=== PATIENT | male | born 1945 | race Hispanic/Latino ===

== ENCOUNTER 2016-07-03 07:10 | Inpatient (IN) | payer OTHER, MEDICARE ==
[2016-07-03 07:10] VITALS: BMI 30.2
[2016-07-03] MEDS ORDERED: DiphenhydrAMINE 50 mg/ml Inj ONE (08:26)
[2016-07-03] MEDS ORDERED: DiphenhydrAMINE 50 mg/ml Inj IM STA (08:27)
--- NOTE | 2016-07-03 08:27 | ED PDOC ---
HPI: Psych/Substance Abuse Time Seen by Provider: 07/03/16 07:41 Chief Complaint (Nursing): Psychiatric Evaluation Chief Complaint (Provider): crisis evaluation ED Caveat: Uncooperative (unable to cooperate with Hx due to anxiety) History Per: Family History/Exam Limitations: clinical condition Current Symptoms Are (Timing): Still Present Suicide/Self Injury Attempted (Context): None Additional Complaint(s): 70yo male is brought to the ED for crisis evaluation. Patient reportedly tearful and "howling" for 3 days. He is taking valproic acid, gabapentin, quetiapine,naproxen, clonazepam, zolpidem tartrate, pravastatin sodium, [place]. Past Medical History Reviewed: Historical Data, Nursing Documentation, Vital Signs, Unable To Obtain Vital Signs: Last Vital Signs Temp 98.4 F 07/03/16 07:17 Pulse 75 07/03/16 07:17 Resp 18 07/03/16 07:17 BP 139/79 07/03/16 07:17 Pulse Ox 96 07/03/16 07:17 - Medical History PMH: Anxiety, Asthma, Atrial Fibrillation, Bipolar Disorder, COPD, Depression, Diabetes, Emphysema, Gastritis, Gall Bladder Disease, HTN, Hypercholesterolemia , Parkinson's Disease, Schizophrenia Denies: Hepatitis, HIV, Kidney Stones, Chronic Kidney Disease, Seizures, Sexually Transmitted Disease - Surgical History Surgical History: Appendectomy, Hernia Repair (ventral) - Family History Family History: States: Unknown Family Hx - Immunization History Hx Tetanus Toxoid Vaccination: No Hx Influenza Vaccination: No Hx Pneumococcal Vaccination: No - Home Medications Home Medications: Ambulatory Orders Medication Instructions Recorded Aspirin [Ecotrin] 81 mg PO DAILY 07/03/16 Carbidopa/Levodopa 1 tab PO TID 07/03/16 [Carbidopa-Levodopa 25-100 Tab] Clonazepam [Klonopin] 0.5 mg PO Q12H 07/03/16 Dextromethorphan HBr/Quinidine 1 cap PO BID 07/03/16 [Nuedexta 20-10 mg Capsule] Divalproex [Depakote ER] 1,000 mg PO HS 07/03/16 Fluticasone/Salmeterol 250/50 1 puff IH Q12H 07/03/16 [Advair Diskus 250/50] Gabapentin [Neurontin] 100 mg PO TID 07/03/16 Lisinopril [Zestril] 10 mg PO DAILY 07/03/16 MetFORMIN [glucoPHAGE] 1,000 mg PO BID 07/03/16 Metoprolol Tartrate [Lopressor] 50 mg PO DAILY 07/03/16 Naproxen [Naprosyn] 500 mg PO BID 07/03/16 Pantoprazole Sodium [Protonix] 40 mg PO DAILY 07/03/16 Pravastatin Sodium [Pravachol] 40 mg PO HS 07/03/16 Quetiapine Fumarate [Seroquel] 300 mg PO HS 07/03/16 Zolpidem [Ambien] 5 mg PO HS 07/03/16 - Allergies Allergies/Adverse Reactions: Allergies Allergy/AdvReac Type Severity Reaction Status Date / Time No Known Allergies Allergy Verified 07/03/16 07:26 Review of Systems Review Of Systems: ROS cannot be obtained secondary to pt's inabilty to answer questions. Physical Exam - Reviewed Nursing Documentation Reviewed: Yes Vital Signs Reviewed: Yes - Physical Exam Appears: Positive for: Well, Non-toxic, No Acute Distress Head Exam: Positive for: ATRAUMATIC, NORMAL INSPECTION, NORMOCEPHALIC Skin: Positive for: Warm, Dry Eye Exam: Positive for: EOMI, PERRL Cardiovascular/Chest: Positive for: Regular Rate, Rhythm Respiratory: Positive for: Normal Breath Sounds. Negative for: Rales, Rhonchi, Wheezing Gastrointestinal/Abdominal: Positive for: Soft. Negative for: Tenderness Extremity: Positive for: Normal ROM Neurologic/Psych: Positive for: Other (very anxious) - Laboratory Results Result Diagrams: 07/03/16 08:30 07/03/16 08:30 - ECG O2 Sat by Pulse Oximetry: 96 (RA) Pulse Ox Interpretation: Normal Medical Decision Making Medical Decision Makin: labs, IV fluids, benadryl ordered. Patient will be seen by crisis. 1200: patient is medically stable for admssion to psych Disposition - Clinical Impression Clinical Impression: Anxiety - Patient ED Disposition Is Patient to be Admitted: Yes Doctor Will See Patient In The: Hospital - Disposition Disposition: Transfer of Care Disposition Time: 12:00 Condition: FAIR - Pt Status Changed To: Hospital Disposition Of: Inpatient - Admit Certification Admit to Inpatient:: After my assessment, the patient will require hospitalization for at least two midnights. This is because of the severity of symptoms shown, intensity of services needed, and/or the medical risk in this patient being treated as an outpatient. - POA Present On Arrival: None Additional Comments - Additional Comments Additional Comments: Scribe Attestation: Documented by Brent Cabrera acting as a scribe for Kamryn Beckford MD. Provider Scribe Attestation: All medical record entries made by the Scribe were at my direction and personally dictated by me. I have reviewed the chart and agree that the record accurately reflects my personal performance of the history, physical exam, medical decision making, and the department course for this patient. I have also personally directed, reviewed, and agree with the discharge instructions and disposition.
[2016-07-03] MEDS ORDERED: Sodium Chloride 0.9% 1,000 ML IV STA (08:28)
[2016-07-03 08:58] LABS: BASO % 0.4 % (0.0-2.0); HEMATOCRIT 41.1 % (35.0-51.0); LYMPH # 0.8 K/uL (1.0-4.3); LYMPH % 12.7 % (20.0-40.0); MEAN CELL VOLUME 90.9 fl (80.0-94.0); MEAN CORPUSCULAR HEMOGLOBIN 30.9 pg (27.0-31.0); MEAN CORPUSCULAR HGB CONC 33.9 g/dL (33.0-37.0); MEAN PLATELET VOLUME 8.1 fl (7.2-11.7); MONO # 0.7 K/uL (0.0-0.8); MONO % 10.7 % (0.0-10.0); NEUT # 5.1 K/uL (1.8-7.0); NEUT % 76.2 % (50.0-75.0); NRBC % 0.1 % (0.0-0.0); RED CELL DISTRIBUTION WIDTH 14.8 % (11.5-14.5); WHITE BLOOD COUNT 6.7 K/uL (4.8-10.8)
[2016-07-03 09:15] LABS: ALB/GLOB RATIO 1.1 (1.0-2.1); ALKALINE PHOSPHATASE 60 U/L (38-126); ALT/SGPT 36 U/L (21-72); AST/SGOT 43 U/L (17-59); BILIRUBIN,TOTAL 0.8 mg/dl (0.2-1.3); BLOOD UREA NITROGEN 32 mg/dl (9-20); CALCIUM 9.5 mg/dL (8.4-10.2); CARBON DIOXIDE 18 mmol/L (22-30); CHLORIDE 107 mmol/L (98-107); GFR AFRICAN-AMERICAN > 60; GLUCOSE,RANDOM 166 mg/dL (75-110); POTASSIUM 3.6 MMOL/L (3.6-5.0); SODIUM 148 mmol/l (132-148); TOTAL PROTEIN 8.2 G/DL (6.3-8.2)
[2016-07-03 13:21] VITALS: O2SAT 98
[2016-07-03] MEDS ORDERED: Magnesium Hydroxide Susp 30 ml UD PO PRN (15:25)
[2016-07-03] MEDS ORDERED: Alum-Mag Hydrox-Simethicone Susp (30 mL) PO PRN (15:26)
[2016-07-03] MEDS ORDERED: Bismuth Subsalicylate 262 mg/15 ml Sus (240 ml) PO PRN (15:26)
[2016-07-03] MEDS ORDERED: DiphenhydrAMINE 50 mg/ml Inj IM PRN (15:44)
[2016-07-03 18:01] LABS: RBC URINE 2 /hpf (0-3); URINE BACTERIA RARE (<OCC); URINE BILIRUBIN NEGATIVE (NEGATIVE); URINE BLOOD NEGATIVE (NEGATIVE); URINE COLOR YELLOW (YELLOW); URINE GLUCOSE (UA) 50 mg/dL (Normal); URINE KETONE TRACE mg/dL (NEGATIVE); URINE LEUKOCYTE ESTERASE NEG Leu/uL (Negative); URINE PROTEIN 30 mg/dL (NEGATIVE); URINE UROBILINOGEN 0.2-1.0 mg/dL (0.2-1.0); WBC URINE 2 /hpf (0-5)
--- NOTE | 2016-07-03 18:28 | CP.PCM.CON ---
History of Present Illness - History of Present Illness History of Present Illness: 70 yo male with history of COPD, AFib, DMII, HTN, HLD, Parkinsons and Anxiety brought in because of being tearful and howling for 3 days because of severe anxiety. Review of Systems - Review of Systems All systems: reviewed and no additional remarkable complaints except (aside from those mentioned above, 12 point system review were negative by me) Past Patient History - Past Medical History & Family History Past Medical History?: Yes - Past Social History Smoking Status: Never Smoked Chewing Tobacco Use: No Cigar Use: No Alcohol: None Drugs: Denies - CARDIAC Hx Cardiac Disorders: Yes Hx Atrial Fibrillation: Yes Hx Hypercholesterolemia: Yes Hx Hypertension: Yes - PULMONARY Hx Asthma: Yes Hx Chronic Obstructive Pulmonary Disease (COPD): Yes Hx Emphysema: Yes - NEUROLOGICAL Hx Parkinson's Disease: Yes Hx Seizures: Yes - HEENT Hx HEENT Problems: No - RENAL Hx Chronic Kidney Disease: No - ENDOCRINE/METABOLIC Hx Diabetes Mellitus Type 2: Yes - HEMATOLOGICAL/ONCOLOGICAL Hx Blood Disorders: No Hx Human Immunodeficiency Virus (HIV): No - INTEGUMENTARY Hx Dermatological Problems: No - MUSCULOSKELETAL/RHEUMATOLOGICAL Hx Musculoskeletal Disorders: Yes Hx Falls: No - GASTROINTESTINAL Hx Gastrointestinal Disorders: Yes Hx Gall Bladder Disease: Yes Hx Gastritis: Yes - GENITOURINARY/GYNECOLOGICAL Hx Genitourinary Disorders: No Hx Sexually Transmitted Disorders: No - PSYCHIATRIC Hx Anxiety: Yes Hx Bipolar Disorder: Yes Hx Depression: Yes Hx Schizophrenia: Yes Hx Substance Use: No - SURGICAL HISTORY Hx Appendectomy: Yes - ANESTHESIA Hx Anesthesia: Yes Hx Anesthesia Reactions: No Hx Malignant Hyperthermia: No Meds Allergies/Adverse Reactions: Allergies Allergy/AdvReac Type Severity Reaction Status Date / Time No Known Allergies Allergy Verified 07/03/16 07:26 - Medications Medications: Current Medications Acetaminophen (Tylenol 325mg Tab) 650 mg PO Q4 PRN PRN Reason: Pain, Mild (1-3) Al Hydrox/Mg Hydrox/Simethicone (Maalox Plus 30 Ml) 30 ml PO Q4 PRN PRN Reason: Indigestion / Heartburn Bismuth Subsalicylate (Pepto-Bismol) 524 mg PO Q4 PRN PRN Reason: Diarrhea Clonazepam (Klonopin) 0.5 mg PO Q12 PRN PRN Reason: Anxiety Diphenhydramine HCl (Benadryl) 50 mg PO Q6 PRN PRN Reason: Sleep Last Admin: 07/03/16 16:05 Dose: 50 mg Diphenhydramine HCl (Benadryl) 50 mg IM Q6 PRN PRN Reason: Agitation Divalproex Sodium (Depakote Er(Once Daily)) 1,000 mg PO HS WILLIAM Haloperidol (Haldol) 2 mg PO Q6 PRN PRN Reason: Agitation Haloperidol Lactate (Haldol) 2 mg IM Q6 PRN PRN Reason: Agitation Lorazepam (Ativan) 0.5 mg PO Q4 PRN PRN Reason: Anxiety Last Admin: 07/03/16 16:05 Dose: 0.5 mg Lorazepam (Ativan) 0.5 mg IM Q4 PRN PRN Reason: Agitation Magnesium Hydroxide (Milk Of Magnesia) 30 ml PO HS PRN PRN Reason: Constipation Zolpidem Tartrate (Ambien) 5 mg PO HS PRN PRN Reason: Insomnia Physical Exam - Constitutional Appears: Other (trembling and howling) - Head Exam Head Exam: ATRAUMATIC - Eye Exam Eye Exam: absent: Scleral icterus - ENT Exam ENT Exam: Mucous Membranes Moist - Neck Exam Neck exam: Negative for: Meningismus - Respiratory Exam Respiratory Exam: absent: Rhonchi, Wheezes, Respiratory Distress - Cardiovascular Exam Cardiovascular Exam: REGULAR RHYTHM, +S1, +S2 - GI/Abdominal Exam GI & Abdominal Exam: Soft. absent: Tenderness - Rectal Exam Rectal Exam: Deferred - Neurological Exam Neurological exam: Alert, Oriented x3 - Psychiatric Exam Psychiatric exam: Anxious - Skin Skin Exam: Dry, Intact Results - Vital Signs Recent Vital Signs: Last Vital Signs Temp 99.5 F 07/03/16 15:56 Pulse 92 H 07/03/16 15:56 Resp 18 07/03/16 15:56 BP 135/73 07/03/16 15:56 Pulse Ox 98 07/03/16 13:41 - Labs Result Diagrams: 07/03/16 08:30 07/03/16 08:30 Labs: Laboratory Results - last 24 hr 07/03/16 07/03/16 15:16 17:44 POC Glucose (mg/dL) 128 H Urine Color Yellow Urine Clarity Slighty-cloudy Urine pH 6.0 Ur Specific [place] 1.018 Urine Protein 30 Urine Glucose (UA) 50 Urine Ketones Trace Urine Blood Negative Urine Nitrate Negative Urine Bilirubin Negative Urine Urobilinogen 0.2-1.0 Ur Leukocyte Esterase Neg Urine RBC (Auto) 2 Urine Microscopic WBC 2 Ur Squamous Epith Cells 1 Urine Bacteria Rare Hyaline Casts 0-2 Assessment & Plan (1) Anxiety Status: Acute Priority: Medium Comment: psyche is managing (2) Diabetes mellitus Status: Acute Comment: BS relatively controlled. Metformin 1000mg PO BID. HgA1C, BMP in am (3) Essential hypertension Status: Acute Comment: BP stable. Metoprolol Tartrate 50mg PO daily. Lisinopril 10mg PO daily (4) Atrial fibrillation Status: Acute Comment: rate controlled. continue Metoprolol (5) Parkinson disease Status: Acute Comment: on Carbidopa/Levodopa
[2016-07-03] MEDS: Insulin Lispro (humaLOG) 100 Units/ml Inj SC SCH (21:31)
[2016-07-03] MEDS: Divalproex 500 mg ER (ONCE DAILY formulation) PO SCH (21:32)
[2016-07-03] MEDS: Pravastatin Sodium 40 MG TAB PO SCH (21:33)
[2016-07-03] MEDS: Fluticasone-Salmeterol 250-50mcg Diskus IH SCH (21:34)
[2016-07-04 07:52] LABS: HEMATOCRIT 38.3 % (35.0-51.0); MEAN CELL VOLUME 92.7 fl (80.0-94.0); MEAN CORPUSCULAR HEMOGLOBIN 30.9 pg (27.0-31.0); MEAN CORPUSCULAR HGB CONC 33.3 g/dL (33.0-37.0); RED CELL DISTRIBUTION WIDTH 14.9 % (11.5-14.5); WHITE BLOOD COUNT 5.8 K/uL (4.8-10.8)
[2016-07-04 08:01] LABS: BLOOD UREA NITROGEN 26 mg/dl (9-20); CALCIUM 8.8 mg/dL (8.4-10.2); CARBON DIOXIDE 20 mmol/L (22-30); CHLORIDE 107 mmol/L (98-107); GFR AFRICAN-AMERICAN > 60; GLUCOSE,RANDOM 134 mg/dL (75-110); POTASSIUM 3.6 MMOL/L (3.6-5.0); SODIUM 143 mmol/l (132-148)
[2016-07-04] MEDS: Pantoprazole 40 mg EC Tab PO SCH (08:30)
[2016-07-04 08:32] LABS: THYROID STIMULATING HORMONE 0.99 mIU/ML (0.46-4.68)
[2016-07-04] MEDS: Fluticasone-Salmeterol 250-50mcg Diskus IH SCH ×2 (08:32→18:22)
[2016-07-04] MEDS: Insulin Lispro (humaLOG) 100 Units/ml Inj SC SCH ×3 (08:39→15:54)
--- NOTE | 2016-07-04 15:12 | PCM.PSYCH ---
Initial Psychiatric Evaluation - Initial Psychiatric Evaluation Type of Admission: Voluntary Legal Status: Capacity Chief Complaint (in patient's own words): "I'm nervous" Patient's Reaction to Hospitalization: HPI: 70 yo male w/ h/o schizoaffective disorder, multiple psychiatric admissions , presents acutely paranoia, anxious, depressed, with visual hallucinations of demons in the context of possible medication non-compliance. Additional collateral history from community service worker: 70 y/o Male referred by family due to depression and anxiety. Pt had prior admissions to [facility] due to similar symptoms. Presently patient is in the care of Dr. South at [facility]. [employer] attempted to speak with Dr. South to inquiry further information on patient's treatment. [employer] spoke with Micaela Renae who is patient therapist. As per Oc patient have an appointment tomorrow with patient. Pt. have a long history of depression and anxiety. Pt. is in compliance with treatment and medications. No history of suicide attempts, as per Ms. Renae. [employer]orer was unable to complete assessment due to patient' s condition. Pt. answered a few questions but due to his emotional state, pt. start crying and unable to speak. Pt. was asked if he wants to hurt himself, Pt. denied suicidal or homocidal ideations. Pt. is emotional but is unable to express why he is crying. Pt. was asked if he is willing to accept admission at [facility], patient stated that he will accept admission. Pt. asked not to call their son, to asked his recommendation about admission because he wanted to stay. Pt's called Mr. Nii Jarquin, patient's son who reported that patient can not sleep for a few days, due to a high level of anxiety, pt. had been crying and depressed. Pt. have medical problems, Parkinson's Disease, COPD , Asthma, HTN. As per history obtained from patient's records it was reported no history of abuse or neglect. Pt. had a suicidal attempted by jumping in front of a car in the past. Pt' had been admitted numerous times with a diagnosis of Schizophenia, Bipolar Disorder. Pt. reporting feeling very nervous. As per family patient don't have a history of alcohol or drug abuse. Pt. speech is minimal, his mood is nervous, tearful, continue to whinning and crying. Dr. Ware was apparaised of case, pt. is being admitted at [facility]. CW explained to patient and family admission procedure. Pt. understood that he is being admitted to [facility]. Pt. continues to feel anxious, stating that he feel scare. No other information provided. [employer] received collateral information from patient's son Nii Jarquin [phone] who stated that patient have a history of Anxiety and Depression. Pt. had been very anxious for the past 3 days. patient is not sleeping, crying, pacing, whinning. As per Mr. Jarquin patient usually have this symptoms around the Holidays, especially mother's and father's day. Pt. remembers about his parents , family. Pt. gets sad affecting his appetite, and sleeping patterns. No history of suicidal ideations. Mr. Jarquin stated that patient need to be admitted to the hospital. Past Psych Hx: H/o schizoaffective disorder. One suicide attempt by jumping in front of a car. Denies h/o aggressive or assaultive behavior. No legal h/o. No h/o abuse/trauma. No Etoh or drug use. FHx: Denies family hx mental illness PMHx: ASTHMA, COPD, DM, GASTRITIS, HTN, HYPERLIPIDEMIA, PARKINSON'S DISEASE, EMPHYSEMA. Social Hx: From [place]. 3 sisters and 6 brothers. Studied up to high school. 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 Lives with . Has 3 sons. Current Medications: Active Medications Generic Name Dose Route Start Last Admin Trade Name Freq PRN Reason Stop Dose Admin Acetaminophen 650 mg 07/03/16 15:24 Tylenol 325mg Tab PO Q4 PRN Pain, Mild (1-3) Al Hydrox/Mg Hydrox/Simethicone 30 ml 07/03/16 15:26 07/03/16 21:37 Maalox Plus 30 Ml PO 30 ml Q4 PRN Administration Indigestion / Heartburn Aspirin 81 mg 07/04/16 09:00 07/04/16 08:38 Ecotrin PO 81 mg DAILY WILLIAM Administration Bismuth Subsalicylate 524 mg 07/03/16 15:26 Pepto-Bismol PO Q4 PRN Diarrhea Carbidopa/Levodopa 1 tab 07/04/16 09:00 07/04/16 12:11 Sinemet PO 1 tab TID WILLIAM Administration Clonazepam 0.5 mg 07/03/16 15:37 07/04/16 06:34 Klonopin PO 0.5 mg Q12 PRN Administration Anxiety Diphenhydramine HCl 50 mg 07/03/16 15:31 07/03/16 16:05 Benadryl PO 50 mg Q6 PRN Administration Sleep Diphenhydramine HCl 50 mg 07/03/16 15:44 Benadryl IM Q6 PRN Agitation Divalproex Sodium 1,000 mg 07/03/16 22:00 07/03/16 21:32 Depakote Er(Once Daily) PO 1,000 mg HS WILLIAM Administration Gabapentin 100 mg 07/04/16 09:00 07/04/16 12:13 Neurontin PO 100 mg TID WILLIAM Administration Haloperidol 2 mg 07/03/16 15:33 Haldol PO Q6 PRN Agitation Haloperidol Lactate 2 mg 07/03/16 15:42 Haldol IM Q6 PRN Agitation Insulin Human Lispro 0 units 07/03/16 22:00 07/04/16 12:11 Humalog SC 1 unit ACHS WILLIAM Administration Protocol Lisinopril 10 mg 07/04/16 09:00 07/04/16 08:31 Zestril PO 10 mg DAILY WILLIAM Administration Lorazepam 0.5 mg 07/03/16 15:29 07/04/16 14:51 Ativan PO 0.5 mg Q4 PRN Administration Anxiety Lorazepam 0.5 mg 07/03/16 15:45 Ativan IM Q4 PRN Agitation Magnesium Hydroxide 30 ml 07/03/16 15:25 Milk Of Magnesia PO HS PRN Constipation Metformin HCl 1,000 mg 07/04/16 09:00 07/04/16 08:33 Glucophage PO 1,000 mg BID WILLIAM Administration Metoprolol Tartrate 50 mg 07/04/16 09:00 07/04/16 08:34 Lopressor PO 50 mg DAILY WILLIAM Administration Pantoprazole Sodium 40 mg 07/04/16 09:00 07/04/16 08:30 Protonix Ec Tab PO 40 mg DAILY WILLIAM Administration Pravastatin Sodium 40 mg 07/03/16 22:00 07/03/16 21:33 Pravachol PO 40 mg HS WILLIAM Administration Fluticasone/Salmeterol 1 puff 07/03/16 18:45 04/20/17 08:32 Advair Diskus 250/50 IH 1 puff Q12H WILLIAM Administration Zolpidem Tartrate 5 mg 07/03/16 15:36 Ambien PO HS PRN Insomnia Past Psychiatric History - Past Psychiatric History Previous Treatment History: Inpatient Pertinent Medical Hx (Current Medical&Sleep Prob, Allergies): Allergies Allergy/AdvReac Type Severity Reaction Status Date / Time No Known Allergies Allergy Verified 07/03/16 07:26 Aspirin [Ecotrin] 81 mg PO DAILY 07/03/16 Carbidopa/Levodopa [Carbidopa-Levodopa 25-100 Tab] 1 tab PO TID 07/03/16 Clonazepam [Klonopin] 0.5 mg PO Q12H 07/03/16 Dextromethorphan HBr/Quinidine [Nuedexta 20-10 mg Capsule] 1 cap PO BID Divalproex [Depakote ER] 1,000 mg PO HS 07/03/16 Fluticasone/Salmeterol 250/50 [Advair Diskus 250/50] 1 puff IH Q12H 07/03/16 Gabapentin [Neurontin] 100 mg PO TID 07/03/16 Lisinopril [Zestril] 10 mg PO DAILY 07/03/16 MetFORMIN [glucoPHAGE] 1,000 mg PO BID 07/03/16 Metoprolol Tartrate [Lopressor] 50 mg PO DAILY 07/03/16 Naproxen [Naprosyn] 500 mg PO BID 07/03/16 Pantoprazole Sodium [Protonix] 40 mg PO DAILY 07/03/16 Pravastatin Sodium [Pravachol] 40 mg PO HS 07/03/16 Quetiapine Fumarate [Seroquel] 300 mg PO HS 07/03/16 Zolpidem [Ambien] 5 mg PO HS 07/03/16 Review of Systems - Review of Systems All systems: reviewed and no additional remarkable complaints except - Psychiatric Psychiatric: As Per HPI, Abnormal Sleep Pattern, Anxiety, Depression, Hallucinations, Paranoia, Visual Hallucinations Mental Status Examination - Personal Presentation Personal Presentation: Looks stated age - Affect Affect: Other (Anxious) - Motor Activity Motor Activity: Psychomotor Agitation - Reliability in Providing Information Reliability in Providing Information: Fair - Speech Speech: Organized - Mood Mood: Depressed, Anxious - Formal Thought Process Formal Thought Process: Hallucinations, Paranoia - Hallucinations/Delusions Hallucinations: Visual - Obsessions/Compulsions Obsessions: No Compulsions: No - Cognitive Functions Orientation: Person, Place, Situation, Time Sensorium: Alert Estimate of Intelligence: Average Judgement: Intact, as evidence by: Insight regarding need for hospitalization Memory: Recent intact, as evidence by: Ability to recall events of the day, Remote intact, as evidenced by: Abilit to recall sig. life events, Remote intact , as evidenced by: Ability to recall historical events - Risk Risk: Diminished functioning - Strength & Assets Inventory Strength & Assets Inventory: Cooperative DSM 5 DX - DSM 5 DSM 5 Diagnosis: Schizoaffective disorder - Recommended/Plan of Treatment Treatment Recommendations and Plan of Treatment: 70 yo male w/ h/o schizoaffective disorder, presents acutely decompensated in the setting of possible medication non-compliance, patient needs acute inpatient admission for treatment and safety. -Admit to [facility] -Individual and group therapy -Hospitalist consult -Restart home psychiatric medications: Seroquel 300 mg PO HS, Depakote 1000 mg PO HS, Ambient 5 mg PO PRN insomnia, Klonopin 0.5 mg PO Q12 PRN Projected ELOS: 3-5 days Discharge Plan and Discharge Criteria: Discharge to home when psychiatrically stable - Smoking Cessation Smoking Cessation Initiated: No Reason for not providing: Not indicated
[2016-07-04] MEDS: Divalproex 500 mg ER (ONCE DAILY formulation) PO SCH (21:19)
[2016-07-04] MEDS: Pravastatin Sodium 40 MG TAB PO SCH (21:19)
[2016-07-04 22:53] LABS: FOLATE > 20.0 ng/mL
[2016-07-05] MEDS: Fluticasone-Salmeterol 250-50mcg Diskus IH SCH ×2 (08:51→18:45)
[2016-07-05] MEDS: Pantoprazole 40 mg EC Tab PO SCH (08:53)
[2016-07-05] MEDS ORDERED: Divalproex 250 mg DR(BID formulation) PO SCH (09:00)
[2016-07-05] MEDS: Insulin Lispro (humaLOG) 100 Units/ml Inj SC SCH ×2 (09:00→17:44)
--- NOTE | 2016-07-05 17:36 | PCM.PYCHPN ---
Psychiatric Progress Note - Psychiatric Progress Note Patient seen today, length of contact: Patient evaluated, case discussed with team, chart reviewed Patient Chief Complaint: "I'm nervous" Problems Identified/Issues Discussed: Patient reports that he feels less anxious and depressed. He denies hallucinations. He is calmer and engages appropriately with staff and peers. He has been observed sleeping and eating well. Medication Change: No Medical Record Reviewed: Yes Mental Status Examination - Cognitive Function Orientation: Person, Place, Situation, Time Memory: Intact Attention: WNL Concentration: WNL Association: WNL Fund of Knowledge: [facility] Decription of patient's judgement and insights: Fair I/J - Mood Mood: Depressed, Anxious - Affect Affect: Constricted - Speech Speech: Appropriate - Formal Thought Process Formal Thought Process: No Impairment Psychotic Thoughts and Behaviors: Denies acute hallucinations or paranoia - Suicidal Ideation Suicidal Ideation: No - Homicidal Ideation Homicidal Ideation: No Goal/Treatment Plan - Goal/Treatment Plan Need for Continued Stay: Remain at risks for inpatient hospitalization, Severe depression anxiety Progress Toward Problem(s) and Goals/Treatment Plan: 70 yo male w/ h/o schizoaffective disorder, presents acutely decompensated in the setting of possible medication non-compliance, starting to report improvement of symptoms. -Individual and group therapy -Continue Seroquel 300 mg PO HS, Depakote 1000 mg PO HS, Ambient 5 mg PO PRN insomnia, Klonopin 0.5 mg PO Q12 PRN Anxiety Estimated Date of D/C: 07/09/16 - Smoking Cessation Smoking Cessation Initiated: No Reason for not providing: Not indicated
[2016-07-05] MEDS: Pravastatin Sodium 40 MG TAB PO SCH (21:17)
[2016-07-05] MEDS: Divalproex 500 mg ER (ONCE DAILY formulation) PO SCH (21:17)
[2016-07-06] MEDS: Fluticasone-Salmeterol 250-50mcg Diskus IH SCH ×2 (08:32→18:49)
[2016-07-06] MEDS: Pantoprazole 40 mg EC Tab PO SCH (08:33)
[2016-07-06] MEDS: Insulin Lispro (humaLOG) 100 Units/ml Inj SC SCH ×2 (08:34→17:01)
--- NOTE | 2016-07-06 10:43 | PCM.PYCHPN ---
Psychiatric Progress Note - Psychiatric Progress Note Patient seen today, length of contact: discussed with team Patient Chief Complaint: no c/o Problems Identified/Issues Discussed: pt has no c/o medication side effects. no aggression or agitation. feels less anxious, but states he is not sleeping well. Medication Change: No Medical Record Reviewed: Yes Mental Status Examination - Cognitive Function Orientation: Person, Place, Situation, Time Memory: Intact Attention: WNL Concentration: WNL Association: WNL Fund of Knowledge: [facility] Decription of patient's judgement and insights: fair - Mood Mood: Anxious - Affect Affect: Constricted - Speech Speech: Appropriate - Formal Thought Process Formal Thought Process: No Impairment Psychotic Thoughts and Behaviors: denies a/v hallucinations - Suicidal Ideation Suicidal Ideation: No - Homicidal Ideation Homicidal Ideation: No Goal/Treatment Plan - Goal/Treatment Plan Need for Continued Stay: Remain at risks for inpatient hospitalization, Severe depression anxiety Progress Toward Problem(s) and Goals/Treatment Plan: schizoaffective disorder pt improving continue treatment per primary team Estimated Date of D/C: 07/09/16
[2016-07-06] MEDS: Divalproex 500 mg ER (ONCE DAILY formulation) PO SCH (21:24)
[2016-07-06] MEDS: Pravastatin Sodium 40 MG TAB PO SCH (21:24)
[2016-07-07] MEDS: Fluticasone-Salmeterol 250-50mcg Diskus IH SCH ×2 (08:37→21:23)
[2016-07-07] MEDS: Insulin Lispro (humaLOG) 100 Units/ml Inj SC SCH ×2 (08:39→16:58)
[2016-07-07] MEDS: Pantoprazole 40 mg EC Tab PO SCH (08:41)
--- NOTE | 2016-07-07 12:27 | PCM.PYCHPN ---
Psychiatric Progress Note - Psychiatric Progress Note Patient seen today, length of contact: discussed with team Patient Chief Complaint: poor sleep Problems Identified/Issues Discussed: pt has no c/o medication side effects. no aggression or agitation. feels less anxious, states he is not sleeping well- but has not received prn ambien.. Medication Change: No Medical Record Reviewed: Yes Mental Status Examination - Cognitive Function Orientation: Person, Place, Situation, Time Memory: Intact Attention: WNL Concentration: WNL Association: WNL Fund of Knowledge: [facility] Decription of patient's judgement and insights: fair - Mood Mood: Anxious - Affect Affect: Constricted - Speech Speech: Appropriate - Formal Thought Process Formal Thought Process: No Impairment - Suicidal Ideation Suicidal Ideation: No - Homicidal Ideation Homicidal Ideation: No Goal/Treatment Plan - Goal/Treatment Plan Need for Continued Stay: Remain at risks for inpatient hospitalization, Severe depression anxiety Progress Toward Problem(s) and Goals/Treatment Plan: schizoaffective disorder pt improving continue treatment per primary team sara changing ambien to standing Estimated Date of D/C: 07/09/16
[2016-07-07] MEDS: Pravastatin Sodium 40 MG TAB PO SCH (21:23)
[2016-07-07] MEDS: Divalproex 500 mg ER (ONCE DAILY formulation) PO SCH (21:23)
[2016-07-08] MEDS: Fluticasone-Salmeterol 250-50mcg Diskus IH SCH ×2 (08:44→21:38)
[2016-07-08] MEDS: Pantoprazole 40 mg EC Tab PO SCH (08:45)
[2016-07-08] MEDS: Insulin Lispro (humaLOG) 100 Units/ml Inj SC SCH ×2 (08:47→16:41)
--- NOTE | 2016-07-08 08:50 | PCM.PYCHPN ---
Psychiatric Progress Note - Psychiatric Progress Note Patient seen today, length of contact: Patient evaluated, case discussed with team, chart reviewed, 35 min Patient Chief Complaint: "I'm feeling better." Problems Identified/Issues Discussed: No significant events over the weekend. Patient reports that he feels less anxious and depressed. He denies hallucinations. He is calmer and engages appropriately with staff and peers. He has been observed sleeping and eating well. Medication Change: No Medical Record Reviewed: Yes Mental Status Examination - Cognitive Function Orientation: Person, Place, Situation, Time Memory: Intact Attention: WNL Concentration: WNL Association: WNL Fund of Knowledge: [facility] Decription of patient's judgement and insights: Good I/J - Mood Mood: Anxious - Affect Affect: Broad - Speech Speech: Appropriate - Formal Thought Process Formal Thought Process: No Impairment Psychotic Thoughts and Behaviors: No AH/VH/paranoia - Suicidal Ideation Suicidal Ideation: No - Homicidal Ideation Homicidal Ideation: No Goal/Treatment Plan - Goal/Treatment Plan Need for Continued Stay: Remain at risks for inpatient hospitalization, Severe depression anxiety Progress Toward Problem(s) and Goals/Treatment Plan: 70 yo male w/ h/o schizoaffective disorder, presents acutely decompensated in the setting of possible medication non-compliance, now improving clinically. -Individual and group therapy -Continue Seroquel 300 mg PO HS, Depakote 1000 mg PO HS, Ambient 5 mg PO PRN insomnia, Klonopin 0.5 mg PO Q12 PRN Anxiety -Likely discharge Friday, if the patient continues to improve clinically Estimated Date of D/C: 07/10/16 - Smoking Cessation Smoking Cessation Initiated: No Reason for not providing: Not indicated
[2016-07-08] MEDS: Divalproex 500 mg ER (ONCE DAILY formulation) PO SCH (21:38)
[2016-07-08] MEDS: Pravastatin Sodium 40 MG TAB PO SCH (21:38)
[2016-07-09] MEDS: Fluticasone-Salmeterol 250-50mcg Diskus IH SCH ×2 (08:24→18:40)
[2016-07-09] MEDS: Insulin Lispro (humaLOG) 100 Units/ml Inj SC SCH ×2 (08:26→16:52)
[2016-07-09] MEDS: Pantoprazole 40 mg EC Tab PO SCH (08:27)
--- NOTE | 2016-07-09 09:34 | PCM.PYCHPN ---
Psychiatric Progress Note - Psychiatric Progress Note Patient seen today, length of contact: Patient evaluated, case discussed with team, chart reviewed, 35 min Patient Chief Complaint: "I'm feeling better." Problems Identified/Issues Discussed: No significant events overnight. Patient is improving clinically. Patient reports that he feels less anxious and depressed. He denies hallucinations. He is calmer and engages appropriately with staff and peers. He has been observed sleeping and eating well. Medication Change: No Medical Record Reviewed: Yes Mental Status Examination - Cognitive Function Orientation: Person, Place, Situation, Time Memory: Intact Attention: WNL Concentration: WNL Association: [facility] Fund of Knowledge: [facility] Decription of patient's judgement and insights: Good I/J - Mood Mood: Anxious - Affect Affect: Broad - Speech Speech: Appropriate - Formal Thought Process Formal Thought Process: No Impairment Psychotic Thoughts and Behaviors: No AH/VH/paranoia/delusions - Suicidal Ideation Suicidal Ideation: No - Homicidal Ideation Homicidal Ideation: No Goal/Treatment Plan - Goal/Treatment Plan Need for Continued Stay: Severe depression anxiety Progress Toward Problem(s) and Goals/Treatment Plan: 70 yo male w/ h/o schizoaffective disorder, presented acutely decompensated in the setting of possible medication non-compliance, now improving clinically. -Individual and group therapy -Continue Seroquel 300 mg PO HS, Depakote 1000 mg PO HS, Ambient 5 mg PO PRN insomnia, Klonopin 0.5 mg PO Q12 PRN Anxiety -Discharge tomorrow with continued outpatient follow-up Estimated Date of D/C: 07/10/16
[2016-07-09 16:15] VITALS: RESP 18
[2016-07-09] MEDS: Divalproex 500 mg ER (ONCE DAILY formulation) PO SCH (21:30)
[2016-07-09] MEDS: Pravastatin Sodium 40 MG TAB PO SCH (21:30)
[2016-07-10 05:54] VITALS: BP 104/58; PULSE 77; TEMP 98.1
[2016-07-10] MEDS: Fluticasone-Salmeterol 250-50mcg Diskus IH SCH (06:46)
[2016-07-10] MEDS: Insulin Lispro (humaLOG) 100 Units/ml Inj SC SCH (08:59)
[2016-07-10] MEDS: Pantoprazole 40 mg EC Tab PO SCH (09:01)
--- NOTE | 2016-07-10 11:03 | PCM.PYCHDC ---
Mental Status Examination - Mental Status Examination Orientation: Person, Place, Situation, Time Memory: Intact Mood: Neutral Affect: Broad Speech: Appropriate Attention: WNL Concentration: WNL Association: WNL Fund of Knowledge: WNL Formal Thought Process: No Impairment Description of patient's judgement and insight: Good I/J Psychotic Thoughts and Behaviors: No AH/VH/paranoia/delusions Suicidal Ideation: No Current Homicidal Ideation?: No Discharge Summary - Discharge Note Reason for Hospitalization: HPI: 70 yo male w/ h/o schizoaffective disorder, multiple psychiatric admissions , presents acutely paranoia, anxious, depressed, with visual hallucinations of demons in the context of possible medication non-compliance. 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 Pt had prior admissions to [facility] due to similar symptoms. Presently patient is in the care of Dr. South at [facility]. Incident Response Engineer attempted to speak with Dr. South to inquiry further information on patient's treatment. Incident Response Engineer spoke with Micaela Renae who is patient therapist. As per Oc patient have an appointment tomorrow with patient. Pt. have a long history of depression and anxiety. Pt. is in compliance with treatment and medications. No history of suicide attempts, as per Ms. Renae. Incident Response Engineer was unable to complete assessment due to patient' s condition. Pt. answered a few questions but due to his emotional state, pt. start crying and unable to speak. Pt. was asked if he wants to hurt himself, Pt. denied suicidal or homocidal ideations. Pt. is emotional but is unable to express why he is crying. Pt. was asked if he is willing to accept admission at [facility], patient stated that he will accept admission. Pt. asked not to call their son, to asked his recommendation about admission because he wanted to stay. Pt's called Mr. Nii Jarquin, patient's son who reported that patient can not sleep for a few days, due to a high level of anxiety, pt. had been crying and depressed. Pt. have medical problems, Parkinson's Disease, COPD , Asthma, HTN. As per history obtained from patient's records it was reported no history of abuse or neglect. Pt. had a suicidal attempted by jumping in front of a car in the past. Pt' had been admitted numerous times with a diagnosis of Schizophenia, Bipolar Disorder. Pt. reporting feeling very nervous. As per family patient don't have a history of alcohol or drug abuse. Pt. speech is minimal, his mood is nervous, tearful, continue to whinning and crying. Dr. Ware was apparaised of case, pt. is being admitted at [facility]. CW explained to patient and family admission procedure. Pt. understood that he is being admitted to [facility]. Pt. continues to feel anxious, stating that he feel scare. No other information provided. Incident Response Engineer received collateral information from patient's son Nii Jarquin [phone] who stated that patient have a history of Anxiety and Depression. Pt. had been very anxious for the past 3 days. patient is not sleeping, crying, pacing, whinning. As per Mr. Jarquin patient usually have this symptoms around the Holidays, especially mother's and father's day. Pt. remembers about his parents , family. Pt. gets sad affecting his appetite, and sleeping patterns. No history of suicidal ideations. Mr. Jarquin stated that patient need to be admitted to the hospital. Past Psych Hx: H/o schizoaffective disorder. One suicide attempt by jumping in front of a car. Denies h/o aggressive or assaultive behavior. No legal h/o. No h/o abuse/trauma. No Etoh or drug use. FHx: Denies family hx mental illness PMHx: ASTHMA, COPD, DM, GASTRITIS, HTN, HYPERLIPIDEMIA, PARKINSON'S DISEASE, EMPHYSEMA. Social Hx: From [place]. 3 sisters and 6 brothers. Studied up to high school. 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 Lives with . Has 3 sons. Laboratory Data: Abnormal Lab Results 07/09/16 07/10/16 15:44 05:57 POC Glucose (mg/dL) 106 111 H Consultations:: List each consultation separately and include: 1. Reason for request. 2. Findings. 3. Follow-up Consultations: Medicine consult- no acute changes to his medications Summary of Hospital Course include:: 1. Description of specific treatment plan utilized for patients during their course of treatmen. 2. Summarize the time- course for resolution of acute symptoms and/or regressed behaviors. 3. Describe issues identified and worked on during hospitalization. 4. Describe medication utilized. 5. Describe medical problems identified and treated. 6. Reassessment of suicide risk Summary of Hospital Course: Patient admitted to the geriatric psychiatry unit and was restabilized on his medications: Seroquel 300 mg PO HS, Depakote 1000 mg PO HS, Klonopin 0.5 mg PO Q12 PRN Anxiety, which he likely not complaint with at home. Patient no longer reports depression/anxiety/hallucinations. He is psychiatrically stable for discharge with continued outpatient follow-up. - Final Diagnosis (DSM 5) Condition upon Discharge: FAIR DSM 5: Schizoaffective Disorder Disposition: HOME/ ROUTINE Follow-up Treatment Plan: 70 yo male w/ h/o schizoaffective disorder, presented acutely decompensated in the setting of possible medication non-compliance, now improved and psychiatrically stable for discharge. -Individual and group therapy -Continue Seroquel 300 mg PO HS, Depakote 1000 mg PO HS, Klonopin 0.5 mg PO Q12 PRN Anxiety -Discharge today with continued outpatient follow-up - Smoking Cessation Smoking Cessation Medication prescribed: No Reason for not providing: Not indicated - Antipsychotic Medications Pt discharged on 2 or more routine antipsychotic medications: No
== END 2016-07-10 13:15 | disposition home or self-care (01) | DRG 430 ==
LOC: H.ER 07:10 → H.ERHOLD 12:20 → H.STEP 14:06
PROVIDERS: ADMIT Psychiatry & Neurology Psychiatry; ATTEND Psychiatry & Neurology Psychiatry
PROC: GZ51ZZZ Individual Psychotherapy, Behavioral (ICD-10-PCS; principal; 2016-07-03)
DX: F25.9 Schizoaffective disorder, unspecified (principal); G20 Parkinson's disease; I48.91 Unspecified atrial fibrillation; E11.9 Type 2 diabetes mellitus without complications; J44.9 Chronic obstructive pulmonary disease, unspecified; Z91.14 Patient's other noncompliance with medication regimen; F31.9 Bipolar disorder, unspecified; F41.9 Anxiety disorder, unspecified; J45.909 Unspecified asthma, uncomplicated; I10 Essential (primary) hypertension; E78.5 Hyperlipidemia, unspecified; E78.00 Pure hypercholesterolemia, unspecified

== ENCOUNTER 2016-07-31 10:48 | Emergency (ER) | payer MEDICARE, OTHER ==
[2016-07-31 10:56] VITALS: TEMP 97.8
[2016-07-31 10:57] VITALS: BMI 31.9
--- NOTE | 2016-07-31 13:07 | ED PDOC ---
HPI: Abdomen Time Seen by Provider: 07/31/16 11:00 Chief Complaint (Nursing): Abdominal Pain Chief Complaint (Provider): Abdominal Pain History Per: Patient History/Exam Limitations: no limitations Onset/Duration Of Symptoms: Days Current Symptoms Are (Timing): Still Present Severity: Mild Location Of Pain/Discomfort: Diffuse Quality Of Discomfort: "Pain" Associated Symptoms: Constipation. denies: Fever, Nausea, Vomiting Exacerbating Factors: None Alleviating Factors: None Additional Complaint(s): Patient is a 70 year old male with pyschiatric history who presents to ED for diffuse abdominal pain for 6 days. Patient notes that he has not had a bowel movement in 6 days. Denies fever, nausea or vomiting. Past Medical History Reviewed: Historical Data, Nursing Documentation, Vital Signs Vital Signs: Last Vital Signs Temp 97.8 F 07/31/16 10:55 Pulse 55 L 07/31/16 14:13 Resp 18 07/31/16 14:13 BP 134/79 07/31/16 14:13 Pulse Ox 99 07/31/16 14:13 - Medical History PMH: Anxiety, Asthma, Atrial Fibrillation, Bipolar Disorder, COPD, Depression, Diabetes, Emphysema, Gastritis, Gall Bladder Disease, HTN, Hypercholesterolemia , Parkinson's Disease, Schizophrenia, Seizures Denies: Hepatitis, HIV, Kidney Stones, Chronic Kidney Disease, Sexually Transmitted Disease - Surgical History Surgical History: Appendectomy, Hernia Repair (ventral) - Family History Family History: States: Unknown Family Hx - Living Arrangements Living Arrangements: With Family - Social History Current smoker - smoking cessation education provided: No Alcohol: None Drugs: Denies - Immunization History Hx Tetanus Toxoid Vaccination: No Hx Influenza Vaccination: No Hx Pneumococcal Vaccination: No - Home Medications Home Medications: Ambulatory Orders Medication Instructions Recorded Aspirin [Ecotrin] 81 mg PO DAILY 07/03/16 Carbidopa/Levodopa 1 tab PO TID 07/03/16 [Carbidopa-Levodopa 25-100 Tab] Clonazepam [Klonopin] 0.5 mg PO Q12H 07/03/16 Dextromethorphan HBr/Quinidine 1 cap PO BID 07/03/16 [Nuedexta 20-10 mg Capsule] Divalproex [Depakote ER] 1,000 mg PO HS 07/03/16 Fluticasone/Salmeterol 250/50 1 puff IH Q12H 07/03/16 [Advair Diskus 250/50] Gabapentin [Neurontin] 100 mg PO TID 07/03/16 Lisinopril [Zestril] 10 mg PO DAILY 07/03/16 MetFORMIN [glucoPHAGE] 1,000 mg PO BID 07/03/16 Metoprolol Tartrate [Lopressor] 50 mg PO DAILY 07/03/16 Pantoprazole Sodium [Protonix] 40 mg PO DAILY 07/03/16 Pravastatin Sodium [Pravachol] 40 mg PO HS 07/03/16 Quetiapine Fumarate [Seroquel] 300 mg PO HS 07/03/16 Docusate Sodium [Colace] 100 mg PO BID PRN #10 capsule 07/31/16 - Allergies Allergies/Adverse Reactions: Allergies Allergy/AdvReac Type Severity Reaction Status Date / Time No Known Allergies Allergy Verified 07/03/16 07:26 Review of Systems ROS Statement: Except As Marked, All Systems Reviewed And Found Negative Constitutional: Negative for: Fever Respiratory: Negative for: Shortness of Breath Gastrointestinal: Positive for: Abdominal Pain, Constipation. Negative for: Nausea, Diarrhea Musculoskeletal: Negative for: Neck Pain, Back Pain Physical Exam - Reviewed Nursing Documentation Reviewed: Yes Vital Signs Reviewed: Yes - Physical Exam Appears: Positive for: Non-toxic, No Acute Distress Skin: Positive for: Normal Color, Warm Eye Exam: Positive for: Normal appearance Neck: Positive for: Normal, Painless ROM Cardiovascular/Chest: Positive for: Regular Rate, Rhythm Respiratory: Positive for: Normal Breath Sounds Gastrointestinal/Abdominal: Positive for: Normal Exam, Bowel Sounds, Soft. Negative for: Distended, Guarding, Rebound Extremity: Positive for: Normal ROM Neurologic/Psych: Positive for: Alert, Oriented - ECG O2 Sat by Pulse Oximetry: 96 (RA) Pulse Ox Interpretation: Normal Medical Decision Making Medical Decision Making: Time: 1220 Initial impression: Constipation Initial plan: -- Fleets enema -- Lactulose 14:04 Upon provider reevaluation patient has had 2 bowel movements, is medically stable, and requires no further treatment in the emergency department at this time. Patient will be discharged home with a prescription for Colace. Counseling was provided and all questions were answered regarding diagnosis and need for follow up with primary medical doctor in 1-2 days. Patient is in agreement with provider's discharge plan and was prompted to return if their symptoms persist or worsen. Clinical Impression: Constipation Scribe Attestation: Documented by Martina Pat and Brent Bolton acting as a scribe for Sylwia Parker MD. Scribe Attestation: All medical record entries made by the Scribe were at my direction and personally dictated by me. I have reviewed the chart and agree that the record accurately reflects my personal performance of the history, physical exam, medical decision making, and the department course for this patient. I have also personally directed, reviewed, and agree with the discharge instructions and disposition. Disposition - Clinical Impression Clinical Impression: Constipation - Patient ED Disposition Is Patient to be Admitted: No Counseled Patient/Family Regarding: Studies Performed, Diagnosis, Need For Followup - Disposition Disposition: Routine/Home Disposition Time: 13:20 Condition: IMPROVED Additional Instructions: follow up with your primary doctor in 1-2 days return to the ED with any worsening or concerning symptoms eat high fiber diet and take colace for constipation Prescriptions: Docusate Sodium [Colace] 100 mg PO BID PRN #10 capsule PRN Reason: Constipation Instructions: Constipation (ED), High Fiber Diet (ED) Print Language: LITHUANIAN
[2016-07-31 14:13] VITALS: BP 134/79; PULSE 55; RESP 18
[2016-07-31 18:13] VITALS: O2SAT 96
== END 2016-07-31 14:14 | disposition home or self-care (01) ==
LOC: H.ER 10:48
DX: K59.00 Constipation, unspecified (principal); Z86.59 Personal history of other mental and behavioral disorders; E11.9 Type 2 diabetes mellitus without complications; I10 Essential (primary) hypertension; G20 Parkinson's disease

== ENCOUNTER 2016-08-04 18:30 | Inpatient (IN) | payer MEDICARE, MEDICAID ==
[2016-08-04 18:31] VITALS: BMI 31.9
[2016-08-04 18:38] VITALS: O2SAT 96
--- NOTE | 2016-08-04 18:53 | ED PDOC ---
Psych Transfer Clearance - Clearance Statement Clearance Statement: Reviewed vital signs, lab results and transfer papers. Patient clinically stable for psychiatric admission.
[2016-08-05] MEDS ORDERED: Bismuth Subsalicylate 262 mg/15 ml Sus (240 ml) PO PRN (01:52)
[2016-08-05] MEDS ORDERED: Magnesium Hydroxide Susp 30 ml UD PO PRN (01:52)
[2016-08-05] MEDS ORDERED: Alum-Mag Hydrox-Simethicone Susp (30 mL) PO PRN (01:52)
[2016-08-05 07:31] LABS: T4 11.8 ug/dl (5.5-11.0)
[2016-08-05 07:44] LABS: THYROID STIMULATING HORMONE 0.75 mIU/ML (0.46-4.68)
--- NOTE | 2016-08-05 10:29 | PCM.PSYCH ---
Initial Psychiatric Evaluation - Initial Psychiatric Evaluation Type of Admission: Voluntary Legal Status: Capacity Chief Complaint (in patient's own words): "I'm depressed" Patient's Reaction to Hospitalization: HPI: 70 yo male w/ h/o schizoaffective disorder, multiple psychiatric admissions , presents acutely depressed, anxious and paranoid. Patient reports that he takes his medications regularly, but has had periods of non-compliance in the past. He reports feeling helpless and states that he has not slept well for the past 7-8 night. +poor concentration. +appetite disturbance. No SI/HI/AH/ VH. Past Psych Hx: Recent admission to [facility]- 07/05/16-07/10/16. H/o schizoaffective disorder. One suicide attempt by jumping in front of a car. Denies h/o aggressive or assaultive behavior. No legal h/o. No h/o abuse/trauma. No Etoh or drug use. FHx: Denies family hx mental illness PMHx: ASTHMA, COPD, DM, GASTRITIS, HTN, HYPERLIPIDEMIA, PARKINSON'S DISEASE, EMPHYSEMA. Social Hx: From [place]. 3 sisters and 6 brothers. Studied up to high school. 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 Lives with . Has 3 sons. Current Medications: Active Medications Generic Name Dose Route Start Last Admin Trade Name Freq PRN Reason Stop Dose Admin Acetaminophen 650 mg 08/05/16 01:52 Tylenol 325mg Tab PO Q4 PRN Pain, moderate (4-7) Al Hydrox/Mg Hydrox/Simethicone 30 ml 08/05/16 01:52 Maalox Plus 30 Ml PO Q4 PRN Dyspepsia Bismuth Subsalicylate 524 mg 08/05/16 01:52 Pepto-Bismol PO Q4 PRN Diarrhea Clonazepam 0.5 mg 08/05/16 10:30 Klonopin PO Q12H WILLIAM Divalproex Sodium 1,000 mg 08/05/16 22:00 Depakote Er(Once Daily) PO HS WILLIAM Docusate Sodium 100 mg 08/05/16 10:26 Colace PO BID PRN Constipation Lorazepam 0.5 mg 08/05/16 01:52 Ativan PO 08/19/16 01:53 HS PRN Insomnia Lorazepam 0.5 mg 08/05/16 01:52 Ativan PO 08/19/16 01:53 Q6 PRN Anixety/Agitation Magnesium Hydroxide 30 ml 08/05/16 01:52 Milk Of Magnesia PO HS PRN Constipation Quetiapine Fumarate 300 mg 08/05/16 22:00 Seroquel PO HS [facility] Past Psychiatric History - Past Psychiatric History Previous Treatment History: Inpatient Pertinent Medical Hx (Current Medical&Sleep Prob, Allergies): Allergies Allergy/AdvReac Type Severity Reaction Status Date / Time No Known Allergies Allergy Verified 07/03/16 07:26 Aspirin [Ecotrin] 81 mg PO DAILY 07/03/16 Carbidopa/Levodopa [Carbidopa-Levodopa 25-100 Tab] 1 tab PO TID 07/03/16 Clonazepam [Klonopin] 0.5 mg PO Q12H 07/03/16 Dextromethorphan HBr/Quinidine [Nuedexta 20-10 mg Capsule] 1 cap PO BID Divalproex [Depakote ER] 1,000 mg PO HS 07/03/16 Fluticasone/Salmeterol 250/50 [Advair Diskus 250/50] 1 puff IH Q12H 07/03/16 Gabapentin [Neurontin] 100 mg PO TID 07/03/16 Lisinopril [Zestril] 10 mg PO DAILY 07/03/16 MetFORMIN [glucoPHAGE] 1,000 mg PO BID 07/03/16 Metoprolol Tartrate [Lopressor] 50 mg PO DAILY 07/03/16 Pantoprazole Sodium [Protonix] 40 mg PO DAILY 07/03/16 Pravastatin Sodium [Pravachol] 40 mg PO HS 07/03/16 Quetiapine Fumarate [Seroquel] 300 mg PO HS 07/03/16 Docusate Sodium [Colace] 100 mg PO BID PRN #10 capsule 07/31/16 Naproxen 500 mg PO BID 08/04/16 Review of Systems - Review of Systems All systems: reviewed and no additional remarkable complaints except - Psychiatric Psychiatric: As Per HPI, Anhedonia, Anxiety, Change in Appetite, Depression, Difficulty Concentrating, Irritability, Mood Swings Mental Status Examination - Personal Presentation Personal Presentation: Looks stated age - Affect Affect: Constricted, Depressed - Motor Activity Motor Activity: Calm - Reliability in Providing Information Reliability in Providing Information: Fair - Speech Speech: Organized - Mood Mood: Depressed, Anxious - Formal Thought Process Formal Thought Process: No Impairment - Obsessions/Compulsions Obsessions: No Compulsions: No - Cognitive Functions Orientation: Person, Place, Situation, Time Sensorium: Alert Attention/Concentration: Attentive Judgement: Intact, as evidence by: Insight regarding need for hospitalization Memory: Recent intact, as evidence by: Ability to recall events of the day, Remote intact, as evidenced by: Abilit to recall sig. life events, Remote intact , as evidenced by: Ability to recall historical events - Risk Risk: Diminished functioning - Strength & Assets Inventory Strength & Assets Inventory: Family support, Cooperative DSM 5 DX - DSM 5 DSM 5 Diagnosis: Schizoaffective Disorder - Recommended/Plan of Treatment Treatment Recommendations and Plan of Treatment: -Admit to [facility] -Individual and group therapy -Increase Seroquel to 350 mg PO HS -Continue Depakote 1000 mg PO HS, Klonopin 0.5 mg PO Q12 hr -Disposition planning -Check VPA level Projected ELOS: 4-7 days Discharge Plan and Discharge Criteria: Discharge when psychiatrically stable - Smoking Cessation Reason for not providing: Not indicated
--- NOTE | 2016-08-05 12:09 | CP.PCM.CON ---
History of Present Illness - History of Present Illness History of Present Illness: 70 yo male with history of HTN, COPD, Seizure and Parkinson's Disease admitted to [facility] because of worsening depression. Review of Systems - Review of Systems All systems: reviewed and no additional remarkable complaints except (aside from those mentioned above, 12 point system review were negative by me) Past Patient History - Infectious Disease Hx of Infectious Diseases: None - Tetanus Immunizations Tetanus Immunization: Unknown - Past Medical History & Family History Past Medical History?: Yes Past Family History: Reviewed and not pertinent - Past Social History Smoking Status: Never Smoked Chewing Tobacco Use: No Cigar Use: No Alcohol: None Drugs: Denies - CARDIAC Hx Hypercholesterolemia: Yes Hx Hypertension: Yes - PULMONARY Hx Asthma: Yes Hx Chronic Obstructive Pulmonary Disease (COPD): Yes Hx Emphysema: Yes - NEUROLOGICAL Hx Parkinson's Disease: Yes Hx Seizures: Yes - HEENT Hx HEENT Problems: No - RENAL Hx Chronic Kidney Disease: No Hx Kidney Stones: No - ENDOCRINE/METABOLIC Hx Endocrine Disorders: Yes Hx Diabetes Mellitus Type 2: Yes - HEMATOLOGICAL/ONCOLOGICAL Hx Blood Disorders: No Hx Human Immunodeficiency Virus (HIV): No - INTEGUMENTARY Hx Dermatological Problems: No - MUSCULOSKELETAL/RHEUMATOLOGICAL Hx Musculoskeletal Disorders: No Hx Falls: No - GASTROINTESTINAL Hx Gall Bladder Disease: Yes Hx Gastritis: Yes - GENITOURINARY/GYNECOLOGICAL Hx Genitourinary Disorders: No Hx Sexually Transmitted Disorders: No - PSYCHIATRIC Hx Depression: Yes - SURGICAL HISTORY Hx Appendectomy: Yes - ANESTHESIA Hx Anesthesia: Yes Hx Anesthesia Reactions: No Hx Malignant Hyperthermia: No Meds Allergies/Adverse Reactions: Allergies Allergy/AdvReac Type Severity Reaction Status Date / Time No Known Allergies Allergy Verified 07/03/16 07:26 - Medications Medications: Current Medications Acetaminophen (Tylenol 325mg Tab) 650 mg PO Q4 PRN PRN Reason: Pain, moderate (4-7) Al Hydrox/Mg Hydrox/Simethicone (Maalox Plus 30 Ml) 30 ml PO Q4 PRN PRN Reason: Dyspepsia Bismuth Subsalicylate (Pepto-Bismol) 524 mg PO Q4 PRN PRN Reason: Diarrhea Clonazepam (Klonopin) 0.5 mg PO Q12H [facility] Last Admin: 08/05/16 10:41 Dose: 0.5 mg Divalproex Sodium (Depakote Er(Once Daily)) 1,000 mg PO HS WILLIAM Docusate Sodium (Colace) 100 mg PO BID PRN PRN Reason: Constipation Lorazepam (Ativan) 0.5 mg PO HS PRN PRN Reason: Insomnia Stop: 08/19/16 01:53 Lorazepam (Ativan) 0.5 mg PO Q6 PRN PRN Reason: Anixety/Agitation Stop: 08/19/16 01:53 Magnesium Hydroxide (Milk Of Magnesia) 30 ml PO HS PRN PRN Reason: Constipation Quetiapine Fumarate (Seroquel) 300 mg PO HS WILLIAM Physical Exam - Constitutional Appears: No Acute Distress - Head Exam Head Exam: ATRAUMATIC - Eye Exam Eye Exam: absent: Scleral icterus - ENT Exam ENT Exam: Mucous Membranes Moist - Neck Exam Neck exam: Negative for: Meningismus - Respiratory Exam Respiratory Exam: absent: Rhonchi, Wheezes, Respiratory Distress - Cardiovascular Exam Cardiovascular Exam: REGULAR RHYTHM, +S1, +S2 - GI/Abdominal Exam GI & Abdominal Exam: Soft. absent: Tenderness - Rectal Exam Rectal Exam: Deferred - Extremities Exam Extremities exam: Negative for: pedal edema - Back Exam Back exam: NORMAL INSPECTION - Neurological Exam Neurological exam: Alert, Oriented x3 - Psychiatric Exam Psychiatric exam: Normal Affect - Skin Skin Exam: Dry, Intact Results - Vital Signs Recent Vital Signs: Last Vital Signs Temp 96.6 F L 08/05/16 06:00 Pulse 72 08/05/16 06:00 Resp 19 08/05/16 06:00 BP 105/72 08/05/16 06:00 Pulse Ox 96 08/04/16 18:35 - Labs Labs: Laboratory Results - last 24 hr 08/05/16 08/05/16 06:53 06:53 Ferritin 11.4 Triglycerides 74 D Cholesterol 175 LDL Cholesterol Direct 103 HDL Cholesterol 49 Vitamin B12 271 Free T4 2.48 H Thyroxine (T4) 11.8 H TSH 3rd Generation 0.75 Assessment & Plan (1) Depression Status: Acute Comment: psyche is managing (2) COPD (chronic obstructive pulmonary disease) Status: Chronic Comment: asymptomatic (3) DM2 (diabetes mellitus, type 2) Status: Acute Comment: BS relatively controlled without medications. diabetic diet. accuchek ACHS (4) Hypertension Status: Chronic Comment: BP stable and controlled without medication. low salt diet (5) Seizure Status: Chronic Comment: no seizure activity. on Depakote and Ativan
[2016-08-05] MEDS: Divalproex 500 mg ER (ONCE DAILY formulation) PO SCH (21:13)
[2016-08-05] MEDS: Fluticasone-Salmeterol 250-50mcg Diskus IH SCH (21:14)
[2016-08-06] MEDS: Pantoprazole 40 mg EC Tab PO SCH (09:48)
--- NOTE | 2016-08-06 09:52 | PCM.PYCHPN ---
Psychiatric Progress Note - Psychiatric Progress Note Patient seen today, length of contact: Patient evaluated, case discussed with team, chart reviewed, 35 min Patient Chief Complaint: "I'm depressed" Problems Identified/Issues Discussed: Patient report that he still feels depressed and anxious. He is observed lying in bed with the sheets pulled over his head. He is calm and pleasant towards staff and peers. He is tearful at times. Denies psychosis. NO SI/HI. Medication Change: No Medical Record Reviewed: Yes Consults ordered or reviewed: Medicine consult Mental Status Examination - Cognitive Function Orientation: Person, Place, Situation, Time Memory: Intact Attention: WNL Concentration: WNL Association: [facility] Fund of Knowledge: WN - Mood Mood: Depressed, Anxious - Affect Affect: Constricted, Depressed - Formal Thought Process Formal Thought Process: No Impairment Psychotic Thoughts and Behaviors: NO AH/VH - Suicidal Ideation Suicidal Ideation: No - Homicidal Ideation Homicidal Ideation: No Goal/Treatment Plan - Goal/Treatment Plan Need for Continued Stay: Severe depression anxiety Progress Toward Problem(s) and Goals/Treatment Plan: 70 yo male w/ h/o schizoaffective disorder, continues to report severe depression and anxiety, would benefit from continued inpatient admission for treatment and stabilization. -Individual and group therapy -Continue Seroquel 350 mg PO HS -Continue Depakote 1000 mg PO HS, Klonopin 0.5 mg PO Q12 hr -Disposition planning Estimated Date of D/C: 08/09/16
[2016-08-06 17:31] LABS: FOLATE 19.4 ng/mL
[2016-08-06] MEDS: Divalproex 500 mg ER (ONCE DAILY formulation) PO SCH (21:25)
[2016-08-07] MEDS: Pantoprazole 40 mg EC Tab PO SCH (08:48)
--- NOTE | 2016-08-07 10:13 | PCM.PYCHPN ---
Psychiatric Progress Note - Psychiatric Progress Note Patient seen today, length of contact: Patient evaluated, case discussed with team, chart reviewed, 35 min Patient Chief Complaint: "I'm feeling a little better." Problems Identified/Issues Discussed: Patient report that he is feeling less depressed and anxious. He is observed lying in bed, but is arousable, cooperative and engages appropriately with staff and peers. He is less tearful and labile. Denies psychosis. NO SI/HI. Diagnostic Results: VPA 52.3 on 08/07/16 Medication Change: No Medical Record Reviewed: Yes Consults ordered or reviewed: Medicine consult Mental Status Examination - Cognitive Function Orientation: Person, Place, Situation, Time Memory: Intact Attention: WNL Concentration: WNL Association: WNL Fund of Knowledge: [facility] Decription of patient's judgement and insights: Fair I/J - Mood Mood: Depressed, Anxious - Affect Affect: Constricted, Depressed - Speech Speech: Appropriate - Formal Thought Process Formal Thought Process: No Impairment Psychotic Thoughts and Behaviors: NO AH/VH - Suicidal Ideation Suicidal Ideation: No - Homicidal Ideation Homicidal Ideation: No Goal/Treatment Plan - Goal/Treatment Plan Need for Continued Stay: Severe depression anxiety Progress Toward Problem(s) and Goals/Treatment Plan: 70 yo male w/ h/o schizoaffective disorder, now reports mild improvement in depression and anxiety, would benefit from continued inpatient admission for treatment and stabilization. -Individual and group therapy -Continue Seroquel 350 mg PO HS -Continue Depakote 1000 mg PO HS, Klonopin 0.5 mg PO Q12 hr -Disposition planning- possible discharge Friday if the patient continues to improve clinically Estimated Date of D/C: 08/09/16
[2016-08-07] MEDS: Fluticasone-Salmeterol 250-50mcg Diskus IH SCH ×3 (15:44→16:04)
[2016-08-07] MEDS: Divalproex 500 mg ER (ONCE DAILY formulation) PO SCH (21:14)
[2016-08-08 07:18] LABS: BLOOD UREA NITROGEN 17 mg/dl (9-20); CALCIUM 9.6 mg/dL (8.4-10.2); CARBON DIOXIDE 27 mmol/L (22-30); CHLORIDE 101 mmol/L (98-107); GFR AFRICAN-AMERICAN > 60; GLUCOSE,RANDOM 110 mg/dL (75-110); POTASSIUM 4.5 MMOL/L (3.6-5.0); SODIUM 138 mmol/l (132-148)
--- NOTE | 2016-08-08 08:53 | PCM.PYCHPN ---
Psychiatric Progress Note - Psychiatric Progress Note Patient seen today, length of contact: Patient evaluated, case discussed with team, chart reviewed, 35 min Patient Chief Complaint: "I'm feeling a little better." Problems Identified/Issues Discussed: No significant events overnight. Patient continues to improve clinically. Patient report that he is feeling less depressed and anxious. He engages appropriately with staff and peers. He is less tearful and labile. Denies psychosis. NO SI/HI. Diagnostic Results: VPA 52.3 on 08/07/16 Medication Change: No Medical Record Reviewed: Yes Mental Status Examination - Cognitive Function Orientation: Person, Place, Situation, Time Memory: Intact Attention: WNL Concentration: WNL Association: WNL Fund of Knowledge: [facility] Decription of patient's judgement and insights: Fair I/J - Mood Mood: Depressed, Anxious - Affect Affect: Constricted, Depressed - Speech Speech: Appropriate - Formal Thought Process Formal Thought Process: No Impairment Psychotic Thoughts and Behaviors: NO AH/VH - Suicidal Ideation Suicidal Ideation: No - Homicidal Ideation Homicidal Ideation: No Goal/Treatment Plan - Goal/Treatment Plan Need for Continued Stay: Severe depression anxiety Progress Toward Problem(s) and Goals/Treatment Plan: 70 yo male w/ h/o schizoaffective disorder, now reports improvement in depression and anxiety, would benefit from continued inpatient admission for treatment and stabilization. -Individual and group therapy -Continue Seroquel 350 mg PO HS -Continue Depakote 1000 mg PO HS, Klonopin 0.5 mg PO Q12 hr -Disposition planning- likely discharge Friday if the patient continues to improve clinically Estimated Date of D/C: 08/09/16 - Smoking Cessation Smoking Cessation Initiated: No Reason for not providing: Not indicated
[2016-08-08] MEDS: Fluticasone-Salmeterol 250-50mcg Diskus IH SCH ×2 (09:48→21:33)
[2016-08-08] MEDS: Pantoprazole 40 mg EC Tab PO SCH (09:51)
[2016-08-08] MEDS: Divalproex 500 mg ER (ONCE DAILY formulation) PO SCH (21:15)
[2016-08-09 06:03] VITALS: BP 142/62; PULSE 92; RESP 20; TEMP 97.3
[2016-08-09] MEDS: Fluticasone-Salmeterol 250-50mcg Diskus IH SCH (08:47)
[2016-08-09] MEDS: Pantoprazole 40 mg EC Tab PO SCH (08:50)
--- NOTE | 2016-08-09 09:25 | PCM.PYCHDC ---
Mental Status Examination - Mental Status Examination Orientation: Person, Place, Situation, Time Memory: Impaired Mood: Neutral Affect: Broad Speech: Appropriate Attention: WNL Concentration: WNL Association: WNL Fund of Knowledge: WNL Formal Thought Process: No Impairment Description of patient's judgement and insight: Fair I/J Psychotic Thoughts and Behaviors: NO AH/VH Suicidal Ideation: No Current Homicidal Ideation?: No Discharge Summary - Discharge Note Reason for Hospitalization: HPI: 70 yo male w/ h/o schizoaffective disorder, multiple psychiatric admissions , presents acutely depressed, anxious and paranoid. Patient reports that he takes his medications regularly, but has had periods of non-compliance in the past. He reports feeling helpless and states that he has not slept well for the past 7-8 night. +poor concentration. +appetite disturbance. No SI/HI/AH/ VH. Past Psych Hx: Recent admission to [facility]- 07/05/16-07/10/16. H/o schizoaffective disorder. One suicide attempt by jumping in front of a car. Denies h/o aggressive or assaultive behavior. No legal h/o. No h/o abuse/trauma. No Etoh or drug use. FHx: Denies family hx mental illness PMHx: ASTHMA, COPD, DM, GASTRITIS, HTN, HYPERLIPIDEMIA, PARKINSON'S DISEASE, EMPHYSEMA. Social Hx: From [place]. 3 sisters and 6 brothers. Studied up to high school. 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 Lives with . Has 3 sons. Laboratory Data: Abnormal Lab Results 08/08/16 08/08/16 08/09/16 05:37 15:41 05:37 POC Glucose (mg/dL) 114 H 131 H 146 H Consultations:: List each consultation separately and include: 1. Reason for request. 2. Findings. 3. Follow-up Consultations: Medicine consult Summary of Hospital Course include:: 1. Description of specific treatment plan utilized for patients during their course of treatmen. 2. Summarize the time- course for resolution of acute symptoms and/or regressed behaviors. 3. Describe issues identified and worked on during hospitalization. 4. Describe medication utilized. 5. Describe medical problems identified and treated. 6. Reassessment of suicide risk Summary of Hospital Course: Patient admitted to the hospital and restabilized on his home medications. It is unclear if he is compliant with medications when he is discharged from the hospital. He states that he is, but is unable to tell medical underwriter what medications he takes. Importance of compliance with medications was discussed with the patient. Individual and group therapy provided. Patient is psychiatrically stable for discharge. - Final Diagnosis (DSM 5) Condition upon Discharge: FAIR DSM 5: Schizoaffective Disorder Disposition: HOME/ ROUTINE Follow-up Treatment Plan: 70 yo male w/ h/o schizoaffective disorder, now reports improvement in depression and anxiety. -Individual and group therapy -Continue Seroquel 300 mg PO HS -Continue Depakote 1000 mg PO HS, Klonopin 0.5 mg PO Q12 hr -Discharge to home with outpatient follow-up - Smoking Cessation Smoking Cessation Medication prescribed: No Reason for not providing: Not indicated - Antipsychotic Medications Pt discharged on 2 or more routine antipsychotic medications: No
== END 2016-08-09 10:00 | disposition home or self-care (01) | DRG 885 ==
LOC: H.ER 18:30 → H.ERHOLD 18:52 → H.STEP 21:18
PROVIDERS: ADMIT Psychiatry & Neurology Psychiatry; ATTEND Psychiatry & Neurology Psychiatry
DX: F25.9 Schizoaffective disorder, unspecified (principal); G20 Parkinson's disease; J43.9 Emphysema, unspecified; E11.9 Type 2 diabetes mellitus without complications; I10 Essential (primary) hypertension; J45.909 Unspecified asthma, uncomplicated; E78.5 Hyperlipidemia, unspecified; K29.70 Gastritis, unspecified, without bleeding; G40.909 Epilepsy, unspecified, not intractable, without status epilepticus

== ENCOUNTER 2016-09-23 06:36 | Inpatient (IN) | payer MEDICARE, MEDICAID ==
[2016-09-23 06:37] VITALS: BMI 31.9
[2016-09-23 06:54] VITALS: O2SAT 97
[2016-09-23 07:37] LABS: BASO % 0.6 % (0.0-2.0); EOS # 0.1 K/uL (0.0-0.7); EOS % 0.6 % (0.0-4.0); HEMOGLOBIN 13.9 g/dL (12.0-18.0); LYMPH # 1.2 K/uL (1.0-4.3); LYMPH % 14.7 % (20.0-40.0); MEAN CELL VOLUME 89.6 fl (80.0-94.0); MEAN CORPUSCULAR HEMOGLOBIN 30.8 pg (27.0-31.0); MEAN CORPUSCULAR HGB CONC 34.3 g/dL (33.0-37.0); MEAN PLATELET VOLUME 7.2 fl (7.2-11.7); MONO # 0.5 K/uL (0.0-0.8); MONO % 6.3 % (0.0-10.0); NEUT # 6.5 K/uL (1.8-7.0); NEUT % 77.8 % (50.0-75.0); NRBC % 0.1 % (0.0-0.0); RBC 4.5 Mil/uL (4.40-5.90); RED CELL DISTRIBUTION WIDTH 13.9 % (11.5-14.5); WHITE BLOOD COUNT 8.4 K/uL (4.8-10.8)
[2016-09-23 08:00] LABS: ALB/GLOB RATIO 1.2 (1.0-2.1); ALBUMIN 4.3 g/dL (3.5-5.0); ALT/SGPT 11 U/L (21-72); AST/SGOT 28 U/L (17-59); BLOOD UREA NITROGEN 17 mg/dl (9-20); CALCIUM 9.6 mg/dL (8.4-10.2); GFR AFRICAN-AMERICAN > 60; GFR NON-AFRICAN AMERICAN > 60
--- NOTE | 2016-09-23 09:49 | ED PDOC ---
HPI: Psych/Substance Abuse Time Seen by Provider: 09/23/16 07:04 Chief Complaint (Nursing): Psychiatric Evaluation Chief Complaint (Provider): hes hearing voices ED Caveat: Altered Mental Status, Psychotic Modifying Factor(s): None Severity: Moderate Associated Symptoms: Depression, Paranoia Involuntary Hold By: Emergency Physician Additional History Per: Family, Prior Records Additional Complaint(s): 70yo male history of schizoaffective disorder with multiple prior admissions arrives w family who states he's increasingly paranoid, crying, "seeing people" with appetite and sleep disturbance. Past Medical History Reviewed: Historical Data, Nursing Documentation, Vital Signs Vital Signs: Last Vital Signs Temp 97.3 F L 09/23/16 06:47 Pulse 114 H 09/23/16 06:47 Resp 21 09/23/16 06:47 BP 140/97 H 09/23/16 06:47 Pulse Ox 97 09/23/16 06:47 - Medical History PMH: Anxiety, Asthma, Atrial Fibrillation, Bipolar Disorder, COPD, Depression, Diabetes, Emphysema, Gastritis, Gall Bladder Disease, HTN, Hypercholesterolemia , Parkinson's Disease, Schizophrenia, Seizures Denies: Hepatitis, HIV, Kidney Stones, Chronic Kidney Disease, Sexually Transmitted Disease - Surgical History Surgical History: Appendectomy, Hernia Repair (ventral) - Family History Family History: States: Unknown Family Hx - Living Arrangements Living Arrangements: With Family - Social History Current smoker - smoking cessation education provided: No Alcohol: None - Immunization History Hx Tetanus Toxoid Vaccination: No Hx Influenza Vaccination: No Hx Pneumococcal Vaccination: No - Home Medications Home Medications: Ambulatory Orders Medication Instructions Recorded Aspirin [Ecotrin] 81 mg PO DAILY 07/03/16 Carbidopa/Levodopa 1 tab PO TID 07/03/16 [Carbidopa-Levodopa 25-100 Tab] Clonazepam [Klonopin] 0.5 mg PO Q12H 07/03/16 Dextromethorphan HBr/Quinidine 1 cap PO BID 07/03/16 [Nuedexta 20-10 mg Capsule] Divalproex [Depakote ER] 1,000 mg PO HS 07/03/16 Fluticasone/Salmeterol 250/50 1 puff IH Q12H 07/03/16 [Advair Diskus 250/50] Gabapentin [Neurontin] 100 mg PO TID 07/03/16 Lisinopril [Zestril] 10 mg PO DAILY 07/03/16 MetFORMIN [glucoPHAGE] 1,000 mg PO BID 07/03/16 Metoprolol Tartrate [Lopressor] 50 mg PO DAILY 07/03/16 Pantoprazole Sodium [Protonix] 40 mg PO DAILY 07/03/16 Pravastatin Sodium [Pravachol] 40 mg PO HS 07/03/16 Quetiapine Fumarate [Seroquel] 300 mg PO HS 07/03/16 Docusate Sodium [Colace] 100 mg PO BID PRN #10 capsule 07/31/16 - Allergies Allergies/Adverse Reactions: Allergies Allergy/AdvReac Type Severity Reaction Status Date / Time No Known Allergies Allergy Verified 09/23/16 06:46 Review of Systems Review Of Systems: ROS cannot be obtained secondary to pt's inabilty to answer questions. (poor history) Physical Exam - Reviewed Nursing Documentation Reviewed: Yes Vital Signs Reviewed: Yes - Physical Exam Appears: Positive for: Non-toxic (tearful, anxious, mildly agitated) Head Exam: Positive for: ATRAUMATIC, NORMAL INSPECTION, NORMOCEPHALIC Skin: Positive for: Normal Color, Warm, DRY Eye Exam: Positive for: EOMI, Normal appearance, PERRL ENT: Positive for: Normal ENT Inspection Neck: Positive for: Normal, Painless ROM Cardiovascular/Chest: Positive for: Regular Rate, Rhythm Respiratory: Positive for: CNT, Normal Breath Sounds Gastrointestinal/Abdominal: Positive for: Normal Exam, Bowel Sounds, Soft Back: Positive for: Normal Inspection Extremity: Positive for: Normal ROM Neurologic/Psych: Positive for: Alert, Oriented, Mood/Affect (poor insight, labile). Negative for: Motor/Sensory Deficits - Laboratory Results Result Diagrams: 09/23/16 07:24 09/23/16 07:24 - ECG ECG: Positive for: Interpreted By Nc ECG Rhythm: Positive for: Normal QRS, Normal ST Segment, Sinus Rhythm. Negative for: ST/T Changes Rate: 73 O2 Sat by Pulse Oximetry: 97 Pulse Ox Interpretation: Normal - Radiology X-Ray: Interpreted by Nc X-Ray Interpretation: No Acute Disease (chronic appearing changes) Medical Decision Making Medical Decision Making: workup initiated for psychiatric crisis. bloodwork reviewed, similar to prior values. CXR reviewed, no acute infiltrate Per crisis, admit tyra Ware Medically [facility]. Disposition - Clinical Impression Clinical Impression: Schizoaffective disorder - Patient ED Disposition Is Patient to be Admitted: Yes (aashish) Counseled Patient/Family Regarding: Studies Performed, Diagnosis - Disposition Disposition Time: 09:00 Condition: STABLE - Pt Status Changed To: Hospital Disposition Of: Inpatient - Admit Certification Admit to Inpatient:: After my assessment, the patient will require hospitalization for at least two midnights. This is because of the severity of symptoms shown, intensity of services needed, and/or the medical risk in this patient being treated as an outpatient. - POA Present On Arrival: Poor Glycemic Control
[2016-09-23 10:06] LABS: URINE AMORPHOUS SEDIMENT RARE /ul (<OCC); URINE BILIRUBIN NEGATIVE (NEGATIVE); URINE BLOOD NEGATIVE (NEGATIVE); URINE CLARITY SLIGHTY-CLOUDY (Clear); URINE COLOR AMBER (YELLOW); URINE GLUCOSE (UA) 50 mg/dL (Normal); URINE LEUKOCYTE ESTERASE NEG Leu/uL (Negative); URINE NITRATE NEGATIVE (NEGATIVE); URINE PROTEIN 100 mg/dL (NEGATIVE); URINE UROBILINOGEN 0.2-1.0 mg/dL (0.2-1.0)
[2016-09-23 10:30] LABS: BARBITURATES, UR NEGATIVE (NEGATIVE); BENZODIAZEPINES, UR NEGATIVE (NEGATIVE); OPIATES, UR NEGATIVE (NEGATIVE); PHENCYCLIDINE, UR NEGATIVE (NEGATIVE)
--- NOTE | 2016-09-23 10:33 | RAD ---
HISTORY: ro infiltrate COMPARISON: 12/07/2015. FINDINGS: LUNGS: The lungs are clear. PLEURA: No significant pleural effusion identified, no pneumothorax apparent. CARDIOVASCULAR: Normal. OSSEOUS STRUCTURES: No significant abnormalities. VISUALIZED UPPER ABDOMEN: Normal. OTHER FINDINGS: None. IMPRESSION: No active pulmonary disease.
[2016-09-23] MEDS ORDERED: Alum-Mag Hydrox-Simethicone Susp (30 mL) PO PRN (12:25)
[2016-09-23] MEDS ORDERED: Magnesium Hydroxide Susp 30 ml UD PO PRN (12:25)
[2016-09-23] MEDS ORDERED: Bismuth Subsalicylate 262 mg/15 ml Sus (240 ml) PO PRN (12:25)
--- NOTE | 2016-09-23 12:37 | PCM.PSYCH ---
Initial Psychiatric Evaluation - Initial Psychiatric Evaluation Type of Admission: Voluntary Legal Status: Capacity Chief Complaint (in patient's own words): "I'm depressed and anxious" Patient's Reaction to Hospitalization: HPI: 70 yo male w/ h/o schizoaffective disorder, multiple psychiatric admissions , presents acutely depressed, anxious and paranoid. Patient reports that he takes his medications regularly, but has had periods of non-compliance in the past. He reports feeling helpless/hopeless and states that he has not slept well for the past 7-8 night. +poor concentration. +appetite disturbance. No SI/HI/AH/VH. He is very tearful on interview and has difficulty answering questions because he keeps crying. Past Psych Hx: Recent admissions to [facility]- 07/05/16-07/10/16 and -08/08/16. H /o schizoaffective disorder. One suicide attempt by jumping in front of a car. Denies h/o aggressive or assaultive behavior. No legal h/o. No h/o abuse/ trauma. No Etoh or drug use. FHx: Denies family hx mental illness PMHx: ASTHMA, COPD, DM, GASTRITIS, HTN, HYPERLIPIDEMIA, PARKINSON'S DISEASE, EMPHYSEMA. Social Hx: From [place]. 3 sisters and 6 brothers. Studied up to high school. 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 Lives with . Has 3 sons. Current Medications: Active Medications Generic Name Dose Route Start Last Admin Trade Name Freq PRN Reason Stop Dose Admin Acetaminophen 650 mg 09/23/16 12:25 Tylenol 325mg Tab PO Q4 PRN Pain, moderate (4-7) Al Hydrox/Mg Hydrox/Simethicone 30 ml 09/23/16 12:25 Maalox Plus 30 Ml PO Q4 PRN Dyspepsia Bismuth Subsalicylate 524 mg 09/23/16 12:25 Pepto-Bismol PO Q4 PRN Diarrhea Clonazepam 0.5 mg 09/23/16 12:30 Klonopin PO Q12H WILLIAM Divalproex Sodium 500 mg 09/23/16 17:00 Depakote Er(Once Daily) PO BID [facility] Home Med 1 cap 09/23/16 17:00 Dextromethorphan Hbr/Quinidine [Nuedexta 20-10 Mg Capsule] PO BID WILLIAM Lorazepam 0.5 mg 09/23/16 12:25 Ativan PO 10/07/16 12:26 Q6 PRN Anixety/Agitation Lorazepam 0.5 mg 09/23/16 12:25 Ativan PO 10/07/16 12:26 HS PRN Insomnia Magnesium Hydroxide 30 ml 09/23/16 12:25 Milk Of Magnesia PO HS PRN Constipation Quetiapine Fumarate 300 mg 09/23/16 22:00 Seroquel PO HS WILLIAM Past Psychiatric History - Past Psychiatric History Previous Treatment History: Inpatient Pertinent Medical Hx (Current Medical&Sleep Prob, Allergies): Allergies Allergy/AdvReac Type Severity Reaction Status Date / Time No Known Allergies Allergy Verified 09/23/16 06:46 Aspirin [Ecotrin] 81 mg PO DAILY 07/03/16 Carbidopa/Levodopa [Carbidopa-Levodopa 25-100 Tab] 1 tab PO TID 07/03/16 Clonazepam [Klonopin] 0.5 mg PO Q12H 07/03/16 Dextromethorphan HBr/Quinidine [Nuedexta 20-10 mg Capsule] 1 cap PO BID Divalproex [Depakote ER] 500 mg PO BID 07/03/16 Fluticasone/Salmeterol 250/50 [Advair Diskus 250/50] 1 puff IH Q12H 07/03/16 Gabapentin [Neurontin] 100 mg PO TID 07/03/16 Lisinopril [Zestril] 10 mg PO DAILY 07/03/16 MetFORMIN [glucoPHAGE] 1,000 mg PO BID 07/03/16 Metoprolol Tartrate [Lopressor] 50 mg PO DAILY 07/03/16 Pantoprazole Sodium [Protonix] 40 mg PO DAILY 07/03/16 Pravastatin Sodium [Pravachol] 40 mg PO HS 07/03/16 Quetiapine Fumarate [Seroquel] 300 mg PO HS 07/03/16 Naproxen [Naprosyn] 500 mg PO BID 09/23/16 Zolpidem [Ambien] 5 mg PO HS 09/23/16 Review of Systems - Psychiatric Psychiatric: Abnormal Sleep Pattern, Anhedonia, Anxiety, Change in Appetite, Depression, Difficulty Concentrating, Hopelessness, Irritability, Mood Swings, Paranoia Mental Status Examination - Personal Presentation Personal Presentation: Looks stated age - Affect Affect: Other (Tearful, labile) - Motor Activity Motor Activity: Calm - Reliability in Providing Information Reliability in Providing Information: Fair - Speech Speech: Organized - Mood Mood: Depressed, Anxious - Formal Thought Process Formal Thought Process: Loosening of associations - Obsessions/Compulsions Obsessions: No Compulsions: No - Cognitive Functions Orientation: Person, Place, Situation, Time Sensorium: Alert Attention/Concentration: Attentive Judgement: Intact, as evidence by: Insight regarding need for hospitalization Memory: Recent intact, as evidence by: Ability to recall events of the day - Risk Risk: Diminished functioning - Strength & Assets Inventory Strength & Assets Inventory: Family support, Cooperative DSM 5 DX - DSM 5 DSM 5 Diagnosis: Schizoaffective Disorder - Recommended/Plan of Treatment Treatment Recommendations and Plan of Treatment: -Admit to [facility] -Individual and group therapy -Seroquel 300 mg PO HS, Continue Depakote 500 PO BID, Klonopin 0.5 mg PO Q12 hr - Unclear if patient has been compliant with medications -Disposition planning -Check VPA level Projected ELOS: 5-7 days Discharge Plan and Discharge Criteria: Discharge when psychiatrically stable - Smoking Cessation Smoking Cessation Initiated: No Reason for not providing: Not indicated
[2016-09-23] MEDS: Divalproex 500 mg DR(BID formulation) PO SCH (17:30)
--- NOTE | 2016-09-23 19:04 | CP.PCM.CON ---
History of Present Illness - History of Present Illness History of Present Illness: 70 yo male with history of COPD, DM, HTN, HLD and Parkinson's disease admitted to [facility] because of depression and anxiety. Has not been sleeping well and has poor appetite. Review of Systems - Review of Systems All systems: reviewed and no additional remarkable complaints except (aside from those mentioned above, 12 point system review were negative by me) Past Patient History - Infectious Disease Hx of Infectious Diseases: None - Tetanus Immunizations Tetanus Immunization: Unknown - Past Medical History & Family History Past Medical History?: Yes - Past Social History Smoking Status: Never Smoked Alcohol: None Drugs: Denies - CARDIAC Hx Cardiac Disorders: Yes (HTN. high cholesterol) - PULMONARY Hx Asthma: Yes Hx Chronic Obstructive Pulmonary Disease (COPD): Yes Hx Emphysema: Yes - NEUROLOGICAL Hx Parkinson's Disease: Yes Hx Seizures: Yes - HEENT Hx HEENT Problems: No - RENAL Hx Chronic Kidney Disease: No - ENDOCRINE/METABOLIC Hx Endocrine Disorders: Yes Hx Diabetes Mellitus Type 2: Yes - HEMATOLOGICAL/ONCOLOGICAL Hx Blood Disorders: No Hx Human Immunodeficiency Virus (HIV): No - INTEGUMENTARY Hx Dermatological Problems: No - MUSCULOSKELETAL/RHEUMATOLOGICAL Hx Falls: No - GASTROINTESTINAL Hx Gall Bladder Disease: Yes Hx Gastritis: Yes - GENITOURINARY/GYNECOLOGICAL Hx Sexually Transmitted Disorders: No - PSYCHIATRIC Hx Anxiety: Yes Hx Depression: Yes Hx Emotional Abuse: No Hx Sexual Abuse: No Hx Substance Use: No - SURGICAL HISTORY Hx Appendectomy: Yes - ANESTHESIA Hx Anesthesia: Yes Hx Anesthesia Reactions: No Hx Malignant Hyperthermia: No Meds Allergies/Adverse Reactions: Allergies Allergy/AdvReac Type Severity Reaction Status Date / Time No Known Allergies Allergy Verified 09/23/16 06:46 - Medications Medications: Current Medications Acetaminophen (Tylenol 325mg Tab) 650 mg PO Q4 PRN PRN Reason: Pain, moderate (4-7) Al Hydrox/Mg Hydrox/Simethicone (Maalox Plus 30 Ml) 30 ml PO Q4H PRN PRN Reason: Dyspepsia Last Admin: 09/23/16 17:29 Dose: 30 ml Bismuth Subsalicylate (Pepto-Bismol) 524 mg PO Q4 PRN PRN Reason: Diarrhea Clonazepam (Klonopin) 0.5 mg PO Q12 [facility] Divalproex Sodium (Depakote Dr(*Bid*)) 500 mg PO BID [facility]IAM Last Admin: 09/23/16 17:30 Dose: 500 mg Home Med (Dextromethorphan Hbr/Quinidine [Nuedexta 20-10 Mg Capsule]) 1 cap PO BID [facility] Lorazepam (Ativan) 0.5 mg PO Q6 PRN PRN Reason: Anixety/Agitation Stop: 10/07/16 12:26 Lorazepam (Ativan) 0.5 mg PO HS PRN PRN Reason: Insomnia Stop: 10/07/16 12:26 Magnesium Hydroxide (Milk Of Magnesia) 30 ml PO HS PRN PRN Reason: Constipation Quetiapine Fumarate (Seroquel) 300 mg PO HS [facility]IAM Zolpidem Tartrate (Ambien) 5 mg PO HS PRN PRN Reason: Insomnia Physical Exam - Constitutional Appears: No Acute Distress - Head Exam Head Exam: ATRAUMATIC - Eye Exam Eye Exam: absent: Scleral icterus - ENT Exam ENT Exam: Mucous Membranes Moist - Neck Exam Neck exam: Negative for: Meningismus - Respiratory Exam Respiratory Exam: absent: Rhonchi, Wheezes, Respiratory Distress - Cardiovascular Exam Cardiovascular Exam: REGULAR RHYTHM, +S1, +S2 - GI/Abdominal Exam GI & Abdominal Exam: Soft. absent: Tenderness - Rectal Exam Rectal Exam: Deferred - Back Exam Back exam: NORMAL INSPECTION - Neurological Exam Neurological exam: Alert, Oriented x3 - Psychiatric Exam Psychiatric exam: Normal Affect - Skin Skin Exam: Dry, Intact Results - Vital Signs Recent Vital Signs: Last Vital Signs Temp 98.1 F 09/23/16 16:04 Pulse 58 L 09/23/16 16:04 Resp 20 09/23/16 16:04 BP 106/59 L 09/23/16 16:04 Pulse Ox 97 09/23/16 10:17 - Labs Result Diagrams: 09/23/16 07:24 09/23/16 07:24 Labs: Laboratory Results - last 24 hr 09/23/16 09/23/16 09/23/16 09:51 09:51 11:56 POC Glucose (mg/dL) 98 Urine Color Geri Urine Clarity Slighty-cloudy Urine pH 5.0 Ur Specific Romeo 1.030 Urine Protein 100 Urine Glucose (UA) 50 Urine Ketones Trace Urine Blood Negative Urine Nitrate Negative Urine Bilirubin Negative Urine Urobilinogen 0.2-1.0 Ur Leukocyte Esterase Neg Urine RBC (Auto) 2 Urine Microscopic WBC 2 Amorphous Sediment Rare H Hyaline Casts 11-20 H Urine Opiates Screen Negative Urine Methadone Screen Negative Ur Barbiturates Screen Negative Ur Phencyclidine Scrn Negative Ur Amphetamines Screen Negative U Benzodiazepines Scrn Negative U Oth Cocaine Metabols Negative U Cannabinoids Screen Negative Assessment & Plan (1) Anxiety and depression Status: Acute Comment: psyche is managing (2) DM2 (diabetes mellitus, type 2) Status: Chronic Comment: BS controlled. Metformin 1000mg PO BID. HgA1C, BMP in am (3) Hypertension Status: Chronic Comment: BP stable. continue Lisinopril and Metoprolol (4) Parkinson disease Status: Chronic Comment: continue Carbidopa/Levodopa (5) COPD (chronic obstructive pulmonary disease) Status: Chronic Comment: asymptomatic. continue Advair
[2016-09-23] MEDS ORDERED: Naproxen 500 MG TAB PO PRN (23:10)
[2016-09-23] MEDS: Fluticasone-Salmeterol 250-50mcg Diskus IH SCH (23:47)
[2016-09-24 07:28] LABS: T4 10.7 ug/dl (5.5-11.0)
--- NOTE | 2016-09-24 08:33 | CARD ---
APPROVED REPORT EKG Measurement Heart [id number] <Conclusion> Normal sinus rhythm Normal ECG
[2016-09-24] MEDS: Divalproex 500 mg DR(BID formulation) PO SCH ×2 (08:37→16:50)
[2016-09-24] MEDS: Pantoprazole 40 mg EC Tab PO SCH (08:39)
--- NOTE | 2016-09-24 10:19 | PCM.PYCHPN ---
Psychiatric Progress Note - Psychiatric Progress Note Patient seen today, length of contact: Patient evaluated, case discussed with team, chart reviewed, 35 min Patient Chief Complaint: "I'm still anxious" Problems Identified/Issues Discussed: Patient reports that he is feeling slightly better, but continues to report feeling very anxious and depressed. No acute psychotic symptoms. He does not know which medications he takes regularly. He was encouraged to leave his room and engage in groups/therapy. Medication Change: No Medical Record Reviewed: Yes Consults ordered or reviewed: Medicine consult appreciated Mental Status Examination - Cognitive Function Orientation: Person, Place, Situation, Time Memory: Impaired Association: WNL Decription of patient's judgement and insights: Fair I/J - Mood Mood: Depressed, Anxious - Affect Affect: Other (Tearful, labile) - Speech Speech: Appropriate - Formal Thought Process Formal Thought Process: Loosening of associations Psychotic Thoughts and Behaviors: No AH/VH/paranoia - Suicidal Ideation Suicidal Ideation: No - Homicidal Ideation Homicidal Ideation: No Goal/Treatment Plan - Goal/Treatment Plan Need for Continued Stay: Remain at risks for inpatient hospitalization, Severe depression anxiety, Severe functional impairment Progress Toward Problem(s) and Goals/Treatment Plan: Schizoaffective Disorder; patient continues to report severe anxiety and depression. -Individual and group therapy -Continue Seroquel 300 mg PO HS, Continue Depakote 500 PO BID, Klonopin 0.5 mg PO Q12 hr- Unclear if patient has been compliant with medications at home -Disposition planning -VPA level 27.2 on 09/24/16 Estimated Date of D/C: 09/27/16 - Smoking Cessation Smoking Cessation Initiated: No Reason for not providing: Not indicated
[2016-09-24 14:49] LABS: FOLATE 9.3 ng/mL
[2016-09-24] MEDS: Pravastatin Sodium 40 MG TAB PO SCH (21:15)
[2016-09-24] MEDS: Insulin Lispro (humaLOG) 100 Units/ml Inj SC SCH (21:46)
[2016-09-24] MEDS: Fluticasone-Salmeterol 250-50mcg Diskus IH SCH (23:23)
--- NOTE | 2016-09-25 08:26 | PCM.PYCHPN ---
Psychiatric Progress Note - Psychiatric Progress Note Patient seen today, length of contact: Patient evaluated, case discussed with team, chart reviewed, 35 min Patient Chief Complaint: "I'm not okay" Problems Identified/Issues Discussed: Patient is very tearful and cries continually when asked how he is doing. He reports that she continues to feel depressed and anxious. No acute psychotic symptoms. He was encouraged to leave his room and engage in groups/therapy. Medication Change: No Medical Record Reviewed: Yes Mental Status Examination - Cognitive Function Orientation: Person, Place, Situation, Time Memory: Impaired Association: WNL Decription of patient's judgement and insights: Fair I/J - Mood Mood: Depressed, Anxious - Affect Affect: Other (Tearful, labile) - Speech Speech: Appropriate - Formal Thought Process Formal Thought Process: Loosening of associations Psychotic Thoughts and Behaviors: No AH/VH/paranoia - Suicidal Ideation Suicidal Ideation: No - Homicidal Ideation Homicidal Ideation: No Goal/Treatment Plan - Goal/Treatment Plan Need for Continued Stay: Remain at risks for inpatient hospitalization, Severe depression anxiety, Severe functional impairment Progress Toward Problem(s) and Goals/Treatment Plan: Schizoaffective Disorder; patient continues to report severe anxiety and depression. -Individual and group therapy -Continue Seroquel 300 mg PO HS, Continue Depakote 500 PO BID, Klonopin 0.5 mg PO Q12 hr- Unclear if patient has been compliant with medications at home -Disposition planning -Psychology consult for evaluation of possible dementia -VPA level 27.2 on 09/24/16 Estimated Date of D/C: 09/27/16
[2016-09-25] MEDS: Pantoprazole 40 mg EC Tab PO SCH (08:42)
[2016-09-25] MEDS: Divalproex 500 mg DR(BID formulation) PO SCH ×2 (08:46→16:50)
[2016-09-25] MEDS: Insulin Lispro (humaLOG) 100 Units/ml Inj SC SCH ×4 (08:47→21:08)
[2016-09-25] MEDS: Fluticasone-Salmeterol 250-50mcg Diskus IH SCH ×2 (11:30→23:00)
[2016-09-25] MEDS: Divalproex 250 mg DR(BID formulation) PO SCH (21:08)
[2016-09-25] MEDS: Pravastatin Sodium 40 MG TAB PO SCH (21:08)
[2016-09-26] MEDS: Fluticasone-Salmeterol 250-50mcg Diskus IH SCH ×2 (08:53→21:04)
[2016-09-26] MEDS: Divalproex 500 mg DR(BID formulation) PO SCH ×2 (08:55→16:28)
[2016-09-26] MEDS: Pantoprazole 40 mg EC Tab PO SCH (08:56)
[2016-09-26] MEDS: Insulin Lispro (humaLOG) 100 Units/ml Inj SC SCH ×4 (08:56→21:06)
--- NOTE | 2016-09-26 09:29 | PCM.PYCHPN ---
Psychiatric Progress Note - Psychiatric Progress Note Patient seen today, length of contact: Patient evaluated, case discussed with team, chart reviewed, 35 min Patient Chief Complaint: "I'm feeling a little better" Problems Identified/Issues Discussed: Patient reports that his mood is starting to improve, but he continues to reports depression and anxiety. He is out of his bed more and walking around the unit. No adverse effects to medications noted. NO SI/HI/AH/VH Medication Change: Yes (Increase Depakote to 500 mg PO Daily/ 750 mg PO HS) Medical Record Reviewed: Yes Mental Status Examination - Cognitive Function Orientation: Person, Place, Situation, Time Memory: Impaired Association: WNL Decription of patient's judgement and insights: Fair I/J - Mood Mood: Depressed, Anxious - Affect Affect: Other (Tearful, labile) - Speech Speech: Appropriate - Formal Thought Process Formal Thought Process: No Impairment Psychotic Thoughts and Behaviors: No AH/VH/paranoia - Suicidal Ideation Suicidal Ideation: No - Homicidal Ideation Homicidal Ideation: No Goal/Treatment Plan - Goal/Treatment Plan Need for Continued Stay: Remain at risks for inpatient hospitalization, Severe depression anxiety, Severe functional impairment Progress Toward Problem(s) and Goals/Treatment Plan: Schizoaffective Disorder; patient is starting to improve clinically, but he continues to report anxiety and depression. -Individual and group therapy -Continue Seroquel 300 mg PO HS, Klonopin 0.5 mg PO Q12 hr -Increase Depakote to 500 mg PO Daily/ 750 mg PO HS -Disposition planning -Psychology consult for evaluation of possible dementia -VPA level 27.2 on 09/24/16 Estimated Date of D/C: 09/30/16
[2016-09-26] MEDS: Divalproex 250 mg DR(BID formulation) PO SCH (16:28)
[2016-09-26] MEDS: Pravastatin Sodium 40 MG TAB PO SCH (21:05)
--- NOTE | 2016-09-27 08:45 | PCM.PYCHPN ---
Psychiatric Progress Note - Psychiatric Progress Note Patient seen today, length of contact: Patient evaluated, case discussed with team, chart reviewed, 35 min Patient Chief Complaint: "I'm feeling a little better" Problems Identified/Issues Discussed: Patient reports that his mood is continuing to improve, but he continues to reports depression and anxiety. He is out of his bed more and walking around the unit. He has been observed eating more. He continues to have difficulty sleeping at night. No adverse effects to medications noted. NO SI/HI/AH/VH Diagnostic Results: VPA 78.8 on 09/27/16 Medication Change: No Medical Record Reviewed: Yes Mental Status Examination - Cognitive Function Orientation: Person, Place, Situation, Time Memory: Impaired Association: WNL Decription of patient's judgement and insights: Fair I/J - Mood Mood: Depressed, Anxious - Affect Affect: Other (Tearful, labile) - Speech Speech: Appropriate - Formal Thought Process Formal Thought Process: No Impairment Psychotic Thoughts and Behaviors: No AH/VH/paranoia - Suicidal Ideation Suicidal Ideation: No - Homicidal Ideation Homicidal Ideation: No Goal/Treatment Plan - Goal/Treatment Plan Need for Continued Stay: Remain at risks for inpatient hospitalization, Severe depression anxiety, Severe functional impairment Progress Toward Problem(s) and Goals/Treatment Plan: Schizoaffective Disorder; patient is starting to improve clinically, but he continues to report anxiety and depression. -Individual and group therapy -Continue Seroquel 300 mg PO HS, Klonopin 0.5 mg PO Q12 hr -Increase Depakote to 500 mg PO Daily/ 750 mg PO HS; VPA 78.8 on 09/27/16 -Disposition planning -Psychology consult for evaluation of possible dementia -VPA level 27.2 on 09/24/16 Estimated Date of D/C: 09/30/16 - Smoking Cessation Smoking Cessation Initiated: No Reason for not providing: Not indicated
[2016-09-27] MEDS: Insulin Lispro (humaLOG) 100 Units/ml Inj SC SCH ×4 (09:16→21:06)
[2016-09-27] MEDS: Fluticasone-Salmeterol 250-50mcg Diskus IH SCH ×2 (09:17→21:09)
[2016-09-27] MEDS: Divalproex 500 mg DR(BID formulation) PO SCH ×2 (09:17→17:00)
[2016-09-27] MEDS: Pantoprazole 40 mg EC Tab PO SCH (09:18)
--- NOTE | 2016-09-27 11:52 | CP.PCM.CON ---
History of Present Illness - History of Present Illness History of Present Illness: Pt is a 70 year old male admitted to [facility] and referred to the jingle writer for evaluation. On the DRS, pt scored an overall score of 111. Pt's Attention skills and Conceptualization skills fell within normal limits. Pt's Construction skills, Initiation skills and Memory skills all fell in the Deficient Range. Overall 111 Attention 35 Construction 3 Conceptualization 32 Initiation 28 Memory 13 Note, memory deficits evident on evaluation. Pt spoke of living with his . Homemaker services reccomend and supervision as well with medication management. Thank you, Dr. Hartley Past Patient History - Infectious Disease Hx of Infectious Diseases: None - Tetanus Immunizations Tetanus Immunization: Unknown - Past Medical History & Family History Past Medical History?: Yes - Past Social History Smoking Status: Never Smoked Alcohol: None Drugs: Denies - CARDIAC Hx Cardiac Disorders: Yes (HTN. high cholesterol) - PULMONARY Hx Asthma: Yes Hx Chronic Obstructive Pulmonary Disease (COPD): Yes Hx Emphysema: Yes - NEUROLOGICAL Hx Parkinson's Disease: Yes Hx Seizures: Yes - HEENT Hx HEENT Problems: No - RENAL Hx Chronic Kidney Disease: No - ENDOCRINE/METABOLIC Hx Endocrine Disorders: Yes Hx Diabetes Mellitus Type 2: Yes - HEMATOLOGICAL/ONCOLOGICAL Hx Blood Disorders: No Hx Human Immunodeficiency Virus (HIV): No - INTEGUMENTARY Hx Dermatological Problems: No - MUSCULOSKELETAL/RHEUMATOLOGICAL Hx Falls: No - GASTROINTESTINAL Hx Gall Bladder Disease: Yes Hx Gastritis: Yes - GENITOURINARY/GYNECOLOGICAL Hx Sexually Transmitted Disorders: No - PSYCHIATRIC Hx Anxiety: Yes Hx Depression: Yes Hx Emotional Abuse: No Hx Sexual Abuse: No Hx Substance Use: No - SURGICAL HISTORY Hx Appendectomy: Yes - ANESTHESIA Hx Anesthesia: Yes Hx Anesthesia Reactions: No Hx Malignant Hyperthermia: No Meds Allergies/Adverse Reactions: Allergies Allergy/AdvReac Type Severity Reaction Status Date / Time No Known Allergies Allergy Verified 09/23/16 06:46 - Medications Medications: Current Medications Acetaminophen (Tylenol 325mg Tab) 650 mg PO Q4 PRN PRN Reason: Pain, moderate (4-7) Al Hydrox/Mg Hydrox/Simethicone (Maalox Plus 30 Ml) 30 ml PO Q4H PRN PRN Reason: Dyspepsia Last Admin: 09/23/16 17:29 Dose: 30 ml Aspirin (Ecotrin) 81 mg PO DAILY WILLIAM Last Admin: 07/14/17 09:16 Dose: 81 mg Bismuth Subsalicylate (Pepto-Bismol) 524 mg PO Q4 PRN PRN Reason: Diarrhea Carbidopa/Levodopa (Sinemet) 1 tab PO TID [facility] Last Admin: 09/27/16 09:18 Dose: 1 tab Clonazepam (Klonopin) 0.5 mg PO Q12 [facility] Last Admin: 09/27/16 09:15 Dose: 0.5 mg Divalproex Sodium (Depakote Dr(*Bid*)) 500 mg PO BID [facility] Last Admin: 09/27/16 09:17 Dose: 500 mg Divalproex Sodium (Depakote Dr(*Bid*)) 250 mg PO DAILY@1700 [facility] Last Admin: 09/26/16 16:28 Dose: 250 mg Gabapentin (Neurontin) 100 mg PO TID [facility] Last Admin: 09/27/16 09:30 Dose: 100 mg Home Med (Dextromethorphan Hbr/Quinidine [Nuedexta 20-10 Mg Capsule]) 1 cap PO BID [facility] Insulin Human Lispro (Humalog) 0 units SC ACHS [facility] PRN Reason: Protocol Last Admin: 09/27/16 09:16 Dose: Not Given Lisinopril (Zestril) 10 mg PO DAILY [facility] Last Admin: 09/27/16 09:21 Dose: Not Given Lorazepam (Ativan) 0.5 mg PO Q6 PRN PRN Reason: Anixety/Agitation Stop: 10/07/16 12:26 Lorazepam (Ativan) 0.5 mg PO HS PRN PRN Reason: Insomnia Stop: 10/07/16 12:26 Magnesium Hydroxide (Milk Of Magnesia) 30 ml PO HS PRN PRN Reason: Constipation Metformin HCl (Glucophage) 1,000 mg PO BID [facility] Last Admin: 09/27/16 09:16 Dose: 1,000 mg Metoprolol Tartrate (Lopressor) 50 mg PO DAILY [facility] Last Admin: 09/27/16 09:19 Dose: Not Given Naproxen (Naproxen) 500 mg PO BID PRN PRN Reason: Other Pantoprazole Sodium (Protonix Ec Tab) 40 mg PO DAILY [facility] Last Admin: 09/27/16 09:18 Dose: 40 mg Pravastatin Sodium (Pravachol) 40 mg PO HS [facility] Last Admin: 09/26/16 21:05 Dose: 40 mg Quetiapine Fumarate (Seroquel) 300 mg PO HS [facility] Last Admin: 09/26/16 21:05 Dose: 300 mg Fluticasone/Salmeterol (Advair Diskus 250/50) 1 puff IH Q12@0900,2100 [facility] Last Admin: 09/27/16 09:17 Dose: 1 puff Zolpidem Tartrate (Ambien) 5 mg PO HS PRN PRN Reason: Insomnia Results - Vital Signs Recent Vital Signs: Last Vital Signs Temp 97.7 F 09/27/16 06:00 Pulse 68 09/27/16 09:21 Resp 18 09/27/16 06:00 BP 105/63 09/27/16 09:21 Pulse Ox 97 09/23/16 10:17 - Labs Result Diagrams: 09/23/16 07:24 09/23/16 07:24 Labs: Laboratory Results - last 24 hr 09/26/16 09/26/16 09/27/16 15:24 19:41 05:30 POC Glucose (mg/dL) 101 117 H Valproic Acid 78.8 09/27/16 09/27/16 05:55 11:02 POC Glucose (mg/dL) 118 H 184 H Valproic Acid
[2016-09-27] MEDS: Pravastatin Sodium 40 MG TAB PO SCH (21:09)
--- NOTE | 2016-09-28 08:29 | PCM.PYCHPN ---
Psychiatric Progress Note - Psychiatric Progress Note Patient seen today, length of contact: Patient evaluated, case discussed with team, chart reviewed, 35 min Patient Chief Complaint: "I'm feeling a little better" Problems Identified/Issues Discussed: Patient reports that his mood is continuing to improve. He is out of his bed more and walking around the unit. He has been observed eating more. He continues to have difficulty sleeping at night. No adverse effects to medications noted. NO SI/HI/AH/VH Diagnostic Results: VPA 78.8 on 09/27/16 Medication Change: No Medical Record Reviewed: Yes Consults ordered or reviewed: Psychology Consult 09/27/16: Pt is a 70 year old male admitted to [facility] and referred to the designer writer for evaluation. On the DRS, pt scored an overall score of 111. Pt's Attention skills and Conceptualization skills fell within normal limits. Pt's Construction skills, Initiation skills and Memory skills all fell in the Deficient Range. Overall 111 Attention 35 Construction 3 Conceptualization 32 Initiation 28 Memory 13 Note, memory deficits evident on evaluation. Pt spoke of living with his . Homemaker services reccomend and supervision as well with medication management. Thank you, Dr. Hartley Mental Status Examination - Cognitive Function Orientation: Person, Place, Situation, Time Memory: Impaired Association: WNL Decription of patient's judgement and insights: Fair I/J - Mood Mood: Anxious - Affect Affect: Constricted - Speech Speech: Appropriate - Formal Thought Process Formal Thought Process: No Impairment Psychotic Thoughts and Behaviors: No AH/VH/paranoia - Suicidal Ideation Suicidal Ideation: No - Homicidal Ideation Homicidal Ideation: No Goal/Treatment Plan - Goal/Treatment Plan Need for Continued Stay: Remain at risks for inpatient hospitalization, Severe depression anxiety, Severe functional impairment Progress Toward Problem(s) and Goals/Treatment Plan: Schizoaffective Disorder; patient is starting to improve clinically, but he continues to report anxiety and depression. -Individual and group therapy -Continue Seroquel 300 mg PO HS, Klonopin 0.5 mg PO Q12 hr -Continue Depakote 00 mg PO Daily/ 750 mg PO HS; VPA 78.8 on 09/27/16 -Disposition planning -Psychology consult appreciated Estimated Date of D/C: 09/30/16
[2016-09-28] MEDS: Fluticasone-Salmeterol 250-50mcg Diskus IH SCH ×2 (09:01→21:04)
[2016-09-28] MEDS: Divalproex 500 mg DR(BID formulation) PO SCH ×2 (09:02→17:06)
[2016-09-28] MEDS: Pantoprazole 40 mg EC Tab PO SCH (09:03)
[2016-09-28] MEDS: Insulin Lispro (humaLOG) 100 Units/ml Inj SC SCH ×3 (09:04→17:04)
[2016-09-28] MEDS: Divalproex 250 mg DR(BID formulation) PO SCH ×2 (10:09→17:08)
[2016-09-28] MEDS: Pravastatin Sodium 40 MG TAB PO SCH (21:05)
[2016-09-28] MEDS ORDERED: guaiFENesin 100 mg/5 ml Syrup UD PO PRN (23:11)
--- NOTE | 2016-09-29 08:19 | PCM.PYCHPN ---
Psychiatric Progress Note - Psychiatric Progress Note Patient seen today, length of contact: Patient evaluated, case discussed with team, chart reviewed, 35 min Patient Chief Complaint: "I'm feeling better" Problems Identified/Issues Discussed: Patient reports that his mood is continuing to improve. He is out of his bed more and walking around the unit. He has been observed eating more. +Improved sleep. No adverse effects to medications noted. NO SI/HI/AH/VH Diagnostic Results: VPA 78.8 on 09/27/16 Medication Change: No Medical Record Reviewed: Yes Mental Status Examination - Cognitive Function Orientation: Person, Place, Situation, Time Memory: Impaired Association: WNL Decription of patient's judgement and insights: Fair I/J - Mood Mood: Anxious - Affect Affect: Constricted - Speech Speech: Appropriate - Formal Thought Process Formal Thought Process: No Impairment Psychotic Thoughts and Behaviors: No AH/VH/paranoia - Suicidal Ideation Suicidal Ideation: No - Homicidal Ideation Homicidal Ideation: No Goal/Treatment Plan - Goal/Treatment Plan Need for Continued Stay: Remain at risks for inpatient hospitalization, Severe depression anxiety, Severe functional impairment Progress Toward Problem(s) and Goals/Treatment Plan: Schizoaffective Disorder; patient now improving clinically. -Individual and group therapy -Continue Seroquel 300 mg PO HS, Klonopin 0.5 mg PO Q12 hr -Continue Depakote 500 mg PO Daily/ 750 mg PO HS; VPA 78.8 on 09/27/16 -Disposition planning- likely discharge to home tomorrow -Psychology consult appreciated Estimated Date of D/C: 09/30/16 - Smoking Cessation Smoking Cessation Initiated: No Reason for not providing: Not indicated
[2016-09-29] MEDS: Fluticasone-Salmeterol 250-50mcg Diskus IH SCH ×2 (09:04→21:11)
[2016-09-29] MEDS: Divalproex 500 mg DR(BID formulation) PO SCH ×2 (09:05→16:32)
[2016-09-29] MEDS: Insulin Lispro (humaLOG) 100 Units/ml Inj SC SCH ×2 (09:06→16:35)
[2016-09-29] MEDS: Pantoprazole 40 mg EC Tab PO SCH (09:09)
[2016-09-29] MEDS: Divalproex 250 mg DR(BID formulation) PO SCH (16:33)
[2016-09-29] MEDS: Pravastatin Sodium 40 MG TAB PO SCH (21:12)
[2016-09-30 05:51] VITALS: PULSE 98; RESP 18; TEMP 97.3
[2016-09-30] MEDS: Fluticasone-Salmeterol 250-50mcg Diskus IH SCH (08:35)
[2016-09-30] MEDS: Divalproex 500 mg DR(BID formulation) PO SCH (08:36)
[2016-09-30] MEDS: Pantoprazole 40 mg EC Tab PO SCH (08:37)
[2016-09-30] MEDS: Insulin Lispro (humaLOG) 100 Units/ml Inj SC SCH (08:39)
[2016-09-30 08:43] VITALS: BP 106/54
--- NOTE | 2016-09-30 08:53 | PCM.PYCHDC ---
Mental Status Examination - Mental Status Examination Orientation: Person, Place, Situation, Time Memory: Intact Mood: Neutral Affect: Broad Speech: Appropriate Attention: WNL Concentration: WNL Association: WNL Fund of Knowledge: WNL Formal Thought Process: No Impairment Description of patient's judgement and insight: Fair I/J Psychotic Thoughts and Behaviors: No AH/VH/paranoia Suicidal Ideation: No Current Homicidal Ideation?: No Discharge Summary - Discharge Note Reason for Hospitalization: HPI: 70 yo male w/ h/o schizoaffective disorder, multiple psychiatric admissions , presents acutely depressed, anxious and paranoid. Patient reports that he takes his medications regularly, but has had periods of non-compliance in the past. He reports feeling helpless/hopeless and states that he has not slept well for the past 7-8 night. +poor concentration. +appetite disturbance. No SI/HI/AH/VH. He is very tearful on interview and has difficulty answering questions because he keeps crying. Past Psych Hx: Recent admissions to [facility]- 07/05/16-07/10/16 and -08/08/16. H /o schizoaffective disorder. One suicide attempt by jumping in front of a car. Denies h/o aggressive or assaultive behavior. No legal h/o. No h/o abuse/ trauma. No Etoh or drug use. FHx: Denies family hx mental illness PMHx: ASTHMA, COPD, DM, GASTRITIS, HTN, HYPERLIPIDEMIA, PARKINSON'S DISEASE, EMPHYSEMA. Social Hx: From [place]. 3 sisters and 6 brothers. Studied up to high school. 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 Lives with . Has 3 sons. Laboratory Data: Abnormal Lab Results 09/29/16 09/30/16 15:53 05:42 POC Glucose (mg/dL) 105 151 H Consultations:: List each consultation separately and include: 1. Reason for request. 2. Findings. 3. Follow-up Consultations: Psychology Consult 09/27/16: Pt is a 70 year old male admitted to [facility] and referred to the law writer for evaluation. On the DRS, pt scored an overall score of 111. Pt's Attention skills and Conceptualization skills fell within normal limits. Pt's Construction skills, Initiation skills and Memory skills all fell in the Deficient Range. Overall 111 Attention 35 Construction 3 Conceptualization 32 Initiation 28 Memory 13 Note, memory deficits evident on evaluation. Pt spoke of living with his . Homemaker services reccomend and supervision as well with medication management. Thank you, Dr. Hartley Summary of Hospital Course include:: 1. Description of specific treatment plan utilized for patients during their course of treatmen. 2. Summarize the time- course for resolution of acute symptoms and/or regressed behaviors. 3. Describe issues identified and worked on during hospitalization. 4. Describe medication utilized. 5. Describe medical problems identified and treated. 6. Reassessment of suicide risk Summary of Hospital Course: Patient admitted to the hospital. He was stabilized on Seroquel, Depakote ( increased to 500 mg PO AM/750 mg PO HS) and Klonopin. He no longer reports depression/anxiety. He has no acute psychotic symptoms. Patient participated in individual and group therapy. - Final Diagnosis (DSM 5) Condition upon Discharge: STABLE DSM 5: Schizoaffective Disorder Disposition: HOME/ ROUTINE Follow-up Treatment Plan: Schizoaffective Disorder; patient now psychiatrically stable for discharge. -Individual and group therapy -Continue Seroquel 300 mg PO HS, Klonopin 0.5 mg PO Q12 hr -Continue Depakote 500 mg PO Daily/ 750 mg PO HS; VPA 78.8 on 09/27/16 -Discharge to home today w/ outpatient follow-up -Psychology consult appreciated Prescriptions/Medication Reconciliation: Divalproex [Depakoblaze ANDERSON(*BID*)] 250 mg PO DAILY@1700 #30 tcp - Smoking Cessation Smoking Cessation Medication prescribed: No Reason for not providing: Not indicated - Antipsychotic Medications Pt discharged on 2 or more routine antipsychotic medications: No
== END 2016-09-30 13:52 | disposition home or self-care (01) | DRG 885 ==
LOC: H.ER 06:36 → H.ERHOLD 09:32 → H.STEP 11:16
PROVIDERS: ADMIT Psychiatry & Neurology Psychiatry; ATTEND Psychiatry & Neurology Psychiatry
PROC: GZ51ZZZ Individual Psychotherapy, Behavioral (ICD-10-PCS; principal; 2016-09-23)
DX: F25.9 Schizoaffective disorder, unspecified (principal); G20 Parkinson's disease; R56.9 Unspecified convulsions; I48.91 Unspecified atrial fibrillation; E11.9 Type 2 diabetes mellitus without complications; E78.5 Hyperlipidemia, unspecified; E78.00 Pure hypercholesterolemia, unspecified; F31.9 Bipolar disorder, unspecified; F41.9 Anxiety disorder, unspecified; I10 Essential (primary) hypertension; J44.9 Chronic obstructive pulmonary disease, unspecified; Z79.51 Long term (current) use of inhaled steroids; Z79.82 Long term (current) use of aspirin; Z79.899 Other long term (current) drug therapy; Z90.49 Acquired absence of other specified parts of digestive tract; Z91.19 Patient's noncompliance with other medical treatment and regimen; K29.70 Gastritis, unspecified, without bleeding; Z79.84 Long term (current) use of oral hypoglycemic drugs; G47.9 Sleep disorder, unspecified

== ENCOUNTER 2017-07-20 08:55 | Emergency (ER) | payer MEDICAID, MEDICARE ==
[2017-07-20 08:58] VITALS: BP 149/91; PULSE 120; TEMP 98; BMI 29.2
--- NOTE | 2017-07-20 09:34 | ED PDOC ---
HPI: Neurologic - General Time Seen by Provider: 07/20/17 09:02 Chief Complaint (Nursing): Anxiety Chief Complaint (Provider): Anxiety Source: patient Exam Limitations: no limitations - History of Present Illness Associated Symptoms: denies symptoms Allergies/Adverse Reactions: Allergies No Known Allergies Allergy (Verified 09/23/16 06:46) Home Medications: Ambulatory Orders Aspirin [Ecotrin] 81 mg PO DAILY 07/03/16 Carbidopa/Levodopa [Carbidopa-Levodopa 25-100 Tab] 1 tab PO TID 07/03/16 Dextromethorphan HBr/Quinidine [Nuedexta 20-10 mg Capsule] 1 cap PO BID Divalproex [Depakote ER] 500 mg PO BID 07/03/16 Fluticasone/Salmeterol 250/50 [Advair Diskus 250/50] 1 puff IH Q12H 07/03/16 Gabapentin [Neurontin] 100 mg PO TID 07/03/16 Lisinopril [Zestril] 10 mg PO DAILY 07/03/16 MetFORMIN [glucoPHAGE] 1,000 mg PO BID 07/03/16 Metoprolol Tartrate [Lopressor] 50 mg PO DAILY 07/03/16 Pantoprazole Sodium [Protonix] 40 mg PO DAILY 07/03/16 Pravastatin Sodium [Pravachol] 40 mg PO HS 07/03/16 Quetiapine Fumarate [Seroquel] 300 mg PO HS 07/03/16 D[address]proex [Depakote DR(*BID*)] 250 mg PO DAILY@1700 #30 tcp 09/30/16 clonazePAM [Klonopin] 0.5 mg PO Q12 tab 09/30/16 Additional Complaint(s): 71 years old male presents to the ED with complaints of feeling anxious and depressed. Patient denies any suicidal or homicidal ideation. PMD: non provided Past Medical History Reviewed: Historical Data, Nursing Documentation, Vital Signs Vital Signs: Last Vital Signs Temp 98 F 07/20/17 08:57 Pulse 120 H 07/20/17 08:57 Resp BP 149/91 H 07/20/17 08:57 Pulse Ox 98 07/20/17 08:57 - Medical History PMH: Anxiety, Asthma, Atrial Fibrillation, Bipolar Disorder, COPD, Depression, Diabetes, Emphysema, Gastritis, Gall Bladder Disease, HTN, Hypercholesterolemia , Parkinson's Disease, Schizophrenia, Seizures Denies: Hepatitis, HIV, Kidney Stones, Chronic Kidney Disease, Sexually Transmitted Disease - Surgical History Surgical History: Appendectomy, Hernia Repair (ventral) - Family History Family History: States: Unknown Family Hx - Immunization History Hx Tetanus Toxoid Vaccination: No Hx Influenza Vaccination: No Hx Pneumococcal Vaccination: No - Home Medications Home Medications: Ambulatory Orders Medication Instructions Recorded Aspirin [Ecotrin] 81 mg PO DAILY 07/03/16 Carbidopa/Levodopa 1 tab PO TID 07/03/16 [Carbidopa-Levodopa 25-100 Tab] Dextromethorphan HBr/Quinidine 1 cap PO BID 07/03/16 [Nuedexta 20-10 mg Capsule] Divalproex [Depakote ER] 500 mg PO BID 07/03/16 Fluticasone/Salmeterol 250/50 1 puff IH Q12H 07/03/16 [Advair Diskus 250/50] Gabapentin [Neurontin] 100 mg PO TID 07/03/16 Lisinopril [Zestril] 10 mg PO DAILY 07/03/16 MetFORMIN [glucoPHAGE] 1,000 mg PO BID 07/03/16 Metoprolol Tartrate [Lopressor] 50 mg PO DAILY 07/03/16 Pantoprazole Sodium [Protonix] 40 mg PO DAILY 07/03/16 Pravastatin Sodium [Pravachol] 40 mg PO HS 07/03/16 Quetiapine Fumarate [Seroquel] 300 mg PO HS 07/03/16 D[address]proex [Depakote DR(*BID*)] 250 mg PO DAILY@1700 #30 tcp 09/30/16 clonazePAM [Klonopin] 0.5 mg PO Q12 tab 09/30/16 - Allergies Allergies/Adverse Reactions: Allergies Allergy/AdvReac Type Severity Reaction Status Date / Time No Known Allergies Allergy Verified 09/23/16 06:46 Review of Systems ROS Statement: Except As Marked, All Systems Reviewed And Found Negative Psych: Positive for: Anxiety, Depression. Negative for: Suicidal ideation (or homicidal) Physical Exam - Reviewed Nursing Documentation Reviewed: Yes Vital Signs Reviewed: Yes - Physical Exam Appears: Positive for: Non-toxic, No Acute Distress Head Exam: Positive for: ATRAUMATIC, NORMOCEPHALIC Skin: Positive for: Normal Color, Warm, Dry Eye Exam: Positive for: Normal appearance, EOMI, PERRL ENT: Positive for: Normal ENT Inspection Neck: Positive for: Normal, Supple Cardiovascular/Chest: Positive for: Regular Rate, Rhythm. Negative for: Murmur Respiratory: Positive for: Normal Breath Sounds. Negative for: Respiratory Distress Gastrointestinal/Abdominal: Positive for: Normal Exam Back: Positive for: Normal Inspection Extremity: Positive for: Normal ROM Neurologic/Psych: Positive for: Alert, Oriented - ECG O2 Sat by Pulse Oximetry: 98 (RA) Pulse Ox Interpretation: Normal Medical Decision Making Medical Decision Making: Scribe Attestation: Documented by Carine Melo, acting as a scribe for Yeyo Katz MD. Provider Scribe Attestation: All medical record entries made by the Scribe were at my direction and personally dictated by me. I have reviewed the chart and agree that the record accurately reflects my personal performance of the history, physical exam, medical decision making, and the department course for this patient. I have also personally directed, reviewed, and agree with the discharge instructions and disposition. Disposition - Disposition
[2017-07-20 09:37] VITALS: O2SAT 96
--- NOTE | 2017-07-20 09:40 | ED PDOC ---
HPI: Psych/Substance Abuse Time Seen by Provider: 07/20/17 09:02 Chief Complaint (Nursing): Anxiety Chief Complaint (Provider): Anxiety History Per: Patient History/Exam Limitations: no limitations Associated Symptoms: Anxiety, Depression. denies: Suicidal Thoughts, Suicidal Plan Additional Complaint(s): 71 yeas old male presents to the ED with complaints of anxiety and depression. Patient denies any suicidal or homicidal ideation. PMD: non provided Past Medical History Reviewed: Historical Data, Nursing Documentation, Vital Signs Vital Signs: Last Vital Signs Temp 98 F 07/20/17 08:57 Pulse 120 H 07/20/17 08:57 Resp BP 149/91 H 07/20/17 08:57 Pulse Ox 96 07/20/17 08:57 - Medical History PMH: Anxiety, Asthma, Atrial Fibrillation, Bipolar Disorder, COPD, Depression, Diabetes, Emphysema, Gastritis, Gall Bladder Disease, HTN, Hypercholesterolemia , Parkinson's Disease, Schizophrenia, Seizures Denies: Hepatitis, HIV, Kidney Stones, Chronic Kidney Disease, Sexually Transmitted Disease - Surgical History Surgical History: Appendectomy, Hernia Repair (ventral) - Family History Family History: States: Unknown Family Hx - Immunization History Hx Tetanus Toxoid Vaccination: No Hx Influenza Vaccination: No Hx Pneumococcal Vaccination: No - Home Medications Home Medications: Ambulatory Orders Medication Instructions Recorded Aspirin [Ecotrin] 81 mg PO DAILY 07/03/16 Carbidopa/Levodopa 1 tab PO TID 07/03/16 [Carbidopa-Levodopa 25-100 Tab] Dextromethorphan HBr/Quinidine 1 cap PO BID 07/03/16 [Nuedexta 20-10 mg Capsule] Divalproex [Depakote ER] 500 mg PO BID 07/03/16 Fluticasone/Salmeterol 250/50 1 puff IH Q12H 07/03/16 [Advair Diskus 250/50] Gabapentin [Neurontin] 100 mg PO TID 07/03/16 Lisinopril [Zestril] 10 mg PO DAILY 07/03/16 MetFORMIN [glucoPHAGE] 1,000 mg PO BID 07/03/16 Metoprolol Tartrate [Lopressor] 50 mg PO DAILY 07/03/16 Pantoprazole Sodium [Protonix] 40 mg PO DAILY 07/03/16 Pravastatin Sodium [Pravachol] 40 mg PO HS 07/03/16 Quetiapine Fumarate [Seroquel] 300 mg PO HS 07/03/16 Divalproex [Depakote DR(*BID*)] 250 mg PO DAILY@1700 #30 tcp 09/30/16 clonazePAM [Klonopin] 0.5 mg PO Q12 tab 09/30/16 - Allergies Allergies/Adverse Reactions: Allergies Allergy/AdvReac Type Severity Reaction Status Date / Time No Known Allergies Allergy Verified 09/23/16 06:46 Review of Systems ROS Statement: Except As Marked, All Systems Reviewed And Found Negative Psych: Positive for: Anxiety. Negative for: Suicidal ideation (or homicidal) Physical Exam - Reviewed Nursing Documentation Reviewed: Yes Vital Signs Reviewed: Yes - Physical Exam Appears: Positive for: Non-toxic, No Acute Distress Head Exam: Positive for: ATRAUMATIC, NORMOCEPHALIC Skin: Positive for: Normal Color, Warm, Dry Eye Exam: Positive for: Normal appearance, EOMI ENT: Positive for: Normal ENT Inspection Neck: Positive for: Normal, Supple Cardiovascular/Chest: Positive for: Regular Rate, Rhythm. Negative for: Murmur Respiratory: Positive for: Normal Breath Sounds. Negative for: Respiratory Distress Gastrointestinal/Abdominal: Positive for: Normal Exam Back: Positive for: Normal Inspection Extremity: Positive for: Normal ROM Neurologic/Psych: Positive for: Alert, Oriented - ECG O2 Sat by Pulse Oximetry: 96 (RA) Pulse Ox Interpretation: Normal Medical Decision Making Medical Decision Making: Scribe Attestation: Documented by Carine Melo, acting as a scribe for Yeyo Katz MD Provider Scribe Attestation: All medical record entries made by the Scribe were at my direction and personally dictated by me. I have reviewed the chart and agree that the record accurately reflects my personal performance of the history, physical exam, medical decision making, and the department course for this patient. I have also personally directed, reviewed, and agree with the discharge instructions and disposition. Disposition - Clinical Impression Clinical Impression: Anxiety attack - Patient ED Disposition Is Patient to be Admitted: No Counseled Patient/Family Regarding: Diagnosis, Need For Followup - Disposition Referrals: [facility] [Outside] Disposition: Routine/Home Disposition Time: 09:58 Condition: FAIR Instructions: Anxiety, Adult (DC) Forms: [employer] (Greenlandic) Print Language: PASHTO
== END 2017-07-20 10:12 | disposition home or self-care (01) ==
LOC: H.ER 08:55
DX: F41.0 Panic disorder [episodic paroxysmal anxiety] (principal); F32.9 Major depressive disorder, single episode, unspecified; E11.9 Type 2 diabetes mellitus without complications; E78.00 Pure hypercholesterolemia, unspecified; F20.9 Schizophrenia, unspecified; F31.9 Bipolar disorder, unspecified; G20 Parkinson's disease; I10 Essential (primary) hypertension; I48.91 Unspecified atrial fibrillation; J44.9 Chronic obstructive pulmonary disease, unspecified; Z79.82 Long term (current) use of aspirin; Z79.84 Long term (current) use of oral hypoglycemic drugs

== ENCOUNTER 2017-08-24 13:26 | Emergency (ER) | payer MEDICAID, MEDICARE ==
[2017-08-24 13:26] VITALS: BMI 29.2
[2017-08-24 13:33] VITALS: BP 147/78; RESP 16; TEMP 98.8; O2SAT 99
--- NOTE | 2017-08-24 13:46 | ED PDOC ---
HPI: Psych/Substance Abuse Time Seen by Provider: 08/24/17 13:44 Chief Complaint (Nursing): Psychiatric Evaluation Chief Complaint (Provider): crisis eval History Per: Patient Additional Complaint(s): 71-year-old male with history of anxiety and depression presents to emergency department for evaluation of acute panic attack started earlier today. Patient is screaming and anxious upon arrival. He states he did not take his usual psychiatric medications today at home. He denies suicidal or homicidal ideation. Patient denies chest pain or SOB, he states he feels shaky and nervous. Past Medical History Reviewed: Historical Data, Nursing Documentation, Vital Signs Vital Signs: Last Vital Signs Temp 98.8 F 08/24/17 13:30 Pulse 134 H 08/24/17 13:30 Resp 16 08/24/17 13:30 BP 147/78 08/24/17 13:30 Pulse Ox 99 08/24/17 13:30 - Medical History PMH: Anxiety, Asthma, Atrial Fibrillation, Bipolar Disorder, COPD, Depression, Diabetes, Emphysema, Gastritis, Gall Bladder Disease, HTN, Hypercholesterolemia , Parkinson's Disease, Schizophrenia, Seizures - Surgical History Surgical History: Appendectomy, Hernia Repair (ventral) - Family History Family History: States: No Known Family Hx - Living Arrangements Living Arrangements: With Family - Social History Current smoker - smoking cessation education provided: No Alcohol: None Drugs: Denies - Home Medications Home Medications: Ambulatory Orders Medication Instructions Recorded Aspirin [Ecotrin] 81 mg PO DAILY 07/03/16 Carbidopa/Levodopa 1 tab PO TID 07/03/16 [Carbidopa-Levodopa 25-100 Tab] Dextromethorphan HBr/Quinidine 1 cap PO BID 07/03/16 [Nuedexta 20-10 mg Capsule] Divalproex [Depakote ER] 500 mg PO BID 07/03/16 Fluticasone/Salmeterol 250/50 1 puff IH Q12H 07/03/16 [Advair Diskus 250/50] Gabapentin [Neurontin] 100 mg PO TID 07/03/16 Lisinopril [Zestril] 10 mg PO DAILY 07/03/16 MetFORMIN [glucoPHAGE] 1,000 mg PO BID 07/03/16 Metoprolol Tartrate [Lopressor] 50 mg PO DAILY 07/03/16 Pantoprazole Sodium [Protonix] 40 mg PO DAILY 07/03/16 Pravastatin Sodium [Pravachol] 40 mg PO HS 07/03/16 Quetiapine Fumarate [Seroquel] 300 mg PO HS 07/03/16 Divalproex [Depakote DR(*BID*)] 250 mg PO DAILY@1700 #30 tcp 09/30/16 clonazePAM [Klonopin] 0.5 mg PO Q12 tab 09/30/16 - Allergies Allergies/Adverse Reactions: Allergies Allergy/AdvReac Type Severity Reaction Status Date / Time No Known Allergies Allergy Verified 08/24/17 13:29 Review of Systems ROS Statement: Except As Marked, All Systems Reviewed And Found Negative Constitutional: Negative for: Fever Cardiovascular: Negative for: Chest Pain Respiratory: Negative for: Shortness of Breath, SOB with Exertion Psych: Positive for: Anxiety (acute panic attack), Other (denies suicidal or homicidal ideation ) Physical Exam - Reviewed Nursing Documentation Reviewed: Yes Vital Signs Reviewed: Yes - Physical Exam Appears: Positive for: Well, Non-toxic, No Acute Distress Skin: Positive for: Normal Color. Negative for: Rash Eye Exam: Positive for: Normal appearance Cardiovascular/Chest: Positive for: Regular Rate, Rhythm Respiratory: Positive for: Normal Breath Sounds Extremity: Positive for: Normal ROM Neurologic/Psych: Positive for: Alert, Oriented, Mood/Affect (acutely anxious) - ECG O2 Sat by Pulse Oximetry: 99 Pulse Ox Interpretation: Normal Medical Decision Making Medical Decision Makin71 y/o male with acute panic attack, has history of same. Patient is acutely anxious upon arrival, he is screaming and throwing himself on the ground. Guillermina, coating line worker, saw patient immediately upon arrival. Patient is well known to psychiatric department and saw his psychiatrist Dr. South on Friday for medication refill. Patient admits that he did not take his usual psychiatric meds this morning. He was medicated with 1 mg oral Ativan upon arrival. Patient was observed in ED for 2 hours. His condition remained stable throughout his stay. Patient feel much better after meds given in ED. Repeat vitals signs improved. As per crisis counselor and psychiatrist water commissioner, Dr. Thomas, patient does not meet criteria for admission and is stable for discharge. Disposition - Clinical Impression Clinical Impression: Anxiety - Patient ED Disposition Is Patient to be Admitted: No Counseled Patient/Family Regarding: Need For Followup - Disposition Referrals: Therese South MD [Staff Provider] - Disposition: Routine/Home Disposition Time: 15:17 Condition: STABLE Additional Instructions: Follow up as directed. Instructions: Anxiety, Adult (DC) Forms: [employer] (Pashto)
[2017-08-24 15:50] VITALS: PULSE 97
== END 2017-08-24 15:20 | disposition home or self-care (01) ==
LOC: H.ER 13:26
DX: F41.9 Anxiety disorder, unspecified (principal); E11.9 Type 2 diabetes mellitus without complications; E78.00 Pure hypercholesterolemia, unspecified; Z86.59 Personal history of other mental and behavioral disorders; F41.0 Panic disorder [episodic paroxysmal anxiety]; G20 Parkinson's disease; I10 Essential (primary) hypertension; J44.9 Chronic obstructive pulmonary disease, unspecified; Z79.82 Long term (current) use of aspirin; Z79.84 Long term (current) use of oral hypoglycemic drugs

== ENCOUNTER 2017-10-14 10:08 | Emergency (ER) | payer MEDICAID, MEDICARE ==
[2017-10-14 10:08] VITALS: BMI 29.2
[2017-10-14 10:21] VITALS: TEMP 97.9
--- NOTE | 2017-10-14 11:40 | ED PDOC ---
HPI: Psych/Substance Abuse Time Seen by Provider: 10/14/17 11:20 Chief Complaint (Nursing): Anxiety Chief Complaint (Provider): anxiety History Per: Patient Additional Complaint(s): 72 year old male presents to ED with increased anxiety over the past 2 days. Patient is seen at [facility] and states he has been compliant with all psychiatric meds. Patient denies any chest pain, shortness of breath or dyspnea on exertion. Patient denies any alcohol or drug use. No suicidal or homicidal ideation at this time. Past Medical History Reviewed: Historical Data, Nursing Documentation, Vital Signs Vital Signs: Last Vital Signs Temp 97.9 F 10/14/17 10:21 Pulse 98 H 10/14/17 10:21 Resp 17 10/14/17 10:21 BP 142/96 H 10/14/17 10:21 Pulse Ox 99 10/14/17 10:21 - Medical History PMH: Anxiety, Asthma, Atrial Fibrillation, Bipolar Disorder, COPD, Depression, Diabetes, Emphysema, Gastritis, Gall Bladder Disease, HTN, Hypercholesterolemia , Parkinson's Disease, Schizophrenia, Seizures - Surgical History Surgical History: Appendectomy, Hernia Repair (ventral) - Family History Family History: States: No Known Family Hx - Living Arrangements Living Arrangements: With Family - Social History Current smoker - smoking cessation education provided: No Alcohol: None Drugs: Denies - Home Medications Home Medications: Ambulatory Orders Medication Instructions Recorded Aspirin [Ecotrin] 81 mg PO DAILY 07/03/16 Carbidopa/Levodopa 1 tab PO TID 07/03/16 [Carbidopa-Levodopa 25-100 Tab] Dextromethorphan HBr/Quinidine 1 cap PO BID 07/03/16 [Nuedexta 20-10 mg Capsule] Divalproex [Depakote ER] 500 mg PO BID 07/03/16 Fluticasone/Salmeterol 250/50 1 puff IH Q12H 07/03/16 [Advair Diskus 250/50] Gabapentin [Neurontin] 100 mg PO TID 07/03/16 Lisinopril [Zestril] 10 mg PO DAILY 07/03/16 MetFORMIN [glucoPHAGE] 1,000 mg PO BID 07/03/16 Metoprolol Tartrate [Lopressor] 50 mg PO DAILY 07/03/16 Pantoprazole Sodium [Protonix] 40 mg PO DAILY 07/03/16 Pravastatin Sodium [Pravachol] 40 mg PO HS 07/03/16 Quetiapine Fumarate [Seroquel] 300 mg PO HS 07/03/16 Divalproex [Depakote DR(*BID*)] 250 mg PO DAILY@1700 #30 tcp 09/30/16 clonazePAM [Klonopin] 0.5 mg PO Q12 tab 09/30/16 - Allergies Allergies/Adverse Reactions: Allergies Allergy/AdvReac Type Severity Reaction Status Date / Time No Known Allergies Allergy Verified 08/24/17 13:29 Review of Systems ROS Statement: Except As Marked, All Systems Reviewed And Found Negative Constitutional: Negative for: Fever Cardiovascular: Negative for: Chest Pain Respiratory: Negative for: Cough Gastrointestinal: Negative for: Nausea, Vomiting Psych: Positive for: Anxiety. Negative for: Suicidal ideation Physical Exam - Reviewed Nursing Documentation Reviewed: Yes Vital Signs Reviewed: Yes - Physical Exam Appears: Positive for: Well, Non-toxic, No Acute Distress Skin: Positive for: Normal Color. Negative for: Rash Eye Exam: Positive for: Normal appearance Cardiovascular/Chest: Positive for: Regular Rate, Rhythm Respiratory: Positive for: Normal Breath Sounds Neurologic/Psych: Positive for: Alert, Oriented, Mood/Affect (acutely anxious) - ECG O2 Sat by Pulse Oximetry: 99 Pulse Ox Interpretation: Normal Medical Decision Making Medical Decision Makin72 year old with anxiety Plan: 1 mg IM ativan Crisis eval As per crisis counselor and psychiatrist financial solutions advisor, Dr. Thomas patient does not meet criteria for admission and is stable for discharge. Patient feels better after Ativan dose was given. He was advised to follow-up with outpatient [facility]. Disposition - Clinical Impression Clinical Impression: Anxiety - Patient ED Disposition Is Patient to be Admitted: No Counseled Patient/Family Regarding: Diagnosis, Need For Followup - Disposition [facility]errals[facility] Disposition: Routine/Home Disposition Time: 13:09 Condition: STABLE Additional Instructions: Follow-up as directed. Instructions: Anxiety, Adult (DC) Forms: [employer] (Dutch) Print Language: GAMBIAN
[2017-10-14 14:16] VITALS: BP 136/84; PULSE 72; RESP 18; O2SAT 100
== END 2017-10-14 13:15 | disposition home or self-care (01) ==
LOC: H.ER 10:08
DX: F41.9 Anxiety disorder, unspecified (principal); E11.9 Type 2 diabetes mellitus without complications; E78.00 Pure hypercholesterolemia, unspecified; Z86.59 Personal history of other mental and behavioral disorders; G20 Parkinson's disease; I10 Essential (primary) hypertension; J44.9 Chronic obstructive pulmonary disease, unspecified; Z79.82 Long term (current) use of aspirin; Z79.84 Long term (current) use of oral hypoglycemic drugs
CPT/HCPCS: 96372; 99282; J2060

== ENCOUNTER 2017-12-21 04:12 | Emergency (ER) | payer MEDICAID, MEDICARE ==
[2017-12-21 04:13] VITALS: BMI 29.2
[2017-12-21 04:33] VITALS: RESP 18
--- NOTE | 2017-12-21 05:53 | ED PDOC ---
HPI: General Adult Chief Complaint (Provider): Chest and back pain when coughing History Per: Patient History/Exam Limitations: no limitations Onset/Duration Of Symptoms: Days Have you had recent travel within the past 21 days to any of the following countries: [place], [place], [place] or [place]?: No Additional Complaint(s): 72 yo male with HTN, DM and anxiety presents for anxiety. Pt states he took a walk to alleviate his anxiety however it did not help and he called 911. (EMS reports Pt states he has also been having chest pain when he is coughing. Pt states he has been coughing x 2 days. No phlegm, no fever/chills. <Ashlyn Alatorre - Last Filed: 12/21/17 05:47> <Armen Liang - Last Filed: 12/21/17 07:14> Time Seen by Provider: 12/21/17 04:27 Chief Complaint (Nursing): Psychiatric Evaluation Past Medical History Reviewed: Historical Data, Nursing Documentation, Vital Signs Vital Signs: Last Vital Signs Temp 98.2 F 12/21/17 04:23 Pulse 120 H 12/21/17 04:23 Resp 18 12/21/17 04:23 BP 122/101 H 12/21/17 04:23 Pulse Ox 96 12/21/17 04:23 - Medical History PMH: Anxiety, Asthma, Atrial Fibrillation, Bipolar Disorder, COPD, Depression, Diabetes, Emphysema, Gastritis, Gall Bladder Disease, HTN, Hypercholesterolemia, Parkinson's Disease, Schizophrenia, Seizures Denies: Hepatitis, HIV, Kidney Stones, Chronic Kidney Disease, Sexually Transmitted Disease - Surgical History Surgical History: Appendectomy, Hernia Repair (ventral) - Family History Family History: States: Unknown Family Hx - Living Arrangements Living Arrangements: With Family - Social History Current smoker - smoking cessation education provided: No - Immunization History Hx Tetanus Toxoid Vaccination: No Hx Influenza Vaccination: No Hx Pneumococcal Vaccination: No <Ashlyn Alatorre - Last Filed: 12/21/17 05:47> Vital Signs: Last Vital Signs Temp 98.2 F 12/21/17 04:23 Pulse 120 H 12/21/17 04:23 Resp 18 12/21/17 04:23 BP 122/101 H 12/21/17 04:23 Pulse Ox 96 12/21/17 05:54 <Armen Liang - Last Filed: 12/21/17 07:14> - Home Medications Home Medications: Ambulatory Orders Medication Instructions Recorded Aspirin [Ecotrin] 81 mg PO DAILY 07/03/16 Carbidopa/Levodopa 1 tab PO TID 07/03/16 [Carbidopa-Levodopa 25-100 Tab] Dextromethorphan HBr/Quinidine 1 cap PO BID 07/03/16 [Nuedexta 20-10 mg Capsule] Divalproex [Depakote ER] 500 mg PO BID 07/03/16 Fluticasone/Salmeterol 250/50 1 puff IH Q12H 07/03/16 [Advair Diskus 250/50] Gabapentin [Neurontin] 100 mg PO TID 07/03/16 Lisinopril [Zestril] 10 mg PO DAILY 07/03/16 MetFORMIN [glucoPHAGE] 1,000 mg PO BID 07/03/16 Metoprolol Tartrate [Lopressor] 50 mg PO DAILY 07/03/16 Pantoprazole Sodium [Protonix] 40 mg PO DAILY 07/03/16 Pravastatin Sodium [Pravachol] 40 mg PO HS 07/03/16 Quetiapine Fumarate [Seroquel] 300 mg PO HS 07/03/16 Divalproex [Depakote DR(*BID*)] 250 mg PO DAILY@1700 #30 tcp 09/30/16 clonazePAM [Klonopin] 0.5 mg PO Q12 tab 09/30/16 - Allergies Allergies/Adverse Reactions: Allergies Allergy/AdvReac Type Severity Reaction Status Date / Time No Known Allergies Allergy Verified 12/21/17 04:22 Review of Systems ROS Statement: Except As Marked, All Systems Reviewed And Found Negative Constitutional: Negative for: Fever, Chills Cardiovascular: Positive for: Chest Pain. Negative for: Palpitations Respiratory: Positive for: Cough. Negative for: Shortness of Breath, SOB with Exertion Psych: Positive for: Anxiety <Ashlyn Alatorre - Last Filed: 12/21/17 05:47> Physical Exam - Reviewed Nursing Documentation Reviewed: Yes Vital Signs Reviewed: Yes - Physical Exam Appears: Positive for: Well, Non-toxic, No Acute Distress Head Exam: Positive for: ATRAUMATIC, NORMAL INSPECTION, NORMOCEPHALIC Skin: Positive for: Normal Color, Warm, DRY Eye Exam: Positive for: Normal appearance ENT: Positive for: Normal ENT Inspection Neck: Positive for: Normal, Painless ROM Cardiovascular/Chest: Positive for: Regular Rate, Rhythm Respiratory: Positive for: Normal Breath Sounds. Negative for: Accessory Muscle Use, Respiratory Distress Back: Positive for: Normal Inspection Extremity: Positive for: Normal ROM Neurologic/Psych: Positive for: Alert, Oriented, Gait <Ashlyn Alatorre - Last Filed: 12/21/17 05:47> - ECG O2 Sat by Pulse Oximetry: 96 <Ashlyn Alatorre - Last Filed: 12/21/17 05:47> Medical Decision Making Medical Decision Making: Continued care by Dr. Liang. <Ashlyn Alatorre - Last Filed: 12/21/17 05:47> Medical Decision Makin Patient endorsed to Dr. Steward, pending workup and crisis evaluation. <Armen Liang - Last Filed: 12/21/17 07:14> Disposition - Patient ED Disposition Is Patient to be Admitted: Transfer of Care - Disposition Disposition: Transfer of Care Disposition Time: 06:00 <Ashlyn Alatorre - Last Filed: 12/21/17 05:47> <Armen Liang - Last Filed: 12/21/17 07:14> - Clinical Impression Clinical Impression: Anxiety, Cough - Disposition Condition: STABLE Forms: [employer] (Panamanian)
[2017-12-21 07:27] LABS: BASO % 0.5 % (0.0-2.0); EOS # 0.5 K/uL (0.0-0.7); EOS % 6.8 % (0.0-4.0); LYMPH # 1.3 K/uL (1.0-4.3); LYMPH % 18.8 % (20.0-40.0); MEAN CELL VOLUME 87.5 fl (80.0-94.0); MEAN CORPUSCULAR HEMOGLOBIN 29.2 pg (27.0-31.0); MEAN CORPUSCULAR HGB CONC 33.4 g/dL (33.0-37.0); MEAN PLATELET VOLUME 8.2 fl (7.2-11.7); MONO # 1.1 K/uL (0.0-0.8); MONO % 15.7 % (0.0-10.0); NEUT # 4.1 K/uL (1.8-7.0); NEUT % 58.2 % (50.0-75.0); NRBC % 0.1 % (0.0-0.0); RBC 4.11 Mil/uL (4.40-5.90); RED CELL DISTRIBUTION WIDTH 17.5 % (11.5-14.5)
[2017-12-21 07:36] LABS: SQUAMOUS EPITHIAL 1 /hpf (0-5); URINE BACTERIA RARE (<OCC); URINE BILIRUBIN NEGATIVE (NEGATIVE); URINE BLOOD NEGATIVE (NEGATIVE); URINE CLARITY SLIGHTY-CLOUDY (Clear); URINE COLOR YELLOW (YELLOW); URINE GLUCOSE (UA) NEG (Normal); URINE LEUKOCYTE ESTERASE NEG Leu/uL (Negative); URINE PROTEIN 30 mg/dL (NEGATIVE); URINE UROBILINOGEN 0.2-1.0 mg/dL (0.2-1.0)
[2017-12-21 07:44] LABS: ALB/GLOB RATIO 1.1 (1.0-2.1); ALBUMIN 3.7 g/dL (3.5-5.0); ALT/SGPT 21 U/L (21-72); AST/SGOT 24 U/L (17-59); BLOOD UREA NITROGEN 22 mg/dl (9-20); CALCIUM 9.1 mg/dL (8.4-10.2); GFR NON-AFRICAN AMERICAN > 60
[2017-12-21 07:53] LABS: BARBITURATES, UR NEGATIVE (NEGATIVE); BENZODIAZEPINES, UR NEGATIVE (NEGATIVE); OPIATES, UR NEGATIVE (NEGATIVE); PHENCYCLIDINE, UR NEGATIVE (NEGATIVE)
--- NOTE | 2017-12-21 07:53 | CARD ---
APPROVED REPORT Date of service: 12/21/2017 EKG Measurement Heart [id number] <Conclusion> Sinus rhythm with premature atrial complexes Otherwise normal ECG
--- NOTE | 2017-12-21 08:15 | RAD ---
Date of service: 12/21/2017 HISTORY: chest pain, cough COMPARISON: 09/23/2016 TECHNIQUE: Chest PA and lateral FINDINGS: LUNGS: No active pulmonary disease. PLEURA: No significant pleural effusion identified. No pneumothorax apparent. CARDIOVASCULAR: Normal. OSSEOUS STRUCTURES: Degenerative changes are seen in the spine. No acute fracture is noted. Chronic compression deformities noted in the lower thoracic spine. VISUALIZED UPPER ABDOMEN: Normal. OTHER FINDINGS: None. IMPRESSION: No active disease. No interval change.
--- NOTE | 2017-12-21 10:29 | ED PDOC ---
- Laboratory Results Result Diagrams: 12/21/17 06:04 12/21/17 06:04 - ECG O2 Sat by Pulse Oximetry: 96 Disposition - Clinical Impression Clinical Impression: Anxiety, Cough - POA Present On Arrival: None - Disposition Disposition: Routine/Home Disposition Time: 10:27 Condition: FAIR Prescriptions: Albuterol HFA [Ventolin HFA 90 mcg/actuation (8 g)] 2 puff IH Q4H #1 puff Instructions: Anxiety, Adult (DC) Forms: [employer] ([place]an)
[2017-12-21 10:33] VITALS: BP 112/88; PULSE 96; TEMP 97.8; O2SAT 97
== END 2017-12-21 10:36 | disposition home or self-care (01) ==
LOC: H.ER 04:12
DX: F41.9 Anxiety disorder, unspecified (principal); R05 Cough; Z00.8 Encounter for other general examination; E11.9 Type 2 diabetes mellitus without complications; Z86.59 Personal history of other mental and behavioral disorders; G20 Parkinson's disease; I10 Essential (primary) hypertension; Z79.82 Long term (current) use of aspirin; J44.9 Chronic obstructive pulmonary disease, unspecified
CPT/HCPCS: 71046; 80053; 81003; 82948; 84484; 85025; 93005; 99283; G0480

== ENCOUNTER 2017-12-22 05:10 | Emergency (ER) | payer MEDICARE ==
[2017-12-22 05:10] VITALS: BMI 29.2
[2017-12-22 05:27] VITALS: RESP 18
[2017-12-22] MEDS ORDERED: Promethazine 6.25 MG/5 ML CUP PO STA (05:45)
--- NOTE | 2017-12-22 06:44 | ED PDOC ---
HPI: Psych/Substance Abuse Time Seen by Provider: 12/22/17 05:25 Chief Complaint (Nursing): Psychiatric Evaluation Chief Complaint (Provider): Psychiatric Evaluation History Per: Patient History/Exam Limitations: no limitations Current Symptoms Are (Timing): Still Present Additional Complaint(s): 72 year old male presents to the ED via EMS with anxiety and depression because his son is in longterm. Patient is also complaining of a cough. Denies suicidal and homicidal ideation. PMD: Dr. Frankel Past Medical History Reviewed: Historical Data, Nursing Documentation, Vital Signs Vital Signs: Last Vital Signs Temp 98.0 F 12/22/17 05:20 Pulse 129 H 12/22/17 05:20 Resp 18 12/22/17 05:20 BP 143/68 12/22/17 05:20 Pulse Ox 98 12/22/17 05:20 - Medical History PMH: Anxiety, Asthma, Atrial Fibrillation, Bipolar Disorder, COPD, Depression, Diabetes, Emphysema, Gastritis, Gall Bladder Disease, HTN, Hypercholesterolemia, Parkinson's Disease, Schizophrenia, Seizures Denies: Hepatitis, HIV, Kidney Stones, Chronic Kidney Disease, Sexually Transmitted Disease - Surgical History Surgical History: Appendectomy, Hernia Repair (ventral) - Family History Family History: States: Unknown Family Hx - Social History Alcohol: None Drugs: Denies - Immunization History Hx Tetanus Toxoid Vaccination: No Hx Influenza Vaccination: No Hx Pneumococcal Vaccination: No - Home Medications Home Medications: Ambulatory Orders Medication Instructions Recorded RX: Aspirin [Ecotrin] 81 mg PO DAILY 07/03/16 RX: Carbidopa/Levodopa 1 tab PO TID 07/03/16 [Carbidopa-Levodopa 25-100 Tab] RX: Dextromethorphan HBr/Quinidine 1 cap PO BID 07/03/16 [Nuedexta 20-10 mg Capsule] RX: Divalproex [Depakote ER] 500 mg PO BID 07/03/16 RX: Fluticasone/Salmeterol 250/50 1 puff IH Q12H 07/03/16 [Advair Diskus 250/50] RX: Gabapentin [Neurontin] 100 mg PO TID 07/03/16 RX: Lisinopril [Zestril] 10 mg PO DAILY 07/03/16 RX: MetFORMIN [glucoPHAGE] 1,000 mg PO BID 07/03/16 RX: Metoprolol Tartrate [Lopressor] 50 mg PO DAILY 07/03/16 RX: Pantoprazole Sodium [Protonix] 40 mg PO DAILY 07/03/16 RX: Pravastatin Sodium [Pravachol] 40 mg PO HS 07/03/16 RX: Quetiapine Fumarate [Seroquel] 300 mg PO HS 07/03/16 RX: Divalproex [Depakote DR(*BID*)] 250 mg PO DAILY@1700 #30 tcp 09/30/16 RX: clonazePAM [Klonopin] 0.5 mg PO Q12 tab 09/30/16 RX: Albuterol HFA [Ventolin HFA 90 2 puff IH Q4H #1 puff 12/21/17 mcg/actuation (8 g)] - Allergies Allergies/Adverse Reactions: Allergies Allergy/AdvReac Type Severity Reaction Status Date / Time No Known Allergies Allergy Verified 12/21/17 04:22 Review of Systems ROS Statement: Except As Marked, All Systems Reviewed And Found Negative Respiratory: Positive for: Cough Psych: Positive for: Anxiety, Depression. Negative for: Suicidal ideation (or homicidal ideation) Physical Exam - Reviewed Nursing Documentation Reviewed: Yes Vital Signs Reviewed: Yes - Physical Exam Appears: Positive for: Non-toxic, No Acute Distress Head Exam: Positive for: ATRAUMATIC, NORMOCEPHALIC Skin: Positive for: Normal Color, Warm, Dry Eye Exam: Positive for: Normal appearance Neck: Positive for: Normal, Painless ROM Cardiovascular/Chest: Positive for: Regular Rate, Rhythm. Negative for: Murmur Respiratory: Positive for: Normal Breath Sounds. Negative for: Wheezing, Respiratory Distress Extremity: Positive for: Normal ROM Neurologic/Psych: Positive for: Alert, Oriented, Other (Anxious). Negative for: Motor/Sensory Deficits - ECG O2 Sat by Pulse Oximetry: 98 (RA) Pulse Ox Interpretation: Normal Medical Decision Making Medical Decision Making: Initial Impression: Anxiety and depression Initial Plan: --Crisis evaluation --Ativan 2mg IM --Promethazine 12.5mg PO 07:[address] Goodwin. Pending reevaluation and workup. ------- Scribe Attestation: Documented by Gregorio Anders acting as a scribe for Armen Liang MD. Provider Scribe Attestation: All medical record entries made by the Scribe were at my direction and personally dictated by me. I have reviewed the chart and agree that the record accurately reflects my personal performance of the history, physical exam, medical decision making, and the department course for this patient. I have also personally directed, reviewed, and agree with the discharge instructions and disposition. Disposition - Clinical Impression Clinical Impression: Depression - Patient ED Disposition Is Patient to be Admitted: Transfer of Care - Disposition Referrals: Therese South MD [Staff Provider] - Disposition: Transfer of Care Disposition Time: 07:00 Condition: STABLE Instructions: Depression Forms: [employer] (Niuean) Print Language: DIVEHI Patient Signed Over To: Rama Goodwin Handoff Comments: pending re-eval and crisis eval
--- NOTE | 2017-12-22 07:23 | ED PDOC ---
- ECG O2 Sat by Pulse Oximetry: 98 (RA) Pulse Ox Interpretation: Normal Medical Decision Making Medical Decision Makin:[address] Liang, pending reevaluation and workup. Scribe Attestation: Documented by Carine Melo, acting as a scribe for Rama Goodwin MD. Provider Scribe Attestation: All medical record entries made by the Scribe were at my direction and personally dictated by me. I have reviewed the chart and agree that the record accurately reflects my personal performance of the history, physical exam, medical decision making, and the department course for this patient. I have also personally directed, reviewed, and agree with the discharge instructions and disposition. Disposition - Disposition Forms: [employer] (Upper Sorbian)
[2017-12-22 10:38] VITALS: BP 150/82; PULSE 94; TEMP 98.4
[2017-12-29 04:02] VITALS: O2SAT 98
== END 2017-12-22 10:05 | disposition home or self-care (01) ==
LOC: H.ER 05:10
DX: F32.9 Major depressive disorder, single episode, unspecified (principal)
CPT/HCPCS: 96372; 99283; J2060

== ENCOUNTER 2018-01-25 01:54 | Emergency (ER) | payer MEDICAID, MEDICARE ==
[2018-01-25 01:56] VITALS: BMI 29.2
[2018-01-25] MEDS ORDERED: Sodium Chloride 0.9% 1,000 ML IV STA (02:38)
[2018-01-25] MEDS ORDERED: Iohexol 240 (50 ml) PO STA (02:39)
--- NOTE | 2018-01-25 02:42 | ED PDOC ---
HPI: Abdomen Chief Complaint (Provider): abdominal pain History Per: Patient (72 y/o male here with RLQ abd pain noted today. Denies any fever/chills/nausea/vomiting/diarrhea. Patient has h/o appendectomy/hernia repair. denies any dysuria/hematuria/fever.) <Jessica Montoya - Last Filed: 01/25/18 02:39> <Armen Liang - Last Filed: 01/25/18 06:54> Time Seen by Provider: 01/25/18 02:39 Chief Complaint (Nursing): Abdominal Pain Past Medical History Reviewed: Historical Data, Nursing Documentation, Vital Signs Vital Signs: Last Vital Signs Temp 97.7 F 01/25/18 02:30 Pulse 86 01/25/18 02:30 Resp 20 01/25/18 02:30 BP 113/66 01/25/18 02:30 Pulse Ox 96 01/25/18 02:30 - Medical History PMH: Anxiety, Asthma, Atrial Fibrillation, Bipolar Disorder, COPD, Depression, Diabetes, Emphysema, Gastritis, Gall Bladder Disease, HTN, Hypercholesterolemia, Parkinson's Disease, Schizophrenia, Seizures Denies: Hepatitis, HIV, Kidney Stones, Chronic Kidney Disease, Sexually Transmitted Disease - Surgical History Surgical History: Appendectomy, Hernia Repair (ventral) - Family History Family History: States: Unknown Family Hx - Immunization History Hx Tetanus Toxoid Vaccination: No Hx Influenza Vaccination: No Hx Pneumococcal Vaccination: No <Jessica Montoya - Last Filed: 01/25/18 02:39> Vital Signs: Last Vital Signs Temp 97.7 F 01/25/18 02:30 Pulse 86 01/25/18 02:30 Resp 20 01/25/18 02:30 BP 113/66 01/25/18 02:30 Pulse Ox 96 01/25/18 02:43 <Armen Liang - Last Filed: 01/25/18 06:54> - Home Medications Home Medications: Ambulatory Orders Medication Instructions Recorded Aspirin [Ecotrin] 81 mg PO DAILY 07/03/16 Carbidopa/Levodopa 1 tab PO TID 07/03/16 [Carbidopa-Levodopa 25-100 Tab] Dextromethorphan HBr/Quinidine 1 cap PO BID 07/03/16 [Nuedexta 20-10 mg Capsule] Divalproex [Depakote ER] 500 mg PO BID 07/03/16 Fluticasone/Salmeterol 250/50 1 puff IH Q12H 07/03/16 [Advair Diskus 250/50] Gabapentin [Neurontin] 100 mg PO TID 07/03/16 Lisinopril [Zestril] 10 mg PO DAILY 07/03/16 MetFORMIN [glucoPHAGE] 1,000 mg PO BID 07/03/16 Metoprolol Tartrate [Lopressor] 50 mg PO DAILY 07/03/16 Pantoprazole Sodium [Protonix] 40 mg PO DAILY 07/03/16 Pravastatin Sodium [Pravachol] 40 mg PO HS 07/03/16 Quetiapine Fumarate [Seroquel] 300 mg PO HS 07/03/16 Divalproex [Depakote DR(*BID*)] 250 mg PO DAILY@1700 #30 tcp 09/30/16 clonazePAM [Klonopin] 0.5 mg PO Q12 tab 09/30/16 Albuterol HFA [Ventolin HFA 90 2 puff IH Q4H #1 puff 12/21/17 mcg/actuation (8 g)] Ciprofloxacin [Cipro] 500 mg PO BID 7 Days tab 01/25/18 Dicyclomine [Bentyl] 20 mg PO BID #30 tab 01/25/18 metroNIDAZOLE [Flagyl] 500 mg PO BID 7 Days tab 01/25/18 - Allergies Allergies/Adverse Reactions: Allergies Allergy/AdvReac Type Severity Reaction Status Date / Time No Known Allergies Allergy Verified 01/25/18 02:34 Review of Systems ROS Statement: Except As Marked, All Systems Reviewed And Found Negative <Jessica Montoya - Last Filed: 01/25/18 02:39> Physical Exam - Reviewed Nursing Documentation Reviewed: Yes Vital Signs Reviewed: Yes - Physical Exam Appears: Positive for: Well, Non-toxic, No Acute Distress Head Exam: Positive for: ATRAUMATIC, NORMAL INSPECTION, NORMOCEPHALIC Skin: Positive for: Normal Color, Warm, DRY Eye Exam: Positive for: EOMI, Normal appearance, PERRL ENT: Positive for: Normal ENT Inspection Neck: Positive for: Normal, Painless ROM Cardiovascular/Chest: Positive for: Regular Rate, Rhythm Respiratory: Positive for: CNT, Normal Breath Sounds Gastrointestinal/Abdominal: Positive for: Normal Exam, Soft, Tenderness (rlq tenderness noted) Back: Positive for: Normal Inspection Extremity: Positive for: Normal ROM Neurologic/Psych: Positive for: Alert, Oriented <Jessica Montoya B - Last Filed: 01/25/18 02:39> - ECG O2 Sat by Pulse Oximetry: 96 <Jessica Montoya B - Last Filed: 01/25/18 02:39> - Laboratory Results Result Diagrams: 01/25/18 03:25 01/25/18 03:25 <Armen Liang - Last Filed: 01/25/18 06:54> Medical Decision Making Medical Decision Making: CT ABD/PELVIS RESULTS FINDINGS: LUNG BASES: The lung bases appear clear. No pleural effusions are seen. There are mildly increased interstitial lung markings present with peripheral and bibasilar predominance suggesting very early or mild pulmonary fibrosis. LIVER: Unremarkable. GALLBLADDER AND BILE DUCTS: The gallbladder appears within normal limits. No radioopaque gallstones are seen. No biliary ductal dilatation is evident. PANCREAS: Unremarkable. SPLEEN: Unremarkable. ADRENAL GLANDS: Unremarkable. KIDNEYS, URETERS, AND BLADDER: Bladder wall thickening is noted measuring up to 4 mm, consistent with bladder outlet obstruction vs cystitis. Small right inguinal hernia is seen containing small portion of the bladder. STOMACH AND BOWEL: Large hiatal hernia is noted. Thick walled distal ileum compatible with enteritis. Infectious and inflammatory etiologies are considered. Consider consultation with GI service and follow up colonoscopy. There is diffuse diverticulosis noted involving descending and sigmoid colon. N o evidence of acute diverticulitis. APPENDIX: Appendix is not identified. Surgical clips are present in the right lower quadrant. PERITONEUM: No free fluid. No free air. LYMPH NODES: No lymphadenopathy is evident. REPRODUCTIVE: Prostate gland is moderately enlarged and contains calcifications. Please correlate with PSA levels. VASCULATURE: No evidence of abdominal aortic aneurysm. BONES: No aggressive appearing osseous lesion. No acute osseous pathology evident. Old compression fractures involving L1 and L4 vertebral bodies. MISCELLANEOUS: Small fat containing left inguinal hernia is also seen. IMPRESSION: 1. Thick walled distal ileum compatible with enteritis. Infectious and inflammatory etiologies are considered. Consider consultation with GI service and follow up colonoscopy. 2. Prostate gland is moderately enlarged and contains calcifications. Please cor relate with PSA levels. 3. Bladder wall thickening is noted measuring up to 4 mm, consistent with b ladder outlet obstruction vs cystitis. 4. Small right inguinal hernia is seen containing small portion of the bladder. Small fat containing left inguinal hernia is also seen. 5, Large hiatal hernia. Electronically signed on Jan 25, 2018 6:25:27 AM EST by: Reji Lee M.D., MBA Certified By [facility] Fellowship Trained MRI and CT Specialist Time: 0650 -- On re-evaluation, patient reports of feeling much better and no longer complains of abdominal pain. Patient is very well appearing and is tolerating PO in the ER. Patient has an appointment with Dr. Frankel on 01/28/2018. Patient was strongly encouraged to follow up. Patient is now stable for discharge home. <Armen Liang - Last Filed: 01/25/18 06:54> Disposition <Jessica Montoya - Last Filed: 01/25/18 02:39> - Patient ED Disposition Is Patient to be Admitted: No Counseled Patient/Family Regarding: Studies Performed, Diagnosis, Need For Followup, Rx Given - Disposition Disposition: Routine/Home Disposition Time: 06:50 <Armen Liang - Last Filed: 01/25/18 06:54> - Clinical Impression Clinical Impression: Enteritis - Disposition Referrals: Alexia Frankel FNP [Family Provider] - Condition: IMPROVED Prescriptions: Ciprofloxacin [Cipro] 500 mg PO BID 7 Days tab Dicyclomine [Bentyl] 20 mg PO BID #30 tab metroNIDAZOLE [Flagyl] 500 mg PO BID 7 Days tab Instructions: Microscopic Colitis Forms: [employer] (French) Print Language: [place] CITIZEN
[2018-01-25] MEDS ORDERED: Iohexol 240 (50 ml) ONE (03:33)
[2018-01-25 03:43] LABS: BASO # 0.1 K/uL (0.0-0.2); EOS # 0.4 K/uL (0.0-0.7); EOS % 5.7 % (0.0-4.0); HEMOGLOBIN 10.6 g/dL (12.0-18.0); LYMPH # 1.9 K/uL (1.0-4.3); LYMPH % 28.6 % (20.0-40.0); MEAN CELL VOLUME 86.9 fl (80.0-94.0); MEAN CORPUSCULAR HEMOGLOBIN 28.5 pg (27.0-31.0); MEAN CORPUSCULAR HGB CONC 32.8 g/dL (33.0-37.0); MEAN PLATELET VOLUME 7.4 fl (7.2-11.7); MONO # 0.8 K/uL (0.0-0.8); MONO % 12.5 % (0.0-10.0); NEUT # 3.4 K/uL (1.8-7.0); NEUT % 52.2 % (50.0-75.0); NRBC % 0.1 % (0.0-0.0); RBC 3.71 Mil/uL (4.40-5.90); RED CELL DISTRIBUTION WIDTH 15.4 % (11.5-14.5); WHITE BLOOD COUNT 6.6 K/uL (4.8-10.8)
[2018-01-25 03:46] LABS: SQUAMOUS EPITHIAL < 1 /hpf (0-5); URINE BILIRUBIN NEGATIVE (NEGATIVE); URINE BLOOD NEGATIVE (NEGATIVE); URINE CLARITY SLIGHTY-CLOUDY (Clear); URINE COLOR YELLOW (YELLOW); URINE GLUCOSE (UA) NEG (Normal); URINE LEUKOCYTE ESTERASE NEG Leu/uL (Negative); URINE PROTEIN NEGATIVE (NEGATIVE); URINE UROBILINOGEN 0.2-1.0 mg/dL (0.2-1.0)
[2018-01-25 04:01] LABS: ALB/GLOB RATIO 1.1 (1.0-2.1); ALBUMIN 3.6 g/dL (3.5-5.0); ALT/SGPT 34 U/L (21-72); AST/SGOT 26 U/L (17-59); BLOOD UREA NITROGEN 21 mg/dl (9-20); CALCIUM 8.9 mg/dL (8.4-10.2); GFR NON-AFRICAN AMERICAN > 60; LIPASE 203 U/L (23-300)
[2018-01-25] MEDS ORDERED: Alum-Mag Hydrox-Simethicone Susp (30 mL) ONE (04:26)
[2018-01-25] MEDS ORDERED: Iohexol 300 100 ML IJ ONE (05:36)
[2018-01-25] MEDS ORDERED: Sodium Chloride 0.9% 100 ML ONE (05:37)
[2018-01-25 07:18] VITALS: BP 127/74; PULSE 82; RESP 17; TEMP 97.6; O2SAT 95
--- NOTE | 2018-01-25 08:34 | CARD ---
APPROVED REPORT Date of service: 01/25/2018 EKG Measurement Heart [id number] <Conclusion> Normal sinus rhythm Normal ECG
--- NOTE | 2018-01-25 13:56 | CT ---
Date of service: 01/25/2018 PROCEDURE: CT Abdomen and Pelvis with contrast HISTORY: right lower quadrant pain; COMPARISON: 03/25/2015 CT scan TECHNIQUE: Contrast dose: 90 milliliters Radiation dose: Total exam DLP = 738.34 mGy-cm. This CT exam was performed using one or more of the following dose reduction techniques: Automated exposure control, adjustment of the mA and/or kV according to patient size, and/or use of iterative reconstruction technique. FINDINGS: LOWER THORAX: Mild dependent atelectasis is seen at the lung bases as well as some mild stable posterior pleural thickening. No pleural effusion is clearly seen. No pneumothorax is noted. There is also evidence of previously noted mild to moderate-sized retrocardiac hiatal hernia. Remainder of the distal esophagus is otherwise within normal limits. Stomach is decompressed limiting evaluation although no wall thickening is seen. LIVER: Stable mild fatty infiltration of the liver without evidence of focal mass or intrahepatic ductal dilatation. GALLBLADDER AND BILE DUCTS: Unremarkable. PANCREAS: Unremarkable. No gross lesion or ductal dilatation. SPLEEN: Unremarkable. ADRENALS: Unremarkable. No mass. KIDNEYS AND URETERS: Minimal pelvic fullness without hydronephrosis or perinephric changes. No renal masses or calculi. No ureteral calculus. VASCULATURE: Unremarkable. No aortic aneurysm. Minor aortic atherosclerotic calcification or mural plaque present. BOWEL: There is mild terminal ileal thickening versus under distention. A mild amount of ileitis cannot be excluded. Remainder of the colon and small bowel are unremarkable without wall thickening or pericolonic inflammatory change. No small bowel obstruction is noted. No mesenteric thickening is seen. Duodenum is unremarkable. APPENDIX: Appendix appears to have been previously removed with small appendiceal stump noted without inflammatory change. PERITONEUM: Unremarkable. No free fluid. No free air. LYMPH NODES: Unremarkable. No enlarged lymph nodes. BLADDER: Mild bladder wall thickening, increased from prior study. In addition the anterior inferior right bladder now extends into a right inguinal hernia. No focal bladder wall thickening is seen in this region. Mild amount of cystitis is not excluded. REPRODUCTIVE: Prostate gland is enlarged. BONES: There is chronic appearing superior anterior endplate compression fracture of L4, new from the prior study. Additional degenerative changes are seen elsewhere in the lumbar spine. Degenerative changes are seen in the hips. No sacral insufficiency fracture is seen. OTHER FINDINGS: None. IMPRESSION: Right inguinal hernia with a portion of the anterior right bladder extending into the hernia. This is new from prior study. Mild bladder wall thickening which may suggest an element of chronic outlet obstruction or mild cystitis. Nonspecific mild thickening versus underdistention of the terminal ileum. Mild ileitis and/or inflammatory bowel disease is not excluded. This agrees with preliminary reading.
[2018-01-25] MEDS ORDERED: Piperacillin/Tazobact 3.375 gm Inj IVPB ONE (17:25)
== END 2018-01-25 07:18 | disposition home or self-care (01) ==
LOC: H.ER 01:54
DX: K52.9 Noninfective gastroenteritis and colitis, unspecified (principal); E11.9 Type 2 diabetes mellitus without complications; E78.00 Pure hypercholesterolemia, unspecified; G20 Parkinson's disease; I10 Essential (primary) hypertension; Z79.84 Long term (current) use of oral hypoglycemic drugs; Z79.899 Other long term (current) drug therapy
CPT/HCPCS: 74177; 80053; 81003; 83690; 85025; 93005; 96360; 96361; 99283; J7030; Q9966; Q9967

== ENCOUNTER 2018-02-11 19:06 | Emergency (ER) | payer MEDICARE, OTHER ==
[2018-02-11 19:07] VITALS: BMI 29.2
[2018-02-11 20:15] VITALS: RESP 16; TEMP 98.3; O2SAT 100
[2018-02-11] MEDS ORDERED: Tdap Vaccine 0.5 ml Vial (10-64 yrs) IM ONE ×2 (21:18→21:37)
[2018-02-11] MEDS ORDERED: Bacitracin 500 Units/gm Oint Foilpak UD TOP STA (21:18)
--- NOTE | 2018-02-11 21:37 | ED PDOC ---
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 states earlier today at approximately 0500 he tripped and fell as he was using his new orthopedic shoes. Pt. states he fell face forward injuring his face. Denies LOC, neck pain, anticoagulant use, previous TBI, extremity pain, weakness, dizziness, chest pain, abd pain. Past Medical History Reviewed: Historical Data, Nursing Documentation, Vital Signs Vital Signs: Last Vital Signs Temp 98.3 F 02/11/18 20:12 Pulse 96 H 02/11/18 20:12 Resp 16 02/11/18 20:12 BP 164/88 H 02/11/18 20:12 Pulse Ox 100 02/11/18 20:12 - Medical History PMH: Anxiety, Asthma, Atrial Fibrillation, Bipolar Disorder, COPD, Dementia (with behavioral disturbances), Depression, Diabetes, Diverticulitis, Emphysema, Gastritis, Gall Bladder Disease, HTN, Hypercholesterolemia, Parkinson's Disease, Schizophrenia, Seizures Denies: Hepatitis, HIV, Kidney Stones, Chronic Kidney Disease, Sexually Transmitted Disease - Surgical History Surgical History: Appendectomy, Hernia Repair (ventral) - Family History Family History: States: No Known Family Hx - Immunization History Hx Tetanus Toxoid Vaccination: No Hx Influenza Vaccination: No Hx Pneumococcal Vaccination: No - Home Medications Home Medications: Ambulatory Orders Medication Instructions Recorded Aspirin [Ecotrin] 81 mg PO DAILY 07/03/16 Carbidopa/Levodopa 1 tab PO TID 07/03/16 [Carbidopa-Levodopa 25-100 Tab] Dextromethorphan HBr/Quinidine 1 cap PO BID 07/03/16 [Nuedexta 20-10 mg Capsule] Divalproex [Depakote ER] 500 mg PO BID 07/03/16 Fluticasone/Salmeterol 250/50 1 puff IH Q12H 07/03/16 [Advair Diskus 250/50] Gabapentin [Neurontin] 100 mg PO TID 07/03/16 Lisinopril [Zestril] 10 mg PO DAILY 07/03/16 MetFORMIN [glucoPHAGE] 1,000 mg PO BID 07/03/16 Metoprolol Tartrate [Lopressor] 50 mg PO DAILY 04/19/17 Pantoprazole Sodium [Protonix] 40 mg PO DAILY 07/03/16 Pravastatin Sodium [Pravachol] 40 mg PO HS 07/03/16 Quetiapine Fumarate [Seroquel] 300 mg PO HS 07/03/16 Divalproex [Depakote DR(*BID*)] 250 mg PO DAILY@1700 #30 tcp 09/30/16 clonazePAM [Klonopin] 0.5 mg PO Q12 tab 09/30/16 Albuterol HFA [Ventolin HFA 90 2 puff IH Q4H #1 puff 12/21/17 mcg/actuation (8 g)] Ciprofloxacin [Cipro] 500 mg PO BID 7 Days tab 01/25/18 Dicyclomine [Bentyl] 20 mg PO BID #30 tab 01/25/18 metroNIDAZOLE [Flagyl] 500 mg PO BID 7 Days tab 01/25/18 Amoxicillin/Clavulanate [Augmentin 1 tab PO BID #20 tab 02/11/18 500 MG-125 MG] - Allergies Allergies/Adverse Reactions: Allergies Allergy/AdvReac Type Severity Reaction Status Date / Time No Known Allergies Allergy Verified 01/25/18 02:34 Review of Systems ROS Statement: Except As Marked, All Systems Reviewed And Found Negative Physical Exam - Physical Exam Appears: Positive for: Well, Non-toxic, No Acute Distress Head Exam: Positive for: ATRAUMATIC, NORMAL INSPECTION, NORMOCEPHALIC Skin: Positive for: Normal Color, Warm. Negative for: Rash Eye Exam: Positive for: Normal appearance, EOMI, PERRL. Negative for: Periorbital swelling, Periorbital tenderness ENT: Positive for: TM Is/Are (no hemotympanumd b/l), Other (superficial abrasions noted to nasal bridge with mild swelling; no septal hematoma b/l) Cardiovascular/Chest: Positive for: Regular Rate, Rhythm, Chest Non Tender Respiratory: Positive for: Normal Breath Sounds. Negative for: Respiratory Distress Gastrointestinal/Abdominal: Positive for: Soft. Negative for: Tenderness Back: Positive for: Normal Inspection. Negative for: L CVA Tenderness, R CVA Tenderness, Vertebral Tenderness (including c-spine) Neurologic/Psych: Positive for: Alert, Oriented (x3), Gait (steady, unassisted). Negative for: Aphasia, Facial Droop - ECG O2 Sat by Pulse Oximetry: 100 - Progress ED Course And Treament: Tylenol 975mg PO, adacel IM, CT head/maxillofacial w/o contrast ordered. Wounds cleansed and dressed. Bacitracin ointment applied. 2315 CT head and maxillofacial w/o contrast: No ICH; L mild maxillary sinusitis Pt. informed of results and plan. Repeat neuro exam is non-focal. Gait steady, unassisted. Disposition - Clinical Impression Clinical Impression: Head injury, Facial contusion - Patient ED Disposition Is Patient to be Admitted: No - Disposition Referrals: [facility] [Outside] Disposition: Routine/Home Disposition Time: 23:17 Condition: STABLE Additional Instructions: ALVAREZ MILLS, thank you for letting us take care of you today. Your provider was Carisa Floyd MD and you were treated for FALL: FACIAL INJURY. The emergency medical care you received today was directed at your acute symptoms. If you were prescribed any medication, please fill it and take as directed. It may take several days for your symptoms to resolve. Return to the Emergency Department if your symptoms worsen, do not improve, or if you have any other problems. Please contact your doctor or call one of the physicians/clinics you have been referred to that are listed on the Patient Visit Information form that is included in your discharge packet. Bring any paperwork you were given at discharge with you along with any medications you are taking to your follow up visit. Our treatment cannot replace ongoing medical care by a primary care provider outside of the emergency department. Thank you for allowing the [facility] team to be part of your care today. If you had an X-Ray or CT scan: A Radiologist will review the ED reading if any change in treatment is needed we will contact you. If you had a blood, urine, or wound culture: It will take several days for the results, if any change in treatment is needed we will contact you. If you had an STI test: It will take 48 hours for the results. Please call after 1 week if you have not heard back. Prescriptions: Amoxicillin/Clavulanate [Augmentin 500 MG-125 MG] 1 tab PO BID #20 tab Instructions: Sinusitis, Adult (DC), Closed Head Injury (DC), Contusion (DC) Forms: [employer] (Austrian) Print Language: CYMRO
[2018-02-12 00:07] VITALS: BP 150/78; PULSE 90
--- NOTE | 2018-02-12 08:31 | CT ---
Date of service: 02/11/2018 PROCEDURE: CT HEAD WITHOUT CONTRAST. HISTORY: trauma COMPARISON: 04/13/2014 TECHNIQUE: Axial computed tomography images were obtained through the head/brain without intravenous contrast. Radiation dose: Total exam DLP = 1647.6 mGy-cm. This CT exam was performed using one or more of the following dose reduction techniques: Automated exposure control, adjustment of the mA and/or kV according to patient size, and/or use of iterative reconstruction technique. FINDINGS: HEMORRHAGE: No intracranial hemorrhage. BRAIN: No mass effect or edema. Mild diffuse age-appropriate cerebral atrophy. Moderate patchy and confluent periventricular and deep/subcortical white matter lucency consistent with microvascular ischemic change. No evidence of acute infarct. VENTRICLES: Unremarkable. No hydrocephalus. CALVARIUM: Unremarkable. PARANASAL SINUSES: Chronic left maxillary sinusitis. Minimal chronic ethmoid sinusitis. MASTOID AIR CELLS: Unremarkable as visualized. No inflammatory changes. OTHER FINDINGS: None. IMPRESSION: No intracranial mass, hemorrhage or evidence of acute infarct. Chronic white matter ischemic change. Mild age-appropriate atrophy. Chronic paranasal sinusitis. The preliminary findings for this examination were reported by [facility] at 11:03 p.m. on 02/11/2018. There is concurrence of this report with the preliminary findings.
--- NOTE | 2018-02-12 09:19 | CT ---
Date of service: 02/11/2018 PROCEDURE: CT MAXILLOFACIAL BONES WITHOUT CONTRAST HISTORY: trauma COMPARISON: None available. TECHNIQUE: Contiguous axial CT images of the maxillofacial bones were obtained. Coronal and sagittal reformats were generated. Radiation dose: Total exam DLP = 0.0 mGy-cm. This CT exam was performed using one or more of the following dose reduction techniques: Automated exposure control, adjustment of the mA and/or kV according to patient size, and/or use of iterative reconstruction technique. FINDINGS: NASAL BONES: Unremarkable. ORBITS: Unremarkable. PARANASAL SINUSES/ MASTOIDS: Extensive chronic left maxillary sinusitis. Minimal chronic ethmoid and right maxillary sinusitis. MAXILLA: Unremarkable. MANDIBLE/ TEMPOROMANDIBULAR JOINTS: Unremarkable. SKULL BASE: Unremarkable. TEMPORAL BONES: Middle ears and mastoid grossly unremarkable. OTHER FINDINGS: None. IMPRESSION: No evidence of facial fracture. Chronic paranasal sinusitis. No additional abnormality. The preliminary findings for this examination were reported by [facility] at 11:04 p.m. on 02/11/2018. There is concurrence of this report with the preliminary findings.
== END 2018-02-11 23:26 | disposition home or self-care (01) ==
LOC: H.ER 19:06
DX: S00.83XA Contusion of other part of head, initial encounter (principal); S09.90XA Unspecified injury of head, initial encounter; W01.0XXA Fall on same level from slipping, tripping and stumbling without subsequent striking against object, initial encounter; Y92.89 Other specified places as the place of occurrence of the external cause

== ENCOUNTER 2018-02-12 06:36 | Emergency (ER) | payer MEDICARE, OTHER ==
[2018-02-12 06:36] VITALS: BMI 29.2
[2018-02-12 06:48] VITALS: RESP 18; TEMP 98.2
[2018-02-12 08:09] VITALS: O2SAT 98
--- NOTE | 2018-02-12 09:24 | ED PDOC ---
HPI: Altered Mental Status Time Seen by Provider: 02/12/18 07:16 Chief Complaint (Nursing): Altered Mental Status History Per: Patient, EMS History/Exam Limitations: Other (Dementia/parkinson's) Usual Baseline: Alert Confused (oriented to year and person. Unable to state how he came to the ED) Associated Symptoms: Confused. denies: Fever, Chills, Sweating, Chest Pain Past Medical History Vital Signs: Last Vital Signs Temp 98.2 F 02/12/18 06:42 Pulse 104 H 02/12/18 08:00 Resp 18 02/12/18 06:42 BP 131/75 02/12/18 06:42 Pulse Ox 98 02/12/18 08:00 - Medical History PMH: Anxiety, Asthma, Atrial Fibrillation, Bipolar Disorder, COPD, Dementia (with behavioral disturbances), Depression, Diabetes, Diverticulitis, Emphysema, Gastritis, Gall Bladder Disease, HTN, Hypercholesterolemia, Parkinson's Disease, Schizophrenia, Seizures Denies: Hepatitis, HIV, Kidney Stones, Chronic Kidney Disease, Sexually Transmitted Disease - Surgical History Surgical History: Appendectomy, Hernia Repair (ventral) - Family History Family History: States: Unknown Family Hx - Immunization History Hx Tetanus Toxoid Vaccination: No Hx Influenza Vaccination: No Hx Pneumococcal Vaccination: No - Home Medications Home Medications: Ambulatory Orders Medication Instructions Recorded Aspirin [Ecotrin] 81 mg PO DAILY 07/03/16 Carbidopa/Levodopa 1 tab PO TID 07/03/16 [Carbidopa-Levodopa 25-100 Tab] Dextromethorphan HBr/Quinidine 1 cap PO BID 07/03/16 [Nuedexta 20-10 mg Capsule] Divalproex [Depakote ER] 500 mg PO BID 07/03/16 Fluticasone/Salmeterol 250/50 1 puff IH Q12H 07/03/16 [Advair Diskus 250/50] Gabapentin [Neurontin] 100 mg PO TID 07/03/16 Lisinopril [Zestril] 10 mg PO DAILY 07/03/16 MetFORMIN [glucoPHAGE] 1,000 mg PO BID 07/03/16 Metoprolol Tartrate [Lopressor] 50 mg PO DAILY 07/03/16 Pantoprazole Sodium [Protonix] 40 mg PO DAILY 07/03/16 Pravastatin Sodium [Pravachol] 40 mg PO HS 07/03/16 Quetiapine Fumarate [Seroquel] 300 mg PO HS 07/03/16 Divalproex [Depakote DR(*BID*)] 250 mg PO DAILY@1700 #30 tcp 09/30/16 clonazePAM [Klonopin] 0.5 mg PO Q12 tab 09/30/16 Albuterol HFA [Ventolin HFA 90 2 puff IH Q4H #1 puff 12/21/17 mcg/actuation (8 g)] Ciprofloxacin [Cipro] 500 mg PO BID 7 Days tab 01/25/18 Dicyclomine [Bentyl] 20 mg PO BID #30 tab 01/25/18 metroNIDAZOLE [Flagyl] 500 mg PO BID 7 Days tab 01/25/18 Amoxicillin/Clavulanate [Augmentin 1 tab PO BID #20 tab 02/11/18 500 MG-125 MG] - Allergies Allergies/Adverse Reactions: Allergies Allergy/AdvReac Type Severity Reaction Status Date / Time No Known Allergies Allergy Verified 01/25/18 02:34 Review of Systems Constitutional: Negative for: Fever, Chills Cardiovascular: Negative for: Chest Pain Respiratory: Negative for: Cough, Shortness of Breath Gastrointestinal: Negative for: Nausea, Vomiting, Abdominal Pain Physical Exam - Physical Exam Appears: Positive for: Non-toxic, No Acute Distress Head Exam: Negative for: ATRAUMATIC (abrasion to nasal bridge without sign of infection) Skin: Positive for: Normal Color, Warm, Dry Eye Exam: Positive for: Normal appearance Respiratory: Positive for: Normal Breath Sounds Gastrointestinal/Abdominal: Positive for: Normal Exam, Soft. 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 Negative for: Oriented (unable to state how he came to the emergency department) - ECG O2 Sat by Pulse Oximetry: 98 Medical Decision Making Medical Decision Makin: Pt with no complaints at this time and no abnormalities on PE. Calm, cooperative, requesting food. Unable to state how he will get home so will attempt to contact family for safe discharge home. 915: Pt began shouting and pacing room and screaming at staff. Will given Ativan to calm to the patient while we attempt to contact his son or for safe discharge home. 10:26 --Patient's son is present in the ED and will accompany patient home. He is ambulating with normal vitals. Stable for discharge home. Disposition - Clinical Impression Clinical Impression: Altered mental status, Parkinson disease - Patient ED Disposition Is Patient to be Admitted: No - Disposition Disposition: Routine/Home Disposition Time: 10:26 Condition: STABLE Instructions: Parkinson Disease Forms: [facility] (Belizean), [facility] (Romanian) Print Language: FAROESE
[2018-02-12 10:39] VITALS: BP 130/78; PULSE 102
== END 2018-02-12 10:44 | disposition home or self-care (01) ==
LOC: H.ER 06:36
DX: R41.82 Altered mental status, unspecified (principal); G20 Parkinson's disease; E11.9 Type 2 diabetes mellitus without complications; E78.00 Pure hypercholesterolemia, unspecified
CPT/HCPCS: 82948; 96372; 99285; J2060

== ENCOUNTER 2018-06-06 02:35 | Emergency (ER) | payer MEDICARE, OTHER ==
[2018-06-06 02:35] VITALS: BMI 29.2
[2018-06-06 02:51] VITALS: O2SAT 97
--- NOTE | 2018-06-06 03:23 | ED PDOC ---
HPI: Skin/Bite Injury Time Seen by Provider: 06/06/18 02:59 Chief Complaint (Nursing): Abnormal Skin Integrity Chief Complaint (Provider): Abnormal Skin Integrity History Per: Patient History/Exam Limitations: no limitations Location Of Injury: Right: Hand, Left: Hand Quality Of Symptoms: Itching Additional Complaint(s): 72 y/o male who is well known to the ED for multiple visits and with history of depression, anxiety, and arthritis, presents with pruritic rash to knuckle surfaces bilaterally. Patient reports the rash itchy and is localized to both his knuckles without affecting any other body parts. Denies any known sick contact. Patient states he has been using topical cortisone with little to no relief. Past Medical History Reviewed: Historical Data, Nursing Documentation, Vital Signs Vital Signs: Last Vital Signs Temp 97.7 F 06/06/18 02:49 Pulse 111 H 06/06/18 02:49 Resp 18 06/06/18 02:49 BP 170/80 H 06/06/18 02:49 Pulse Ox 97 06/06/18 02:49 - Medical History PMH: Anxiety, Asthma, Atrial Fibrillation, Bipolar Disorder, COPD, Dementia (with behavioral disturbances), Depression, Diabetes, Diverticulitis, Emphysema, Gastritis, Gall Bladder Disease, HTN, Hypercholesterolemia, Parkinson's Disease, Schizophrenia, Seizures Denies: Hepatitis, HIV, Kidney Stones, Chronic Kidney Disease, Sexually Transmitted Disease - Surgical History Surgical History: Appendectomy, Hernia Repair (ventral) - Family History Family History: States: Unknown Family Hx - Social History Current smoker - smoking cessation education provided: No Alcohol: None Drugs: Denies - Immunization History Hx Tetanus Toxoid Vaccination: No Hx Influenza Vaccination: No Hx Pneumococcal Vaccination: No - Home Medications Home Medications: Ambulatory Orders Medication Instructions Recorded Aspirin [Ecotrin] 81 mg PO DAILY 07/03/16 Carbidopa/Levodopa 1 tab PO TID 07/03/16 [Carbidopa-Levodopa 25-100 Tab] Dextromethorphan HBr/Quinidine 1 cap PO BID 07/03/16 [Nuedexta 20-10 mg Capsule] Divalproex [Depakote ER] 500 mg PO BID 07/03/16 Fluticasone/Salmeterol 250/50 1 puff IH Q12H 07/03/16 [Advair Diskus 250/50] Gabapentin [Neurontin] 100 mg PO TID 07/03/16 Lisinopril [Zestril] 10 mg PO DAILY 07/03/16 MetFORMIN [glucoPHAGE] 1,000 mg PO BID 07/03/16 Metoprolol Tartrate [Lopressor] 50 mg PO DAILY 07/03/16 Pantoprazole Sodium [Protonix] 40 mg PO DAILY 07/03/16 Pravastatin Sodium [Pravachol] 40 mg PO HS 07/03/16 Quetiapine Fumarate [Seroquel] 300 mg PO HS 07/03/16 Divalproex [Depakote DR(*BID*)] 250 mg PO DAILY@1700 #30 tcp 09/30/16 clonazePAM [Klonopin] 0.5 mg PO Q12 tab 09/30/16 Albuterol HFA [Ventolin HFA 90 2 puff IH Q4H #1 puff 12/21/17 mcg/actuation (8 g)] Ciprofloxacin [Cipro] 500 mg PO BID 7 Days tab 01/25/18 Dicyclomine [Bentyl] 20 mg PO BID #30 tab 01/25/18 metroNIDAZOLE [Flagyl] 500 mg PO BID 7 Days tab 01/25/18 Amoxicillin/Clavulanate [Augmentin 1 tab PO BID #20 tab 02/11/18 500 MG-125 MG] predniSONE [predniSONE Tab] 60 mg PO QAM #12 tab 06/06/18 - Allergies Allergies/Adverse Reactions: Allergies Allergy/AdvReac Type Severity Reaction Status Date / Time No Known Allergies Allergy Verified 01/25/18 02:34 Review of Systems ROS Statement: Except As Marked, All Systems Reviewed And Found Negative Skin: Positive for: Rash Physical Exam - Reviewed Nursing Documentation Reviewed: Yes Vital Signs Reviewed: Yes - Physical Exam Appears: Positive for: Well, Non-toxic, No Acute Distress Head Exam: Positive for: ATRAUMATIC, NORMAL INSPECTION, NORMOCEPHALIC Skin: Positive for: Rash (trace erythema to metacarpal surfaces of both hands with visible scratch jenkins; no bleeding or induration) Eye Exam: Positive for: EOMI, Normal appearance, PERRL Extremity: Positive for: Normal ROM. Negative for: Pedal Edema, Deformity Neurological/Psych: Positive for: Awake, Alert, Normal Tone. Negative for: Motor/Sensory Deficits - ECG O2 Sat by Pulse Oximetry: 97 (RA) Pulse Ox Interpretation: Normal Medical Decision Making Medical Decision Making: Time: 03:09 Impression: 72 y/o male with localized dermatitis Initial Plan: * IM Solumedrol Provider reassured patient as to benign nature of findings. Patient stable for dicharge and will follow up with his primary care provider. Scribe Attestation: Documented by Jorge Koehler, acting as a scribe Trish Ku MD Provider Scribe Attestation: All medical record entries made by the Scribe were at my direction and personally dictated by me. I have reviewed the chart and agree that the record accurately reflects my personal performance of the history, physical exam, medical decision making, and the department course for this patient. I have also personally directed, reviewed, and agree with the discharge instructions and disposition Disposition - Clinical Impression Clinical Impression: Dermatitis - Disposition Disposition: Routine/Home Disposition Time: 03:30 Condition: STABLE Prescriptions: predniSONE [predniSONE Tab] 60 mg PO QAM #12 tab Instructions: Dermatitis Forms: [facility] (Russian) Print Language: POLISH
[2018-06-06 03:59] VITALS: BP 157/89; PULSE 89; RESP 17; TEMP 97.9
== END 2018-06-06 03:50 | disposition home or self-care (01) ==
LOC: H.ER 02:35
DX: L30.9 Dermatitis, unspecified (principal); E11.9 Type 2 diabetes mellitus without complications; Z86.59 Personal history of other mental and behavioral disorders; G20 Parkinson's disease; I10 Essential (primary) hypertension; J44.9 Chronic obstructive pulmonary disease, unspecified; Z79.82 Long term (current) use of aspirin; Z79.84 Long term (current) use of oral hypoglycemic drugs; Z79.899 Other long term (current) drug therapy
CPT/HCPCS: 96372; 99283; J2930

== ENCOUNTER 2018-06-16 23:23 | Emergency (ER) | payer MEDICARE, OTHER ==
[2018-06-16 23:24] VITALS: BMI 29.2
[2018-06-16 23:49] VITALS: O2SAT 97
--- NOTE | 2018-06-17 01:21 | ED PDOC ---
Upper Extremity Pain/Injury Time Seen by Provider: 06/17/18 01:00 Chief Complaint (Nursing): Finger,Hand,&Wrist Chief Complaint (Provider): left hand 5th digit wound Additional Complaint(s): 72 y/o male presents for evaluation of wound to left hand 5th digit x 5 days. Patient states one week ago he started experiencing itching to knuckles of bilateral hands; admits to scratching. Patient states he was seen here for it at that time and given an injection. Patient states itching has since improved but states skin near the side of his left 5th digit knuckle has "split open", and is swollen and painful around it. Denies fever, numbness/weakness upper extremities, drainage from site. Patient has been applying peroxide. Past Medical History Reviewed: Historical Data, Nursing Documentation, Vital Signs Vital Signs: Last Vital Signs Temp 98.2 F 06/16/18 23:46 Pulse 100 H 06/16/18 23:46 Resp 20 06/16/18 23:46 BP 147/75 06/16/18 23:46 Pulse Ox 97 06/16/18 23:46 - Medical History PMH: Anxiety, Asthma, Atrial Fibrillation, Bipolar Disorder, COPD, Dementia (with behavioral disturbances), Depression, Diabetes, Diverticulitis, Emphysema, Gastritis, Gall Bladder Disease, HTN, Hypercholesterolemia, Parkinson's Disease, Schizophrenia, Seizures Denies: Hepatitis, HIV, Kidney Stones, Chronic Kidney Disease, Sexually Transmitted Disease - Surgical History Surgical History: Appendectomy, Hernia Repair (ventral) - Family History Family History: States: Unknown Family Hx - Immunization History Hx Tetanus Toxoid Vaccination: No Hx Influenza Vaccination: No Hx Pneumococcal Vaccination: No - Home Medications Home Medications: Ambulatory Orders Medication Instructions Recorded Aspirin [Ecotrin] 81 mg PO DAILY 07/03/16 Carbidopa/Levodopa 1 tab PO TID 07/03/16 [Carbidopa-Levodopa 25-100 Tab] Dextromethorphan HBr/Quinidine 1 cap PO BID 07/03/16 [Nuedexta 20-10 mg Capsule] Divalproex [Depakote ER] 500 mg PO BID 07/03/16 Fluticasone/Salmeterol 250/50 1 puff IH Q12H 07/03/16 [Advair Diskus 250/50] Gabapentin [Neurontin] 100 mg PO TID 07/03/16 Lisinopril [Zestril] 10 mg PO DAILY 07/03/16 MetFORMIN [glucoPHAGE] 1,000 mg PO BID 07/03/16 Metoprolol Tartrate [Lopressor] 50 mg PO DAILY 07/03/16 Pantoprazole Sodium [Protonix] 40 mg PO DAILY 07/03/16 Pravastatin Sodium [Pravachol] 40 mg PO HS 07/03/16 Quetiapine Fumarate [Seroquel] 300 mg PO HS 07/03/16 Divalproex [Depakote DR(*BID*)] 250 mg PO DAILY@1700 #30 tcp 09/30/16 clonazePAM [Klonopin] 0.5 mg PO Q12 tab 09/30/16 Albuterol HFA [Ventolin HFA 90 2 puff IH Q4H #1 puff 12/21/17 mcg/actuation (8 g)] Ciprofloxacin [Cipro] 500 mg PO BID 7 Days tab 01/25/18 Dicyclomine [Bentyl] 20 mg PO BID #30 tab 01/25/18 metroNIDAZOLE [Flagyl] 500 mg PO BID 7 Days tab 01/25/18 Amoxicillin/Clavulanate [Augmentin 1 tab PO BID #20 tab 02/11/18 500 MG-125 MG] predniSONE [predniSONE Tab] 60 mg PO QAM #12 tab 06/06/18 Bacitracin Ointment [Bacitracin] 1 applic TOP DAILY #1 tube 06/17/18 Cephalexin [cephalexin] 500 mg PO Q6 #28 cap 06/17/18 - Allergies Allergies/Adverse Reactions: Allergies Allergy/AdvReac Type Severity Reaction Status Date / Time No Known Allergies Allergy Verified 06/16/18 23:46 Review of Systems ROS Statement: Except As Marked, All Systems Reviewed And Found Negative Musculoskeletal: Positive for: Hand Pain (left hand 5th digit wound) Physical Exam - Reviewed Nursing Documentation Reviewed: Yes Vital Signs Reviewed: Yes - Physical Exam Appears: Positive for: Well, Non-toxic, No Acute Distress Pulses-Radial (L): 2+ Pulses-Radial (R): 2+ Extremity: Positive for: Normal ROM, Other (dry skin/dermatitis to knuckles of bilateral upper extremities; skin split open medial aspect left 5th DIP with surrounding tenderness. No drainage, erythema noted. Small skin abrasion/split to medial aspect right hand 5th DIP and left 3rd MCP without tenderness, drainage, edema. FROM. Distal NV/motor intact) Neurological/Psych: Positive for: Awake, Alert, Oriented (x3) - ECG O2 Sat by Pulse Oximetry: 97 - Progress ED Course And Treament: wounds cleaned with NS, bacitracin applied, bandage applied Patient educated on wound care, rx Keflex, Bacitracin provided Advised to moisturize with Aquaphor/Eucerin Follow up with PMD within 2-3 days Return precautions given Disposition - Clinical Impression Clinical Impression: Dermatitis, Finger wound, simple, open - Patient ED Disposition Is Patient to be Admitted: No Counseled Patient/Family Regarding: Diagnosis, Need For Followup, Rx Given - Disposition Disposition: Routine/Home Disposition Time: 01:27 Condition: IMPROVED Prescriptions: Bacitracin Ointment [Bacitracin] 1 applic TOP DAILY #1 tube Cephalexin [cephalexin] 500 mg PO Q6 #28 cap Instructions: Dermatitis, Wound Care Forms: [facility] (Japanese) Print Language: YORUBA
[2018-06-17 01:55] VITALS: BP 141/84; PULSE 88; RESP 17; TEMP 98.1
== END 2018-06-17 01:50 | disposition home or self-care (01) ==
LOC: H.ER 23:23
DX: L30.9 Dermatitis, unspecified (principal); Z48.01 Encounter for change or removal of surgical wound dressing; I10 Essential (primary) hypertension; J44.9 Chronic obstructive pulmonary disease, unspecified; E11.9 Type 2 diabetes mellitus without complications; Z86.59 Personal history of other mental and behavioral disorders; G20 Parkinson's disease; Z79.82 Long term (current) use of aspirin; Z79.84 Long term (current) use of oral hypoglycemic drugs; Z79.899 Other long term (current) drug therapy

== ENCOUNTER 2018-07-27 09:35 | Inpatient (IN) | payer MEDICARE, OTHER ==
[2018-07-27 09:45] VITALS: BMI 29.8
--- NOTE | 2018-07-27 10:14 | ED PDOC ---
HPI: General Adult Time Seen by Provider: 07/27/18 09:50 Past Medical History Vital Signs: Last Vital Signs Temp 98.3 F 07/27/18 09:44 Pulse 117 H 07/27/18 09:44 Resp 16 07/27/18 09:44 BP 151/95 H 07/27/18 09:44 Pulse Ox 98 07/27/18 09:44 - Medical History PMH: Anxiety, Asthma, Atrial Fibrillation, Bipolar Disorder, COPD, Dementia (with behavioral disturbances), Depression, Diabetes, Diverticulitis, Emphysema, Gastritis, Gall Bladder Disease, HTN, Hypercholesterolemia, Parkinson's Disease, Schizophrenia, Seizures Denies: Hepatitis, HIV, Kidney Stones, Chronic Kidney Disease, Sexually Transmitted Disease - Surgical History Surgical History: Appendectomy, Hernia Repair (ventral) - Family History Family History: States: Unknown Family Hx - Immunization History Hx Tetanus Toxoid Vaccination: No Hx Influenza Vaccination: No Hx Pneumococcal Vaccination: No - Home Medications Home Medications: Ambulatory Orders Medication Instructions Recorded Aspirin [Ecotrin] 81 mg PO DAILY 07/03/16 Carbidopa/Levodopa 1 tab PO TID 07/03/16 [Carbidopa-Levodopa 25-100 Tab] Dextromethorphan HBr/Quinidine 1 cap PO BID 07/03/16 [Nuedexta 20-10 mg Capsule] Divalproex [Depakote ER] 500 mg PO BID 07/03/16 Fluticasone/Salmeterol 250/50 1 puff IH Q12H 07/03/16 [Advair Diskus 250/50] Gabapentin [Neurontin] 100 mg PO TID 07/03/16 Lisinopril [Zestril] 10 mg PO DAILY 07/03/16 MetFORMIN [glucoPHAGE] 1,000 mg PO BID 07/03/16 Metoprolol Tartrate [Lopressor] 50 mg PO DAILY 07/03/16 Pantoprazole Sodium [Protonix] 40 mg PO DAILY 07/03/16 Pravastatin Sodium [Pravachol] 40 mg PO HS 07/03/16 Quetiapine Fumarate [Seroquel] 300 mg PO HS 07/03/16 Divalproex [Depakote DR(*BID*)] 250 mg PO DAILY@1700 #30 tcp 09/30/16 clonazePAM [Klonopin] 0.5 mg PO Q12 tab 09/30/16 Albuterol HFA [Ventolin HFA 90 2 puff IH Q4H #1 puff 12/21/17 mcg/actuation (8 g)] Ciprofloxacin [Cipro] 500 mg PO BID 7 Days tab 01/25/18 Dicyclomine [Bentyl] 20 mg PO BID #30 tab 01/25/18 metroNIDAZOLE [Flagyl] 500 mg PO BID 7 Days tab 01/25/18 Amoxicillin/Clavulanate [Augmentin 1 tab PO BID #20 tab 02/11/18 500 MG-125 MG] predniSONE [predniSONE Tab] 60 mg PO QAM #12 tab 06/06/18 Bacitracin Ointment [Bacitracin] 1 applic TOP DAILY #1 tube 06/17/18 Cephalexin [cephalexin] 500 mg PO Q6 #28 cap 06/17/18 - Allergies Allergies/Adverse Reactions: Allergies Allergy/AdvReac Type Severity Reaction Status Date / Time No Known Allergies Allergy Verified 06/16/18 23:46 - ECG O2 Sat by Pulse Oximetry: 98
--- NOTE | 2018-07-27 10:22 | ED PDOC ---
HPI: Psych/Substance Abuse Additional Complaint(s): 72 y/o M with a extensive psychiatry HX is brought by EMS due to agitation episode this morning. Pt reports having feeling very angry this morning. EMS was called, dangeorus elevated BP was detected and brought here due to inability to calm patient down. Pt reports feeling OK now, repeated BP 151/95. Pt reports feeling sad every now and then, denies suicidal ideation or harm to others. Pt d enies fever, chills, chest pain, palpitations, SOB, wheezing, coughing, nausea, vomiting, diarrhea, rash or peripheral edema. PMD: Dr Frankel Psychiatrist: Dr Akosua NEGRON Medication: As per EMR. PMHx: Bipolar disorder, Parkinson's disease, Dementia, HTN, DM2, HLD, COPD, AFib, gastritis, diverticulitis PSHx: denied FHx: NC SHx: denied tobacco, alcohol or rec drugs. <Drew Spivey - Last Filed: 07/27/18 10:28> <Rama Goodwin - Last Filed: 07/27/18 15:44> Time Seen by Provider: 07/27/18 09:50 Past Medical History Vital Signs: Last Vital Signs Temp 98.3 F 07/27/18 09:44 Pulse 117 H 07/27/18 09:44 Resp 16 07/27/18 09:44 BP 151/95 H 07/27/18 09:44 Pulse Ox 98 07/27/18 09:44 - Medical History PMH: Anxiety, Asthma, Atrial Fibrillation, Bipolar Disorder, COPD, Dementia (with behavioral disturbances), Depression, Diabetes, Diverticulitis, Emphysema, Gastritis, Gall Bladder Disease, HTN, Hypercholesterolemia, Parkinson's Disease, Schizophrenia, Seizures Denies: Hepatitis, HIV, Kidney Stones, Chronic Kidney Disease, Sexually Transmitted Disease - Surgical History Surgical History: Appendectomy, Hernia Repair (ventral) - Family History Family History: States: Unknown Family Hx - Immunization History Hx Tetanus Toxoid Vaccination: No Hx Influenza Vaccination: No Hx Pneumococcal Vaccination: No <Drew Spivey - Last Filed: 07/27/18 10:28> Vital Signs: Last Vital Signs Temp 98.3 F 07/27/18 09:44 Pulse 117 H 07/27/18 09:44 Resp 16 07/27/18 09:44 BP 151/95 H 05/13/19 09:44 Pulse Ox 98 07/27/18 10:34 <Rama Goodwin F - Last Filed: 07/27/18 15:44> - Home Medications Home Medications: Ambulatory Orders Medication Instructions Recorded Aspirin [Ecotrin] 81 mg PO DAILY 07/03/16 Carbidopa/Levodopa 1 tab PO TID 07/03/16 [Carbidopa-Levodopa 25-100 Tab] Dextromethorphan HBr/Quinidine 1 cap PO BID 07/03/16 [Nuedexta 20-10 mg Capsule] Divalproex [Depakote ER] 500 mg PO BID 07/03/16 Fluticasone/Salmeterol 250/50 1 puff IH Q12H 07/03/16 [Advair Diskus 250/50] Gabapentin [Neurontin] 100 mg PO TID 07/03/16 Lisinopril [Zestril] 10 mg PO DAILY 07/03/16 MetFORMIN [glucoPHAGE] 1,000 mg PO BID 07/03/16 Metoprolol Tartrate [Lopressor] 50 mg PO DAILY 07/03/16 Pantoprazole Sodium [Protonix] 40 mg PO DAILY 07/03/16 Pravastatin Sodium [Pravachol] 40 mg PO HS 07/03/16 Quetiapine Fumarate [Seroquel] 300 mg PO HS 07/03/16 Divalproex [Depakote DR(*BID*)] 250 mg PO DAILY@1700 #30 tcp 09/30/16 clonazePAM [Klonopin] 0.5 mg PO Q12 tab 09/30/16 Albuterol HFA [Ventolin HFA 90 2 puff IH Q4H #1 puff 12/21/17 mcg/actuation (8 g)] Ciprofloxacin [Cipro] 500 mg PO BID 7 Days tab 01/25/18 Dicyclomine [Bentyl] 20 mg PO BID #30 tab 01/25/18 metroNIDAZOLE [Flagyl] 500 mg PO BID 7 Days tab 01/25/18 Amoxicillin/Clavulanate [Augmentin 1 tab PO BID #20 tab 02/11/18 500 MG-125 MG] predniSONE [predniSONE Tab] 60 mg PO QAM #12 tab 06/06/18 Bacitracin Ointment [Bacitracin] 1 applic TOP DAILY #1 tube 06/17/18 Cephalexin [cephalexin] 500 mg PO Q6 #28 cap 06/17/18 - Allergies Allergies/Adverse Reactions: Allergies Allergy/AdvReac Type Severity Reaction Status Date / Time No Known Allergies Allergy Verified 06/16/18 23:46 Review of Systems Constitutional: Negative for: Fever, Chills, Sweats Eyes: Negative for: Pain ENT: Negative for: Ear Pain, Ear Discharge, Nose Pain Cardiovascular: Negative for: Chest Pain, Palpitations Respiratory: Negative for: Cough, Shortness of Breath Gastrointestinal: Negative for: Nausea, Vomiting, Abdominal Pain Genitourinary Male: Negative for: Dysuria, Frequency Musculoskeletal: Negative for: Neck Pain Skin: Negative for: Rash Neurological: Negative for: Weakness, Numbness Psych: Positive for: Anxiety, Depression. Negative for: Suicidal ideation, Withdrawal <Drew Spivey - Last Filed: 07/27/18 10:28> Physical Exam - Physical Exam Appears: Positive for: Well Head Exam: Positive for: ATRAUMATIC, NORMAL INSPECTION Eye Exam: Positive for: Normal appearance, EOMI ENT: Positive for: Normal ENT Inspection Neck: Positive for: Normal, Painless ROM, Supple Cardiovascular/Chest: Positive for: Regular Rate, Rhythm Respiratory: Positive for: Normal Breath Sounds Gastrointestinal/Abdominal: Positive for: Soft. Negative for: Tenderness, Organomegaly, Mass Neurological/Psych: Positive for: Awake, Alert, Normal Tone <Drew Spivey - Last Filed: 07/27/18 10:28> - ECG O2 Sat by Pulse Oximetry: 98 <Drew Spivey - Last Filed: 07/27/18 10:28> - Laboratory Results Result Diagrams: 07/27/18 14:14 07/27/18 14:14 Lab Results: Total Bilirubin 0.6 mg/dl (0.2-1.3) 07/27/18 14:14 AST 22 U/L (17-59) 07/27/18 14:14 ALT 24 U/L (21-72) 07/27/18 14:14 Alkaline Phosphatase 68 U/L (38-126) 07/27/18 14:14 Total Protein 7.6 G/DL (6.3-8.2) 07/27/18 14:14 Albumin 4.1 g/dL (3.5-5.0) 07/27/18 14:14 Globulin 3.5 gm/dL (2.2-3.9) 07/27/18 14:14 Albumin/Globulin Ratio 1.2 (1.0-2.1) 07/27/18 14:14 Urine Color Straw (YELLOW) 07/27/18 14:14 Urine Clarity Clear (Clear) 07/27/18 14:14 Urine pH 6.0 (5.0-8.0) 07/27/18 14:14 Ur Specific [place] 1.006 (1.003-1.030) 07/27/18 14:14 Urine Protein Negative mg/dL (NEGATIVE) 07/27/18 14:14 Urine Glucose (UA) Neg mg/dL (NEGATIVE) 07/27/18 14:14 Urine Ketones Negative mg/dL (NEGATIVE) 07/27/18 14:14 Urine Blood Negative (NEGATIVE) 07/27/18 14:14 Urine Nitrate Negative (NEGATIVE) 07/27/18 14:14 Urine Bilirubin Negative (NEGATIVE) 07/27/18 14:14 Urine Urobilinogen 0.2-1.0 mg/dL (0.2-1.0) 07/27/18 14:14 Ur Leukocyte Esterase Neg Nini/uL (Negative) 07/27/18 14:14 Urine RBC (Auto) 1 /hpf (0-3) 07/27/18 14:14 Urine Microscopic WBC < 1 /hpf (0-5) 07/27/18 14:14 - ECG Interpretation Of ECG: ST @ 106, no ST-T changes. <Rama Goodwin - Last Filed: 07/27/18 15:44> Medical Decision Making Medical Decision Making: At 10:15 --Crisis evaluation ordered. <Drew Spivey - Last Filed: 07/27/18 10:28> Medical Decision Making: Accession No. : [id number] Patient Name / ID : LINA PINO / [id number] Exam Date : 07/27/2018 13:17:39 ( Approved ) Study Comment : Sex / Age : M / 72Y Creator : Justen Warren MD Dictator : Justen Warren MD Feltmaker And Weigher : Hyperbaric Tech : Justen Warren MD Approver2 : Report Date : 07/27/2018 13:54:52 My Comment : Date of service: 07/27/2018 HISTORY: Medical clearance COMPARISON: 12/21/2017 FINDINGS: LUNGS: No active pulmonary disease. PLEURA: No significant pleural effusion identified, no pneumothorax apparent. CARDIOVASCULAR: No atherosclerotic calcification present Normal. OSSEOUS STRUCTURES: No significant abnormalities. VISUALIZED UPPER ABDOMEN: Normal. OTHER FINDINGS: Hiatal hernia. Finding confirmed on prior CT scan 01/25/2018. IMPRESSION: No active disease. No significant interval change compared to the prior examination(s). MEDICAL CLEARANCE: Pt medically cleared for psychiatric evaluation. <Rama Goodwin - Last Filed: 07/27/18 15:44> Disposition <Drew Spivey - Last Filed: 07/27/18 10:28> - Patient ED Disposition Is Patient to be Admitted: Yes - Disposition Disposition Time: 15:44 - Pt Status Changed To: Hospital Disposition Of: Inpatient - Admit Certification Admit to Inpatient:: After my assessment, the patient will require hospitalization for at least two midnights. This is because of the severity of symptoms shown, intensity of services needed, and/or the medical risk in this patient being treated as an outpatient. - POA Present On Arrival: None <Rama Goodwin - Last Filed: 07/27/18 15:44> - Clinical Impression Clinical Impression: Schizoaffective disorder - Disposition Condition: STABLE
--- NOTE | 2018-07-27 13:59 | RAD ---
Date of service: 07/27/2018 HISTORY: Medical clearance COMPARISON: 12/21/2017 FINDINGS: LUNGS: No active pulmonary disease. PLEURA: No significant pleural effusion identified, no pneumothorax apparent. CARDIOVASCULAR: No atherosclerotic calcification present Normal. OSSEOUS STRUCTURES: No significant abnormalities. VISUALIZED UPPER ABDOMEN: Normal. OTHER FINDINGS: Hiatal hernia. Finding confirmed on prior CT scan 01/25/2018. IMPRESSION: No active disease. No significant interval change compared to the prior examination(s).
[2018-07-27 14:20] LABS: BASO # 0.1 K/uL (0.0-0.2); EOS # 0.1 K/uL (0.0-0.7); EOS % 2.2 % (0.0-4.0); HEMOGLOBIN 10.5 g/dL (12.0-18.0); LYMPH # 1.7 K/uL (1.0-4.3); MEAN CELL VOLUME 80.3 fl (80.0-94.0); MEAN CORPUSCULAR HEMOGLOBIN 26.2 pg (27.0-31.0); MEAN CORPUSCULAR HGB CONC 32.6 g/dL (33.0-37.0); MEAN PLATELET VOLUME 7.3 fl (7.2-11.7); MONO # 0.6 K/uL (0.0-0.8); MONO % 9.4 % (0.0-10.0); NEUT # 4.2 K/uL (1.8-7.0); NEUT % 62.4 % (50.0-75.0); NRBC % 0.1 % (0.0-0.0); RBC 4.03 Mil/uL (4.40-5.90); RED CELL DISTRIBUTION WIDTH 16.2 % (11.5-14.5); URINE BILIRUBIN NEGATIVE (NEGATIVE); URINE BLOOD NEGATIVE (NEGATIVE); URINE CLARITY CLEAR (Clear); URINE COLOR STRAW (YELLOW); URINE GLUCOSE (UA) NEG (NEGATIVE); URINE LEUKOCYTE ESTERASE NEG Leu/uL (Negative); URINE PROTEIN NEGATIVE (NEGATIVE); URINE UROBILINOGEN 0.2-1.0 mg/dL (0.2-1.0); WHITE BLOOD COUNT 6.8 K/uL (4.8-10.8)
[2018-07-27 14:36] LABS: ALB/GLOB RATIO 1.2 (1.0-2.1); ALBUMIN 4.1 g/dL (3.5-5.0); ALT/SGPT 24 U/L (21-72); AST/SGOT 22 U/L (17-59); BARBITURATES, UR NEGATIVE (NEGATIVE); BENZODIAZEPINES, UR NEGATIVE (NEGATIVE); BLOOD UREA NITROGEN 15 mg/dl (9-20); CALCIUM 8.9 mg/dL (8.4-10.2); GFR NON-AFRICAN AMERICAN > 60; OPIATES, UR NEGATIVE (NEGATIVE); PHENCYCLIDINE, UR NEGATIVE (NEGATIVE)
[2018-07-27 17:33] VITALS: RESP 18; O2SAT 99
--- NOTE | 2018-07-27 18:07 | CARD ---
APPROVED REPORT Date of service: 07/27/2018 EKG Measurement Heart [id number] <Conclusion> Sinus tachycardia Otherwise normal ECG
--- NOTE | 2018-07-27 20:08 | PCM.BM ---
<Deepak Franks - Last Filed: 07/27/18 20:06> Treatment Plan Problems - Problems identified on initial assessmt Agitated/aggressive behavior Date Initiated: 07/27/18 Time Initiated: 20:06 Assessment reference: NA Status: Active Priority: 1 Anxiety Date Initiated: 07/27/18 Time Initiated: 20:06 Assessment reference: NA Status: Active Priority: 2 Social Isolation Date Initiated: 07/27/18 Time Initiated: 20:06 Assessment reference: NA Status: Active Priority: 3 Self Care Deficit Date Initiated: 07/27/18 Time Initiated: 20:07 Assessment reference: NA Status: Active Priority: 4 Altered Thought Process Date Initiated: 07/27/18 Time Initiated: 20:07 Assessment reference: NA Status: Active Priority: 5 Altered Sleep Patterns Date Initiated: 07/27/18 Time Initiated: 20:07 Assessment reference: NA Status: Active Priority: 6 Feelings of Worthlessness Date Initiated: 07/27/18 Time Initiated: 20:08 Assessment reference: NA Status: Active Priority: 7 - Milieu Protocol Maintain good personal hygiene: daily Encourage regular showers, daily Remind patient to perform daily oral care, daily Assist patient to perform ADL's Conduct patient checks and document Observation sheet: Q15 minutes Maintain personal safety: every shift Educate patient to report safety concerns to staff, every shift Monitor environment for contraband/sharps Medication safety: Monitor for expected outcome, potential side effects: every shift, Assess barriers to learning: every shift, Assess readiness for medication education: every shift <Evelia Ware - Last Filed: 07/28/18 10:10> - Diagnosis (1) Schizoaffective disorder Status: Acute Interventions: Medication management, Individual and group therapy, Psychoeducation 07/28/18 10:09
[2018-07-27] MEDS ORDERED: Fluticasone-Salmeterol 250-50mcg Diskus IH SCH (21:00)
[2018-07-27] MEDS ORDERED: Divalproex 500 mg DR(BID formulation) PO SCH (21:00)
[2018-07-27] MEDS ORDERED: Magnesium Hydroxide Susp 30 ml UD PO PRN (21:39)
[2018-07-27] MEDS ORDERED: Bismuth Subsalicylate 262 mg/15 ml Sus (240 ml) PO PRN (21:39)
[2018-07-27] MEDS ORDERED: Alum-Mag Hydrox-Simethicone Susp (30 mL) PO PRN (21:39)
[2018-07-27] MEDS ORDERED: Divalproex 250 mg DR(BID formulation) PO SCH (22:00)
[2018-07-27] MEDS: FLUTICASONE PROPION/SALMETEROL 113-14 IH SCH (22:14)
[2018-07-27] MEDS: Pravastatin Sodium 40 MG TAB PO SCH (22:16)
[2018-07-27] MEDS: Insulin Regular 100 units/ml SC SCH (22:17)
[2018-07-27] MEDS: Naproxen 500 MG TAB PO SCH (22:23)
[2018-07-28 07:25] LABS: FERRITIN 7.5 ng/Ml (17.9-464)
[2018-07-28] MEDS: FLUTICASONE PROPION/SALMETEROL 113-14 IH SCH ×2 (08:41→21:18)
[2018-07-28] MEDS: Naproxen 500 MG TAB PO SCH ×2 (08:43→16:26)
[2018-07-28] MEDS: Insulin Regular 100 units/ml SC SCH ×4 (08:46→22:06)
[2018-07-28] MEDS ORDERED: Pantoprazole 40 mg EC Tab PO SCH (09:00)
[2018-07-28] MEDS ORDERED: Pneumococcal 23-Valent Vaccine IM ONE (09:00)
--- NOTE | 2018-07-28 10:09 | PCM.PSYCH ---
Initial Psychiatric Evaluation - Initial Psychiatric Evaluation Type of Admission: Voluntary Legal Status: Capacity Chief Complaint (in patient's own words): "I'm so nervous." Patient's Reaction to Hospitalization: HPI: 72 yo male w/ h/o Schizoaffective disorder, presents w/ worsening bizarre behavior, agitation towards his family, worsening depression and anxiety, mood lability, sleep/appetite disturbances. Patient currently has poor insight into his recent behaviors. He states that he is here because he feels "nervous." He admitted to engineering technical writer that he has had poor compliance with his night time medications (Depakote and Seroquel). He denies acute AH/VH/SI/HI to engineering technical writer. Additional collateral from the ER CW note: "Driver License Reviewing Officer received collateral information from patient's spouse who stated that patient had been agitated for the past 3 days, patient had been yelling and very agitated speaking about his parents and about her mother. Patient states that his spouse is not born from a "tree" and gets upset about her not trying to search for her biological mother. Patient had been agitated and screaming, cursing and repeating the same statement over and over as per his spouse. Ms. Jarquin stated that this morning she told patient to wait for her because they were going to her doctor, he left without her and took the bus that takes them to [facility] Patient was found by police at [facility], yelling and agitated in the street. CW contacted patient's son Nii Jarquin, . Mr. Jarquin stated that patient had been depressed and anxious. Patient made a suicidal statement a couple of days ago stating that he wanted to jump in front of a car. Mr. Jarquin stated that he believes that his father need admission." Past Psych Hx: Multiple past psychiatric admissions, most recent to [facility] in 2017. History of one suicide attempt by jumping in front of a car. No legal h/o. No h/o abuse/trauma. FHx: Denies family hx mental illness PMHx: Asthma, COPD, PD, Emphysema, HTN, HLD, DM, Gastritis, CAD Social Hx: No Etoh/drug/cig use. From [place]. 3 sisters and 6 brothers. Studied up to high school. 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 Lives with . Has 3 sons Current Medications: Active Medications Generic Name Dose Route Start Last Admin Trade Name Freq PRN Reason Stop Dose Admin Acetaminophen 650 mg 07/27/18 21:39 Tylenol 325mg Tab PO Q4 PRN Pain, moderate (4-7) Al Hydrox/Mg Hydrox/Simethicone 30 ml 07/27/18 21:39 Maalox Plus 30 Ml PO Q4 PRN Dyspepsia Aspirin 81 mg 07/28/18 09:00 07/28/18 08:45 Ecotrin PO 81 mg DAILY [facility] Administration Bismuth Subsalicylate 524 mg 07/27/18 21:39 Pepto-Bismol PO Q4 PRN Diarrhea Carbidopa/Levodopa 1 tab 07/28/18 06:00 07/28/18 06:04 Sinemet PO 1 tab Q8H [facility] Administration Gabapentin 100 mg 07/28/18 06:00 07/28/18 06:04 Neurontin PO 100 mg Q8H [facility] Administration Home Med 1 cap 07/27/18 21:00 Dextromethorphan Hbr/Quinidine [Nuedexta 20-10 Mg Capsule] PO Q12 [facility] Insulin Human Regular 0 units 07/27/18 23:00 07/28/18 08:46 Humulin R SC Not Given ACCU-CHECK [facility] Protocol Lorazepam 0.5 mg 07/27/18 21:39 Ativan PO 08/10/18 21:40 HS PRN Insomnia Lorazepam 0.5 mg 07/27/18 21:39 Ativan PO 08/10/18 21:40 Q6 PRN Anixety/Agitation Losartan Potassium 25 mg 07/28/18 09:00 07/28/18 08:44 Cozaar PO 25 mg DAILY [facility] Administration Magnesium Hydroxide 30 ml 07/27/18 21:39 Milk Of Magnesia PO HS PRN Constipation Metformin HCl 1,000 mg 07/27/18 21:00 07/28/18 08:40 Glucophage PO 1,000 mg BID [facility] Administration Metoprolol Tartrate 50 mg 07/28/18 09:00 07/28/18 08:43 Lopressor PO 50 mg DAILY [facility] Administration Naproxen 500 mg 07/27/18 21:00 07/28/18 08:43 Naproxen PO 500 mg BID [facility] Administration Pantoprazole Sodium 40 mg 07/28/18 09:00 07/28/18 08:44 Protonix Ec Tab PO 40 mg DAILY [facility] Administration Pravastatin Sodium 40 mg 07/27/18 22:00 07/27/18 22:16 Pravachol PO 40 mg HS [facility] Administration Tamsulosin HCl 0.4 mg 07/27/18 22:00 07/27/18 22:15 Flomax PO 0.4 mg HS [facility] Administration Past Psychiatric History - Past Psychiatric History Previous Treatment History: Inpatient Pertinent Medical Hx (Current Medical&Sleep Prob, Allergies): Allergies Allergy/AdvReac Type Severity Reaction Status Date / Time No Known Allergies Allergy Verified 06/16/18 23:46 Aspirin [Ecotrin] 81 mg PO DAILY 07/03/16 Carbidopa/Levodopa [Carbidopa-Levodopa 25-100 Tab] 1 tab PO Q8 07/03/16 Dextromethorphan HBr/Quinidine [Nuedexta 20-10 mg Capsule] 1 cap PO Q12 07/03/16 Fluticasone/Salmeterol 250/50 [Advair Diskus 250/50] 1 puff IH Q12H 07/03/16 Gabapentin [Neurontin] 100 mg PO Q8 07/03/16 MetFORMIN [glucoPHAGE] 1,000 mg PO BID 07/03/16 Metoprolol Tartrate [Lopressor] 50 mg PO DAILY 07/03/16 Pantoprazole Sodium [Protonix] 40 mg PO DAILY 07/03/16 Pravastatin Sodium [Pravachol] 40 mg PO HS 07/03/16 clonazePAM [Klonopin] 0.5 mg PO Q12 tab 09/30/16 Divalproex [Depakote DR(*BID*)] 250 mg PO HS 07/27/18 Divalproex [Depakote DR] 500 mg PO Q12 07/27/18 Losartan [Cozaar] 25 mg PO DAILY 07/27/18 Naproxen [Naprosyn] 500 mg PO BID 07/27/18 Quetiapine Fumarate [Seroquel] 400 mg PO HS 07/27/18 Tamsulosin [Flomax] 0.4 mg PO HS 07/27/18 Zolpidem [Ambien] 5 mg PO HS 07/27/18 Review of Systems - Psychiatric Psychiatric: As Per HPI, Abnormal Sleep Pattern, Anxiety, Behavioral Changes, Change in Appetite, Difficulty Concentrating, Irritability, Mood Swings, Suicidal Ideation Mental Status Examination - Personal Presentation Personal Presentation: Looks stated age - Affect Affect: Other (Labile) - Motor Activity Motor Activity: Psychomotor Agitation - Reliability in Providing Information Reliability in Providing Information: Poor, due to alteration in thoughts, Poor, due to cognitve impairment - Speech Speech: Tangential - Mood Mood: Anxious - Formal Thought Process Formal Thought Process: Loosening of associations, Circumstantial - Hallucinations/Delusions Additional comments: Denies AH/VH - Obsessions/Compulsions Obsessions: No Compulsions: No - Cognitive Functions Orientation: Person, Place, Situation, Time Sensorium: Alert Estimate of Intelligence: Average Judgement: Imparied, as evidence by: Poor judgement, Imparied, as evidence by: Lack of insight into illness - Risk Risk: Diminished functioning - Strength & Assets Inventory Strength & Assets Inventory: Family support, Cooperative - Limitations Limitations: Decreased memory, recent DSM 5 DX - DSM 5 DSM 5 Diagnosis: Schizoaffective Disorder - Recommended/Plan of Treatment Treatment Recommendations and Plan of Treatment: Schizoaffective Disorder -Admit to psychiatry unit -Individual and group therapy -Psychoeducation -Obtain collateral history -Restart Depakote, Klonopin and Seroquel -Medicine consult -Disposition planning Projected ELOS: 5-10 days Discharge Plan and Discharge Criteria: Discharge when patient is psychiatrically stable - Smoking Cessation Smoking Cessation Initiated: No Reason for not providing: Not indicated
[2018-07-28] MEDS ORDERED: Divalproex 500 mg DR(BID formulation) PO SCH ×2 (10:15→10:45)
[2018-07-28 12:36] LABS: FOLATE 16.5 ng/mL
[2018-07-28 16:16] VITALS: BP 100/61; PULSE 75; TEMP 97.9
[2018-07-28] MEDS: Pravastatin Sodium 40 MG TAB PO SCH (21:18)
[2018-07-28] MEDS ORDERED: Divalproex 250 mg DR(BID formulation) PO SCH ×2 (22:00)
--- NOTE | 2018-07-29 13:35 | PCM.PYCHDC ---
Discharge Summary - Discharge Note Reason for Hospitalization: HPI: 72 yo male w/ h/o Schizoaffective disorder, presents w/ worsening bizarre behavior, agitation towards his family, worsening depression and anxiety, mood lability, sleep/appetite disturbances. Patient currently has poor insight into his recent behaviors. He states that he is here because he feels "nervous." He admitted to commercial lines underwriter that he has had poor compliance with his night time medications (Depakote and Seroquel). He denies acute AH/VH/SI/HI to commercial lines underwriter. Additional collateral from the ER CW note: "[employer] received collateral information from patient's spouse who stated that patient had been agitated for the past 3 days, patient had been yelling and very agitated speaking about his parents and about her mother. Patient states that his spouse is not born from a "tree" and gets upset about her not trying to search for her biological mother. Patient had been agitated and screaming, cursing and repeating the same statement over and over as per his spouse. Ms. Jarquin stated that this morning she told patient to wait for her because they were going to her doctor, he left without her and took the bus that takes them to [facility] Patient was found by police at [facility], yelling and agitated in the street. CW contacted patient's son Nii Jarquin, . Mr. Jarquin stated that patient had been depressed and anxious. Patient made a suicidal statement a couple of days ago stating that he wanted to jump in front of a car. Mr. Jarquin stated that he believes that his father need admission." Past Psych Hx: Multiple past psychiatric admissions, most recent to [facility] in 2017. History of one suicide attempt by jumping in front of a car. No legal h/o. No h/o abuse/trauma. FHx: Denies family hx mental illness PMHx: Asthma, COPD, PD, Emphysema, HTN, HLD, DM, Gastritis, CAD Social Hx: No Etoh/drug/cig use. From [place]. 3 sisters and 6 brothers. Studied up to high school. 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 Lives with . Has 3 sons Laboratory Data: Abnormal Lab Results 07/28/18 07/28/18 07/28/18 06:15 15:58 20:08 POC Glucose (mg/dL) 113 H 139 H RPR Nonreactive 07/29/18 03:37 POC Glucose (mg/dL) 144 H RPR Consultations:: List each consultation separately and include: 1. Reason for request. 2. Findings. 3. Follow-up Summary of Hospital Course include:: 1. Description of specific treatment plan utilized for patients during their course of treatmen. 2. Summarize the time- course for resolution of acute symptoms and/or regressed behaviors. 3. Describe issues identified and worked on during hospitalization. 4. Describe medication utilized. 5. Describe medical problems identified and treated. 6. Reassessment of suicide risk Summary of Hospital Course: Patient discharged overnight to the ER for medical emergency - Diagnosis (1) Schizoaffective disorder Status: Chronic - Final Diagnosis (DSM 5) Condition upon Discharge: STABLE DSM 5: Schizoaffective Disorder Disposition: Still A Patient Follow-up Treatment Plan: Patient discharged overnight to the ER for medical emergency
== END 2018-07-29 04:38 | disposition short-term general hospital (02) | DRG 885 ==
LOC: H.ER 09:35 → H.ERHOLD 15:44 → H.STEP 18:23
PROVIDERS: ADMIT Psychiatry & Neurology Psychiatry; ATTEND Psychiatry & Neurology Psychiatry
PROC: GZHZZZZ Group Psychotherapy (ICD-10-PCS; principal; 2018-07-28)
PROC: 3E0234Z Introduction of Serum, Toxoid and Vaccine into Muscle, Percutaneous Approach (ICD-10-PCS; 2018-07-28)
DX: F25.9 Schizoaffective disorder, unspecified (principal); E11.9 Type 2 diabetes mellitus without complications; E78.5 Hyperlipidemia, unspecified; J43.9 Emphysema, unspecified; Z79.82 Long term (current) use of aspirin; I25.10 Atherosclerotic heart disease of native coronary artery without angina pectoris; Z23 Encounter for immunization; F31.9 Bipolar disorder, unspecified; F02.80 Dementia in other diseases classified elsewhere, unspecified severity, without behavioral disturbance, psychotic disturbance, mood disturbance, and anxiety; E78.00 Pure hypercholesterolemia, unspecified; K29.70 Gastritis, unspecified, without bleeding; I10 Essential (primary) hypertension; G40.909 Epilepsy, unspecified, not intractable, without status epilepticus; Z79.84 Long term (current) use of oral hypoglycemic drugs; G20 Parkinson's disease; I48.91 Unspecified atrial fibrillation

== ENCOUNTER 2018-07-29 04:38 | Observation (INO) | payer MEDICARE, OTHER ==
[2018-07-29 04:42] VITALS: BMI 53.8
[2018-07-29] MEDS ORDERED: Sodium Chloride 0.9% 1,000 ML IV SCH (04:45)
--- NOTE | 2018-07-29 05:10 | ED PDOC ---
HPI: Altered Mental Status Time Seen by Provider: 07/29/18 04:40 Chief Complaint (Nursing): Weakness/Neurological Deficit Chief Complaint (Provider): altered mental status History Per: Patient, Other (nurse from [facility]) History/Exam Limitations: Clinical Condition Onset/Duration Of Symptoms: Hrs (1.5x) Onset Of Symptoms: <3 Hours Current Symptoms Are (Timing): Still Present Description Of Symptoms: Other (drowsy) Usual Baseline: Alert Oriented Severity: Moderate Additional Complaint(s): 72 year old male with schizophrenia, depression, and dementia brought down from [facility] for altered mental status. Patient was last known well 6.5x hours prior to arrival just before he went to sleep. Patient woke up 1.5x hours prior to arrival and was noted to be confused with possible right sided facial droop. Patient noted to be moving all extremities equally. Of note: Patient is on several psychiatric medications. PMD: None provided NIHSS Stroke Scale - Date/Time Evaluation Performed Date Performed: 07/29/18 Time Performed: 04:45 When Was NIHSS Performed: Baseline - How Severe is the Stroke Level of Consciousness: 1=Drowsy LOC to Questions: 0=Both comments correct LOC to commands: 0=Obeys both correctly Best Gaze: 0=Normal Visual: 0=No visual loss Facial: 1=Minor asymmetry Motor Arm - Left: 0=No drift Motor Arm - Right: 0=No drift Motor Leg - Left: 0=No drift Motor Leg - Right: 0=No drift Limb Ataxia: 0=Absent Sensory: 0=Normal Best Language: 0=No aphasia Dysarthia: 1=Mild to moderate slurring Extinction & Inattention (Neglect): 0=Normal, no object Score: 3 Past Medical History Reviewed: Historical Data, Nursing Documentation, Vital Signs Vital Signs: Last Vital Signs Temp 98 F 07/29/18 04:42 Pulse 92 H 07/29/18 04:42 Resp 17 07/29/18 04:42 BP 100/70 07/29/18 04:42 Pulse Ox 96 07/29/18 04:42 LAZARUS Report Viewed: Yes - Medical History PMH: Anxiety, Asthma, Atrial Fibrillation, Bipolar Disorder, COPD, Dementia (with behavioral disturbances), Depression, Diabetes, Diverticulitis, Emphysema, Gastritis, Gall Bladder Disease, Hypercholesterolemia, Parkinson's Disease, Schizophrenia Denies: Hepatitis, HIV, HTN, Kidney Stones, Chronic Kidney Disease, Seizures, Sexually Transmitted Disease - Surgical History Surgical History: Appendectomy, Hernia Repair (ventral) - Family History Family History: States: No Known Family Hx - Immunization History Hx Tetanus Toxoid Vaccination: No Hx Influenza Vaccination: No Hx Pneumococcal Vaccination: No - Home Medications Home Medications: Ambulatory Orders Medication Instructions Recorded Aspirin [Ecotrin] 81 mg PO DAILY 07/03/16 Carbidopa/Levodopa 1 tab PO Q8 07/03/16 [Carbidopa-Levodopa 25-100 Tab] Dextromethorphan HBr/Quinidine 1 cap PO Q12 07/03/16 [Nuedexta 20-10 mg Capsule] Fluticasone/Salmeterol 250/50 1 puff IH Q12H 07/03/16 [Advair Diskus 250/50] Gabapentin [Neurontin] 100 mg PO Q8 07/03/16 MetFORMIN [glucoPHAGE] 1,000 mg PO BID 07/03/16 Metoprolol Tartrate [Lopressor] 50 mg PO DAILY 07/03/16 Pantoprazole Sodium [Protonix] 40 mg PO DAILY 07/03/16 Pravastatin Sodium [Pravachol] 40 mg PO HS 07/03/16 clonazePAM [Klonopin] 0.5 mg PO Q12 tab 09/30/16 Divalproex [Depakote DR(*BID*)] 250 mg PO HS 07/27/18 Divalproex [Depakote DR] 500 mg PO Q12 07/27/18 Losartan [Cozaar] 25 mg PO DAILY 07/27/18 Naproxen [Naprosyn] 500 mg PO BID 07/27/18 Quetiapine Fumarate [Seroquel] 400 mg PO HS 07/27/18 Tamsulosin [Flomax] 0.4 mg PO HS 07/27/18 Zolpidem [Ambien] 5 mg PO HS 07/27/18 - Allergies Allergies/Adverse Reactions: Allergies Allergy/AdvReac Type Severity Reaction Status Date / Time No Known Allergies Allergy Verified 07/29/18 04:44 Review of Systems ROS Statement: Except As Marked, All Systems Reviewed And Found Negative Neurological: Positive for: Other (confused, right sided facial droop) Physical Exam - Reviewed Nursing Documentation Reviewed: Yes Vital Signs Reviewed: Yes - Physical Exam Appears: Positive for: Non-toxic, No Acute Distress. Negative for: Well (drowsy, falling asleep easily) Head Exam: Positive for: ATRAUMATIC, NORMOCEPHALIC Skin: Positive for: Normal Color, Warm, Dry Cardiovascular/Chest: Positive for: Regular Rate, Rhythm Respiratory: Positive for: Normal Breath Sounds Neurological/Psych: Positive for: Awake (drowsy), Cerebellar Tests (normal), Facial Droop (possible right sided facial droop), Other (moving all extremities equally, (-) pronator drift.) - Laboratory Results Result Diagrams: 07/29/18 05:00 07/29/18 05:00 - ECG O2 Sat by Pulse Oximetry: 96 (RA) Pulse Ox Interpretation: Normal - Core Measure Core Measure Indicators: Code Stroke - Critical Care Total Time (In Min): 60 Documented Critical Care: Time excludes all time spent performint seperately billable procedures Medical Decision Making Medical Decision Makin:40 Initial impression: 72 year old male with possible CVA, though patient is out of treatment window for TPA. Possible over-sedation with psychiatric medications. Initial plan: * code stroke * CT head w/o contrast * XRay chest * EKG * type and screen * CMP * hemoglobin * lipid panel * troponin I * CBC with differential * PT/PTT * glucose * IV NS 1,000 ml IV 100 mls/hr * reevaluation 545 No changes in mental/neuro status Will get neurology consultation and admit to Dr. Gregorio's service Patient failed swallow eval, cannot give ASA Scribe Attestation: Documented by Ying Cordero, acting as a scribe for Armen Liang MD. Provider Scribe Attestation: All medical record entries made by the Scribe were at my direction and personally dictated by me. I have reviewed the chart and agree that the record accurately reflects my personal performance of the history, physical exam, medical decision making, and the department course for this patient. I have also personally directed, reviewed, and agree with the discharge instructions and disposition. Disposition - Clinical Impression Clinical Impression: Weakness - Patient ED Disposition Is Patient to be Admitted: Yes Counseled Patient/Family Regarding: Studies Performed - Disposition Disposition Time: 05:45 Condition: FAIR Instructions: Weakness (ED) Forms: [employer] (Nepali)
[2018-07-29 05:25] LABS: BASO # 0.1 K/uL (0.0-0.2); BASO % 1.5 % (0.0-2.0); EOS # 0.3 K/uL (0.0-0.7); EOS % 3.9 % (0.0-4.0); HEMOGLOBIN 10.3 g/dL (12.0-18.0); INR 1.2; LYMPH # 1.5 K/uL (1.0-4.3); LYMPH % 16.8 % (20.0-40.0); MEAN CELL VOLUME 81.4 fl (80.0-94.0); MEAN CORPUSCULAR HEMOGLOBIN 26.3 pg (27.0-31.0); MEAN CORPUSCULAR HGB CONC 32.3 g/dL (33.0-37.0); MEAN PLATELET VOLUME 7.6 fl (7.2-11.7); MONO # 0.7 K/uL (0.0-0.8); MONO % 7.6 % (0.0-10.0); NEUT # 6.2 K/uL (1.8-7.0); NEUT % 70.2 % (50.0-75.0); NRBC % 0.1 % (0.0-0.0); PROTHROMBIN TIME 13.3 Seconds (9.8-13.1); RBC 3.91 Mil/uL (4.40-5.90); RED CELL DISTRIBUTION WIDTH 16.6 % (11.5-14.5); WHITE BLOOD COUNT 8.9 K/uL (4.8-10.8)
[2018-07-29 05:28] LABS: PARTIAL THROMBOPLASTIN TIME 28.9 Seconds (25.6-37.1)
[2018-07-29 05:35] LABS: ALB/GLOB RATIO 1.1 (1.0-2.1); ALBUMIN 3.7 g/dL (3.5-5.0); ALT/SGPT 13 U/L (21-72); AST/SGOT 21 U/L (17-59); BLOOD UREA NITROGEN 22 mg/dl (9-20); CALCIUM 9.3 mg/dL (8.4-10.2); GFR NON-AFRICAN AMERICAN > 60; HDL CHOLESTEROL 41 MG/DL (30-70)
[2018-07-29 05:43] LABS: LDL CHOLESTEROL 90 mg/dL (0-129)
--- NOTE | 2018-07-29 07:52 | CT ---
Date of service: 07/29/2018 PROCEDURE: CT HEAD WITHOUT CONTRAST. HISTORY: TIA, initial exam COMPARISON: 02/11/2018 TECHNIQUE: Axial computed tomography images were obtained through the head/brain without intravenous contrast. Radiation dose: Total exam DLP = 834.02 mGy-cm. This CT exam was performed using one or more of the following dose reduction techniques: Automated exposure control, adjustment of the mA and/or kV according to patient size, and/or use of iterative reconstruction technique. FINDINGS: HEMORRHAGE: No intracranial hemorrhage. BRAIN: No mass effect or edema. Generalized cerebral atrophy similar-appearing Bilateral fairly symmetrical periventricular hypodensity.-similar-appearing Bilateral subcortical and deep white matter hypodensity compatible with chronic microvascular ischemic changes; also similar appearing. VENTRICLES: Unremarkable. No hydrocephalus. CALVARIUM: Unremarkable. PARANASAL SINUSES: Left maxillary lobulated mucosal thickening. Chronic mucosal hyperplasia/chronic sinusitis along with retention cyst (or underlying polyps inferred.) Mild chronic appearing ethmoidal sinus inflammation/sinusitis. MASTOID AIR CELLS: Unremarkable as visualized. No inflammatory changes. OTHER FINDINGS: Cavernous internal carotid arterial vascular calcifications-similar IMPRESSION: No interval intracranial hemorrhage or mass effect. Cerebral atrophy [id number]. Bilateral periventricular, subcortical and deep white matter hypodensities-as detailed above; similar appearing. Chronic microvascular ischemic changes inferred. Atherosclerotic vascular calcifications.Findings appear similar Chronic sinusitis Concordant results (preliminary interpretation) provided by [facility].
--- NOTE | 2018-07-29 08:06 | RAD ---
Date of service: 07/29/2018 HISTORY: Code Stroke COMPARISON: 2018 TECHNIQUE: 1 view obtained. FINDINGS: LUNGS: No active pulmonary disease. PLEURA: No significant pleural effusion identified, no pneumothorax apparent. CARDIOVASCULAR: No aortic atherosclerotic calcification present. Borderline cardiomegaly. No pulmonary vascular congestion. OSSEOUS STRUCTURES: Thoraco lumbar spondylosis. Mild bilateral shoulder arthrosis VISUALIZED UPPER ABDOMEN: Normal. OTHER FINDINGS: Large hiatal hernia IMPRESSION: No active disease. Other findings as above.
[2018-07-29] MEDS: Aspirin 325 mg EC Tablets PO SCH (10:54)
--- NOTE | 2018-07-29 11:49 | CARD ---
APPROVED REPORT Date of service: 07/29/2018 EKG Measurement Heart [id number] <Conclusion> Normal sinus rhythm Normal ECG
--- NOTE | 2018-07-29 15:48 | CP.PCM.CON ---
History of Present Illness - History of Present Illness History of Present Illness: Neurology Consultation Note: Consult requested by Dr. Gregorio Mr. Jarquin is a 72-year-old man with a past medical history of dementia, sc hizophrenia, Parkinson's diseaes, DM, who was noted to be more confused upon waking up yesterday. The last time he was at his baseline was about 6.5 hours earlier when he went to sleep. There was a possible right side facial droop noted as well. CT scan of the head showed chronic ischemic changes, but no acute findings. He was not a candidate for IV tPA due to being outside the 4.5 hour time window. Review of Systems - Review of Systems Systems not reviewed;Unavailable: Altered Mental Status Past Patient History - Infectious Disease Hx of Infectious Diseases: None - Tetanus Immunizations Tetanus Immunization: Unknown - Past Medical History & Family History Past Medical History?: Yes - Past Social History Smoking Status: Smoker Currrent Status Unknown - CARDIAC Hx Cardiac Disorders: Yes Hx Hypercholesterolemia: Yes - PULMONARY Hx Respiratory Disorders: Yes Hx Chronic Obstructive Pulmonary Disease (COPD): Yes - NEUROLOGICAL Hx Neurological Disorder: Yes Hx Dementia: Yes Hx Parkinson's Disease: Yes - HEENT Hx HEENT Problems: No - RENAL Hx Chronic Kidney Disease: No - ENDOCRINE/METABOLIC Hx Endocrine Disorders: Yes Hx Diabetes Mellitus Type 2: Yes - HEMATOLOGICAL/ONCOLOGICAL Hx AIDS: No Hx Human Immunodeficiency Virus (HIV): No - INTEGUMENTARY Hx Dermatological Problems: No - MUSCULOSKELETAL/RHEUMATOLOGICAL Hx Musculoskeletal Disorders: No Hx Falls: No - GASTROINTESTINAL Hx Diverticulitis: Yes Hx Gall Bladder Disease: Yes Hx Gastritis: Yes - GENITOURINARY/GYNECOLOGICAL Hx Sexually Transmitted Disorders: No - PSYCHIATRIC Hx Psychophysiologic Disorder: Yes Hx Bipolar Disorder: Yes Hx Depression: Yes Hx Schizophrenia: Yes Hx Substance Use: No - SURGICAL HISTORY Hx Appendectomy: Yes Hx Cholecystectomy: Yes - ANESTHESIA Hx Anesthesia: Yes Hx Anesthesia Reactions: No Hx Malignant Hyperthermia: No Meds Allergies/Adverse Reactions: Allergies Allergy/AdvReac Type Severity Reaction Status Date / Time No Known Allergies Allergy Verified 07/29/18 04:44 - Medications Medications: Current Medications Aspirin (Ecotrin) 325 mg PO DAILY [facility] Last Admin: 07/29/18 10:54 Dose: 325 mg Carbidopa/Levodopa (Sinemet) 1 tab PO Q8 [facility] Last Admin: 07/29/18 10:56 Dose: 1 tab Losartan Potassium (Cozaar) 25 mg PO DAILY [facility] Metoprolol Tartrate (Lopressor) 50 mg PO DAILY WILLIAM Tamsulosin HCl (Flomax) 0.4 mg PO HS WILLIAM Physical Exam - Constitutional Appears: Well - Head Exam Head Exam: ATRAUMATIC, NORMAL INSPECTION, NORMOCEPHALIC - Eye Exam Eye Exam: EOMI, Normal appearance, PERRL Pupil Exam: NORMAL ACCOMODATION, PERRL - ENT Exam ENT Exam: Mucous Membranes Moist, Normal Exam - Neck Exam Neck exam: Positive for: Normal Inspection - Respiratory Exam Respiratory Exam: Clear to Auscultation Bilateral, NORMAL BREATHING PATTERN - Cardiovascular Exam Cardiovascular Exam: REGULAR RHYTHM, +S1, +S2 - GI/Abdominal Exam GI & Abdominal Exam: Normal Bowel Sounds, Soft. absent: Tenderness - Extremities Exam Extremities exam: Positive for: normal inspection - Back Exam Back exam: NORMAL INSPECTION - Neurological Exam Neurological exam: Abnormal Gait, Alert, Altered, CN II-XII Intact, Reflexes Normal Additional comments: Confused. Does not answer questions appropriately. Follows some simple commands. Moves all extremities, no facial droop noted. NIHSS 2 - Psychiatric Exam Psychiatric exam: Normal Affect, Normal Mood - Skin Skin Exam: Dry, Intact, Normal Color, Warm Results - Vital Signs Recent Vital Signs: Last Vital Signs Temp 98.0 F 07/29/18 08:04 Pulse 93 H 07/29/18 14:55 Resp 20 07/29/18 08:04 BP 121/72 07/29/18 08:04 Pulse Ox 99 07/29/18 08:04 - Labs Result Diagrams: 07/29/18 05:00 07/29/18 05:00 Labs: Laboratory Results - last 24 hr 07/29/18 07/29/18 07/29/18 05:00 05:00 05:00 WBC 8.9 RBC 3.91 L Hgb 10.3 L Hct 31.8 L MCV 81.4 MCH 26.3 L MCHC 32.3 L RDW 16.6 H Plt Count 292 MPV 7.6 Neut % (Auto) 70.2 Lymph % (Auto) 16.8 L Gilliam % (Auto) 7.6 Eos % (Auto) 3.9 Baso % (Auto) 1.5 Neut # (Auto) 6.2 Lymph # (Auto) 1.5 Gilliam # (Auto) 0.7 Eos # (Auto) 0.3 Baso # (Auto) 0.1 PT INR APTT Sodium 138 Potassium 3.7 Chloride 101 Carbon Dioxide 28 Anion Gap 13 BUN 22 H Creatinine 0.8 Est GFR ( Amer) > 60 Est GFR (Non-Af Amer) > 60 POC Glucose (mg/dL) Random Glucose 136 H Hemoglobin A1c 7.2 H Calcium 9.3 Total Bilirubin 0.4 AST 21 ALT 13 L D Alkaline Phosphatase 56 Troponin I < 0.0120 Total Protein 7.0 Albumin 3.7 Globulin 3.3 Albumin/Globulin Ratio 1.1 Triglycerides 213 H D Cholesterol 161 LDL Cholesterol Direct 90 HDL Cholesterol 41 Blood Type Antibody Screen BBK History Checked 07/29/18 07/29/18 07/29/18 05:00 05:00 05:02 WBC RBC Hgb Hct MCV MCH MCHC RDW Plt Count MPV Neut % (Auto) Lymph % (Auto) Gilliam % (Auto) Eos % (Auto) Baso % (Auto) Neut # (Auto) Lymph # (Auto) Gilliam # (Auto) Eos # (Auto) Baso # (Auto) PT 13.3 H INR 1.2 APTT 28.9 Sodium Potassium Chloride Carbon Dioxide Anion Gap BUN Creatinine Est GFR ( Amer) Est GFR (Non-Af Amer) POC Glucose (mg/dL) 131 H Random Glucose Hemoglobin A1c Calcium Total Bilirubin AST ALT Alkaline Phosphatase Troponin I Total Protein Albumin Globulin Albumin/Globulin Ratio Triglycerides Cholesterol LDL Cholesterol Direct HDL Cholesterol Blood Type A POSITIVE Antibody Screen Negative BBK History Checked Patient has bt Assessment & Plan (1) Acute encephalopathy Assessment and Plan: Could be exacerbation of dementia due to other medical conditions and low cognitive reserve. Will rule out ischemic stroke with MRI of the brain. Continue aspirin 325 mg daily. Lipitor 40 mg daily. Allow permissive HTN (only treat BP higher than 220/110 mm HG for the next 36 hours). Fluids with NS at 100 mL/hr. PT/OT eval and treatment. Check B12, folate, TSH, vitamin D levels and HbA1c. Thank you for this consultation. Status: Acute
--- NOTE | 2018-07-29 17:48 | MRI ---
Date of service: 07/29/2018 PROCEDURE: MRI BRAIN WITHOUT CONTRAST HISTORY: facial droop COMPARISON: CT head without contrast from 07/29/2018 and MRI brain without contrast from 12/09/2015 TECHNIQUE: Multiplanar, multisequence MR images of the brain were obtained without intravenous contrast enhancement. FINDINGS: HEMORRHAGE: None DWI: No evidence of an acute or early subacute infarction. BRAIN PARENCHYMA: There are severe chronic microangiopathic changes. There is no mass, mass effect or abnormal extra-axial fluid collection. There is no territorial infarction. There is an empty sella. VENTRICLES: There is moderate age-related global parenchymal volume loss and proportionate enlargement of the ventricles and cortical sulci. There is a cavum septum pellucidum. CRANIUM: There is normal bone marrow signal pattern. ORBITS: Grossly unremarkable. PARANASAL SINUSES/MASTOIDS: There is chronic left maxillary sinusitis and mild ethmoid sinusitis with retention cyst/polyp in the right mid ethmoid air cell. Small right mastoid effusion. VASCULAR SYSTEM: There are normal signal voids in the larger intracranial arteries. OTHER FINDINGS: None. IMPRESSION: No acute intracranial abnormality. Severe chronic microangiopathic changes and moderate age-related global parenchymal volume loss. Chronic left maxillary sinusitis, retention cyst/polyp in the right mid ethmoid air cells and small right mastoid effusion
--- NOTE | 2018-07-29 18:33 | HP ---
HISTORY OF PRESENT ILLNESS: Mr. Jarquin is a 72-year-old male who was admitted from the psych anne via the emergency room because of altered mental status and what appeared to be right-sided facial droop on the day of admission. The patient was originally admitted to the psychiatric anne for schizophrenia with depression and dementia and has been on multiple psychiatric medications, but was noted to have above symptoms prior to transfer to the emergency room where a workup was done revealing except for the patient being lethargic. He is now transferred to medical floor (telemetry) and seems to be more awake, more alert, and easily arousable. He is able to communicate. Most medications have been stopped. He is unable to give much more history than what is in the chart, which includes anxiety, asthma, atrial fibrillation, bipolar disorder, COPD, questionable dementia, diabetes mellitus, diverticular disease, gastritis, hyperlipidemia, Parkinson's disease. FAMILY HISTORY: Not obtainable. SOCIAL HISTORY: Not obtainable. PHYSICAL EXAMINATION: GENERAL: The patient is awake, alert and easily arousable. VITAL SIGNS: Blood pressure of 121/72 with a pulse of 90, respiratory rate 20, he is afebrile, O2 sat 99% on room air. SKIN: Shows fair turgor. HEENT: Pupils are equal, reactive to light and accommodation. Mouth shows fair hygiene. LUNGS: Clear. HEART: Regular. No murmurs, no gallops. ABDOMEN: Soft, nontender, no organomegaly. EXTREMITIES: Shows no edema or cyanosis. CENTRAL NERVOUS SYSTEM: Mild confusion; otherwise, no gross neurologic deficits. LABORATORY DATA: Remarkable for WBC of 8.9, hemoglobin 10.3, platelet count 292,000. Sodium 138, potassium 3.7, BUN 22, creatinine 0.8. Serum glucose 131. Troponin less than 0.012. CT scan of the head shows no intracranial hemorrhage or mass effect, cerebral atrophy, bilateral periventricular subcortical and deep white matter hypodensities as described, no change from prior; chronic microvascular ischemic changes inferred, atherosclerotic vascular calcifications, chronic sinusitis. EKG official report pending, but reviewed by me shows normal sinus rhythm. Chest x-ray, no acute disease. IMPRESSION: Altered mental status, lethargy probably secondary to multiple pharmaceutical administration (polypharmacy). One, however, has to rule out central nervous system pathology including cerebrovascular accident, history of bipolar disorder. PLAN: Neurology evaluation. If cleared by Neurology, we will probably transfer back to psychiatric anne. Juni Gregorio MD
--- NOTE | 2018-07-29 19:15 | CARD ---
APPROVED REPORT Date of service: 07/29/2018 EXAM: Two-dimensional and M-mode echocardiogram with Doppler and color Doppler. Other Information Quality : GoodRhythm : NSR INDICATION Valvular disease 2D DIMENSIONS IVSd1.09 (0.7-1.1cm)LVDd3.74 (3.9-5.9cm) LVOT Diameter1.79 (1.8-2.4cm)PWd1.35 (0.7-1.1cm) IVSs1.42 (0.8-1.2cm)LVDs2.93 (2.5-4.0cm) FS (%) 21.8 %PWs1.19 (0.8-1.2cm) M-Mode DIMENSIONS Left Atrium (MM)4.68 (2.5-4.0cm)IVSd1.21 (0.7-1.1cm) Aortic Root3.32 (2.2-3.7cm)LVDd3.24 (4.0-5.6cm) Aortic Cusp Exc.1.85 (1.5-2.0cm)PWd1.35 (0.7-1.1cm) IVSs1.85 cmFS (%) 40 % LVDs1.94 (2.0-3.8cm)PWs1.41 cm Aortic Valve AoV Peak Znelsctu903.9cm/sAoV VTI18.8cmAO Peak GR.4mmHg LVOT Peak Ifrjbbno20.4cm/sLVOT VTI15.74cmAO Mean GR.2mmHg GISELLE (VMAX)1.29xt4UJA (VTI)1.16cm2 Mitral Valve MV E Bvndtxed76.8cm/sMV DECEL HIOT406goAM A Weahrzkc02.0cm/s MV QPM56jiU/A ratio0.8MVA (PHT)2.82cm2 TDI Lateral E' Peak V6.60cm/sMedial E' Peak V6.03cm/sE/Lateral E'9.5 E/Medial E'10.4 Tricuspid Valve TR Peak Wrudtmdy353iu/sRAP KQYCKNGR52liJuDR Peak Gr.14mmHg PDXS15tgZd LEFT VENTRICLE The left ventricle is normal size. There is borderline concentric left ventricular hypertrophy. The left ventricular systolic function is normal. The estimated ejection fraction is 55-60% No regional wall motion abnormalities noted.. Transmitral Doppler flow pattern is Grade I-abnormal relaxation pattern. No left ventricle thrombus noted on this study. There is no ventricular septal defect visualized. There is no left ventricular aneurysm. There is no mass noted in the left ventricle. RIGHT VENTRICLE The right ventricle is normal size. There is normal right ventricular wall thickness. The right ventricular systolic function is normal. ATRIA The left atrium is mildly dilated. The right atrium size is normal. The interatrial septum is intact with no evidence for an atrial septal defect. AORTIC VALVE The aortic valve is normal in structure. No aortic regurgitation is present. There is no aortic valvular stenosis. There is no aortic valvular vegetation. MITRAL VALVE The mitral valve is normal in structure. There is no evidence of mitral valve prolapse. There is no mitral valve stenosis. There is no mitral valve regurgitation noted. TRICUSPID VALVE The tricuspid valve is normal in structure. There is mild tricuspid valve regurgitation noted. RVSP is calculated at 20 mm Hg. There is no tricuspid valve prolapse or vegetation. There is no tricuspid valve stenosis. PULMONIC VALVE The pulmonary valve is normal in structure. There is no pulmonic valvular regurgitation. There is no pulmonic valvular stenosis. GREAT VESSELS The aortic root is normal in size. The ascending aorta is normal in size. The pulmonary artery is normal. The IVC is normal in size and collapses >50% with inspiration. PERICARDIAL EFFUSION There is no pericardial effusion. There is no pleural effusion. <Conclusion> There is borderline concentric left ventricular hypertrophy. The estimated ejection fraction is 55-60% Transmitral Doppler flow pattern is Grade I-abnormal relaxation pattern. The left atrium is mildly dilated. There is mild tricuspid valve regurgitation noted. RVSP is calculated at 20 mm Hg.
[2018-07-30 07:56] VITALS: BP 124/78; PULSE 100; RESP 20; TEMP 98; O2SAT 96
--- NOTE | 2018-07-30 08:56 | CP.PCM.CON ---
History of Present Illness - History of Present Illness History of Present Illness: Psychiatry consult note CC: "I want to go home." HPI: 72 yo male w/ h/o Schizoaffective disorder, recently admitted to geropsychiatry, then transferred to medicine after an [employer]. Patient has not had any behavioral issues in the past few days. He is currently, calm, cooperative, A + O x 4, reports that he wants to leave to return home. He denies acute depression/anxiety/AH/VH/paranoia/delusions/SI/HI. Past Psych Hx: Multiple past psychiatric admissions, most recent to [facility] in 2017. History of one suicide attempt by jumping in front of a car. No legal h/o. No h/o abuse/trauma. FHx: Denies family hx mental illness PMHx: Asthma, COPD, PD, Emphysema, HTN, HLD, DM, Gastritis, CAD Social Hx: No Etoh/drug/cig use. From [place]. 3 sisters and 6 brothers. Studied up to high school. 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 Lives with . Has 3 sons Impression: 72 yo male w/ h/o schizoaffective disorder, currently denying psychiatric complaints and is not agreeable to psychiatric admission. Patient does not meet criteria for involuntary psychiatric commitment at this time. -Continue Klonopin, Depakote and Seroquel -Continue outpatient psychiatric treatment -Patient is psychiatrically cleared for discharge Past Patient History - Infectious Disease Hx of Infectious Diseases: None - Tetanus Immunizations Tetanus Immunization: Unknown - Past Medical History & Family History Past Medical History?: Yes - Past Social History Smoking Status: Smoker Currrent Status Unknown - CARDIAC Hx Cardiac Disorders: Yes Hx Hypercholesterolemia: Yes - PULMONARY Hx Respiratory Disorders: Yes Hx Chronic Obstructive Pulmonary Disease (COPD): Yes - NEUROLOGICAL Hx Neurological Disorder: Yes Hx Dementia: Yes Hx Parkinson's Disease: Yes - HEENT Hx HEENT Problems: No - RENAL Hx Chronic Kidney Disease: No - ENDOCRINE/METABOLIC Hx Endocrine Disorders: Yes Hx Diabetes Mellitus Type 2: Yes - HEMATOLOGICAL/ONCOLOGICAL Hx AIDS: No Hx Human Immunodeficiency Virus (HIV): No - INTEGUMENTARY Hx Dermatological Problems: No - MUSCULOSKELETAL/RHEUMATOLOGICAL Hx Musculoskeletal Disorders: No Hx Falls: No - GASTROINTESTINAL Hx Diverticulitis: Yes Hx Gall Bladder Disease: Yes Hx Gastritis: Yes - GENITOURINARY/GYNECOLOGICAL Hx Sexually Transmitted Disorders: No - PSYCHIATRIC Hx Psychophysiologic Disorder: Yes Hx Bipolar Disorder: Yes Hx Depression: Yes Hx Schizophrenia: Yes Hx Substance Use: No - SURGICAL HISTORY Hx Appendectomy: Yes Hx Cholecystectomy: Yes - ANESTHESIA Hx Anesthesia: Yes Hx Anesthesia Reactions: No Hx Malignant Hyperthermia: No Meds Allergies/Adverse Reactions: Allergies Allergy/AdvReac Type Severity Reaction Status Date / Time No Known Allergies Allergy Verified 07/29/18 04:44 - Medications Medications: Current Medications Aspirin (Ecotrin) 325 mg PO DAILY [facility] Last Admin: 07/29/18 10:54 Dose: 325 mg Carbidopa/Levodopa (Sinemet) 1 tab PO Q8 [facility] Last Admin: 07/30/18 00:48 Dose: 1 tab Losartan Potassium (Cozaar) 25 mg PO DAILY [facility] Metoprolol Tartrate (Lopressor) 50 mg PO DAILY [facility] Tamsulosin HCl (Flomax) 0.4 mg PO HS [facility] Last Admin: 07/29/18 22:06 Dose: 0.4 mg Results - Vital Signs Recent Vital Signs: Last Vital Signs Temp 98.0 F 07/30/18 07:55 Pulse 100 H 07/30/18 07:55 Resp 20 07/30/18 07:55 BP 124/78 07/30/18 07:55 Pulse Ox 96 07/30/18 07:55 - Labs Result Diagrams: 07/29/18 05:00 07/29/18 05:00 Labs: Laboratory Results - last 24 hr 07/29/18 07/30/18 05:00 05:47 POC Glucose (mg/dL) 139 H Hemoglobin A1c 7.2 H
--- NOTE | 2018-07-30 08:58 | CP.PCM.PN ---
Subjective - Date & Time of Evaluation Date of Evaluation: 07/30/18 Time of Evaluation: 09:00 - Subjective Subjective: AWAKE/ALERT AND ORIENTED AMBULATING AROUND HALLWAY WITHOUT DISTRESS REFUSING TO GO BACK TO [facility] AND WANTS TO GO HOME VSS Objective - Vital Signs/Intake and Output Vital Signs (last 24 hours): Temp Pulse Resp BP Pulse Ox 98.0 F 100 H 20 124/78 96 07/30/18 07:55 07/30/18 07:55 07/30/18 07:55 07/30/18 07:55 07/30/18 07:55 - Medications Medications: Current Medications Aspirin (Ecotrin) 325 mg PO DAILY [facility] Last Admin: 07/29/18 10:54 Dose: 325 mg Carbidopa/Levodopa (Sinemet) 1 tab PO Q8 [facility] Last Admin: 07/30/18 00:48 Dose: 1 tab Losartan Potassium (Cozaar) 25 mg PO DAILY [facility] Metoprolol Tartrate (Lopressor) 50 mg PO DAILY [facility] Tamsulosin HCl (Flomax) 0.4 mg PO HS [facility] Last Admin: 07/29/18 22:06 Dose: 0.4 mg - Labs Labs: 07/29/18 05:00 07/29/18 05:00 PT 13.3 Seconds (9.8-13.1) H 07/29/18 05:00 INR 1.2 07/29/18 05:00 APTT 28.9 Seconds (25.6-37.1) 07/29/18 05:00 - Constitutional Appears: No Acute Distress - Head Exam Head Exam: ATRAUMATIC, NORMAL INSPECTION, NORMOCEPHALIC - Eye Exam Eye Exam: EOMI, Normal appearance, PERRL Pupil Exam: NORMAL ACCOMODATION, PERRL - ENT Exam ENT Exam: Mucous Membranes Moist, Normal Exam - Neck Exam Neck Exam: Full ROM, Normal Inspection. absent: Lymphadenopathy - Respiratory Exam Respiratory Exam: Clear to Ausculation Bilateral, NORMAL BREATHING PATTERN - Cardiovascular Exam Cardiovascular Exam: REGULAR RHYTHM, +S1, +S2. absent: Murmur - GI/Abdominal Exam GI & Abdominal Exam: Soft, Normal Bowel Sounds. absent: Tenderness - Rectal Exam Rectal Exam: NORMAL INSPECTION - Extremities Exam Extremities Exam: Full ROM, Normal Capillary Refill, Normal Inspection. absent: Joint Swelling, Pedal Edema - Back Exam Back Exam: NORMAL INSPECTION - Neurological Exam Neurological Exam: Alert, Awake, CN II-XII Intact, Normal Gait, Oriented x3 - Psychiatric Exam Psychiatric exam: Normal Affect, Normal Mood - Skin Skin Exam: Dry, Intact, Normal Color, Warm Assessment and Plan - Assessment and Plan (Free Text) Assessment: ALTERED MENTAL STATUS IMPROVED PARKINSONS DZ--STABLE COPD-STABLE HX OF DEMENTIA HX OF SCHIZOAFFECTIVE DZ Plan: ALL NEURO WORKUP SO FAR NON-REVEALING FOR CVA LABS AND ECHO REVIEWED PLAN-PSYCH TO RE-EVALUATE FOR TRANSFER BACK TO [facility] OR D/C HOME IF CLEARED
--- NOTE | 2018-07-30 09:27 | CP.PCM.PCO ---
Assessment & Plan - Assessment and Plan (Free Text) Assessment: pt. seen and examined feels well, denies dizziness, h/a , sob fever or chills, ambulating in hallway aaox3, pt. anxious to d/c home MRI/ imaging reports noted and d/w neuro pt. seen by for f/u, recommended to resume all psych meds pt. cleared for d/c to home today by and pt. to f/u with pmd f/u with pt. psychiatrist above /d/w
[2018-07-30] MEDS: Aspirin 325 mg EC Tablets PO SCH (09:33)
[2018-07-30] MEDS ORDERED: Divalproex 250 mg DR(BID formulation) PO SCH (22:00)
[2018-07-31] MEDS ORDERED: Divalproex 500 mg DR(BID formulation) PO SCH (09:00)
== END 2018-07-30 10:42 | disposition home or self-care (01) ==
LOC: H.ER 04:38 → H.ERHOLD 05:45 → H.TEL 06:58
PROVIDERS: ADMIT Internal Medicine Pulmonary Disease; ATTEND Internal Medicine Pulmonary Disease
DX: R41.82 Altered mental status, unspecified (principal); I48.91 Unspecified atrial fibrillation; J43.9 Emphysema, unspecified; G20 Parkinson's disease; F31.9 Bipolar disorder, unspecified; F25.9 Schizoaffective disorder, unspecified; E11.9 Type 2 diabetes mellitus without complications; E78.00 Pure hypercholesterolemia, unspecified; K29.70 Gastritis, unspecified, without bleeding; Z79.84 Long term (current) use of oral hypoglycemic drugs; Z79.82 Long term (current) use of aspirin; F03.91 Unspecified dementia, unspecified severity, with behavioral disturbance; I10 Essential (primary) hypertension; I25.10 Atherosclerotic heart disease of native coronary artery without angina pectoris
CPT/HCPCS: 70450; 70551; 71045; 80053; 80061; 82948; 83036; 84484; 85025; 85610; 85730; 86850; 86900; 92526; 92610; 93005; 93306; 97162; 97165; 97530; 99285; G0378; G8987; G8988; G8996; G8997; G8998; J7030